=== PATIENT | female | born 1955 | race Caucasian/White ===

== ENCOUNTER → 2020-04-07 08:58 | Outpatient (CLI) | payer MEDICARE, SELFPAY ==
[2020-04-07 09:59] LABS: Alanine Aminotransferase 24 IU/L (<35); Albumin 4.4 g/dL (3.5-5.0); Albumin Globulin Ratio 1.4 (1.0-2.8); Alkaline Phosphatase 117 U/L (38-126); Aspartate Aminotransferase 33 IU/L (14-36); BUN Creatinine Ratio 24.3 (6-22); Bilirubin Total 0.4 mg/dL (0.2-1.3); Blood Urea Nitrogen 27 mg/dL (7-17); Calcium 9.9 mg/dL (8.4-10.2); Carbon Dioxide 27 mmol/L (22-32); Chloride 104 mmol/L (98-107); Cholesterol 191 mg/dL (140-199); Estimated Glomerular Filt Rate 49.6 mL/min (>60); Globulin 3.1 g/dL (1.7-4.1); Glucose 186 mg/dL (80-110); HDL Cholesterol 55 mg/dL (40-60); HEMOLYSIS < 15 (0-50); LDL Cholesterol Calculated 117 mg/dL (<100); Potassium 4.4 mmol/L (3.4-5.1); Sodium 140 mmol/L (137-145); Total Protein 7.5 g/dL (6.3-8.2); Triglycerides 97 mg/dL (35-150)
[2020-04-07 10:07] LABS: Creatinine Urine Random 269.8 mg/dL
[2020-04-07 10:26] LABS: Microalbumi Creatinin Ratio Ur 109.7 ug/mg CR (<30); Microalbumin Urine Random 29.6 mg/dL (0-1.6)
[2020-04-07 10:30] LABS: TSH w/ Reflex to FT4 2.92 uIU/mL (0.47-4.68)
== END ==
PROVIDERS: PCP Internal Medicine; Referring Provider Internal Medicine; Visit Provider Internal Medicine
DX: E10.65 Type 1 diabetes mellitus with hyperglycemia (principal)
CPT/HCPCS: 36415; 80053; 80061; 82043; 82570; 84443

== ENCOUNTER 2020-04-09 09:46 | Emergency (ER) | payer MEDICARE, SELFPAY ==
--- NOTE | 2020-04-09 | DI.CT.S_ITS ---
PROCEDURE: CT CERVICAL SPINE WO CON INDICATIONS: FALL TECHNIQUE: Noncontrast 3 mm thick sections acquired from the skull base to the T4 level. Sagittal and coronal reformats were then constructed. For radiation dose reduction, the following was used: automated exposure control, adjustment of mA and/or kV according to patient size. COMPARISON: [facility], CR, XR HAND LT MIN 3V, 04/09/2020, 10:44. [facility], CT, CT HEAD/BRAIN WO CON, 04/09/2020, 10:44. FINDINGS: Image quality: Excellent. Bones: No fractures or dislocations. Visualized superior ribs are intact. Mild, age-appropriate degenerative changes are seen. Soft tissues: Prevertebral soft tissues are normal in thickness. No paravertebral hematomas. No apical pneumothoraces. IMPRESSION: Normal study for age, without fractures. Dictated by: Bernardino Irving M.D. on 04/09/2020 at 10:02 Approved by: Bernardino Irving M.D. on 04/09/2020 at 10:03
[2020-04-09 10:20] VITALS: BP 138/65; PULSE 74; RESP 16; TEMP 36.5; O2SAT 96
[2020-04-09 10:39] VITALS: BMI 29.0
--- NOTE | 2020-04-09 10:39 | DI.RAD.S_ITS ---
PROCEDURE: XR HAND LT MIN 3V INDICATIONS: fall TECHNIQUE: 3 views of the hand(s) acquired. COMPARISON: None. FINDINGS: Bones: No fractures or dislocations. Carpal bones are normally aligned. No suspicious bony lesions. Age-appropriate bony degenerative changes are seen. Soft tissues: No suspicious soft tissue calcifications. IMPRESSION: No displaced fractures are seen on these plain films. If there is focal tenderness, or other clinical concern for a fracture not seen on these images in this patient with a given history of trauma, please consider a dedicated CT or a short-term followup plain film series (in 1-2 weeks) for further evaluation. Dictated by: Bernardino Irving M.D. on 04/09/2020 at 10:01 Approved by: Bernardino Irving M.D. on 04/09/2020 at 10:01
--- NOTE | 2020-04-09 10:43 | DI.CT.S_ITS ---
PROCEDURE: CT HEAD/BRAIN WO CON INDICATIONS: on Plavix. s/p fall with head injury TECHNIQUE: Noncontrast 4.5 mm thick angled axial sections acquired from the foramen magnum to the vertex, with coronal and sagittal reformats. For radiation dose reduction, the following was used: automated exposure control, adjustment of mA and/or kV according to patient size. COMPARISON: [facility], CR, XR HAND LT MIN 3V, 04/09/2020, 10:44. [facility], CT, CT CERVICAL SPINE WO CON, 04/09/2020, 10:44. FINDINGS: Image quality: Excellent. CSF spaces: Basal cisterns are patent. No extra-axial fluid collections. The ventricles are symmetric in size and shape. Brain: No intracranial bleeds or masses. There is cerebral volume loss for age, with resultant ventricular and sulcal prominence. There are periventricular and deep white matter chronic small vessel ischemic changes. There is intracranial internal carotid artery atherosclerosis. Skull and face: Calvarium and visualized facial bones appear intact, without suspicious lesions. Sinuses: Visualized sinuses and mastoids are clear. IMPRESSION: No acute intracranial hemorrhage is seen. No acute intracranial process is seen. Dictated by: Bernardino Irving M.D. on 04/09/2020 at 9:59 Approved by: Bernardino Irving M.D. on 04/09/2020 at 10:01
--- NOTE | 2020-04-09 11:18 | ED.UPPEXIN ---
HPI - Extremity Injury (Upper) <CHOLO Silva - Last Filed: 04/09/20 15:37> General Chief Complaint: Trauma Stated Complaint: fell, hurt left wrist Time Seen by Provider: 04/09/20 11:08 Source: patient and family Mode of arrival: Family Vehicle Limitations: no limitations History of Present Illness HPI narrative: 64yo female with a history of [place] (currently taking Plavix and aspirin), diabetes type 1, and Parkinson's, presents emergency department for left hand pain after fall. She states fall happened on Friday, she tripped while walking and fell on her left hand and hit the left side of her head on the ground. She denies any loss of consciousness, profuse bleeding, dizziness or lightheadedness before the fall. Patient states she was able to get up and walk around after the fall. She did notice some bruising to her left hand at that time. Denied any vomiting, vision changes, difficulty with speech, or difficulty with gait post fall. Patient states she has felt occasionally lightheaded when transitioning from the sitting to standing position after the fall, states these episodes last 1-2 seconds and only occur when she stands up quickly. Patient denies any other concerns such as vision changes, headache, neck pain, chest pain, shortness of breath, vomiting, diarrhea, dysuria, cough, fever, or any other concerns. Modified trauma. Related Data Allergies Allergy/AdvReac Type Severity Reaction Status Date / Time No Known Drug Allergies Allergy Verified 04/09/20 10:46 Review of Systems <CHOLO Silva - Last Filed: 04/09/20 15:37> Review of Systems Narrative: REVIEW OF SYSTEMS: GENERAL: Denies fever or chills. HENT: No head trauma. EYES: No vision changes. CARDIOVASCULAR: No chest pain or syncope. RESPIRATORY: No shortness of breath or cough. GASTROINTESTINAL: No vomiting, diarrhea, or constipation. GENITOURINARY: No flank pain or dysuria. MUSCULOSKELETAL: Complains of left hand pain, see HPI. INTEGUMENTARY: No lesions, reports bruising, see HPI. NEURO: No numbness, tingling. Patient History <CHOLO Silva - Last Filed: 04/09/20 15:37> Medical History No significant medical problems (Acute) Social History Smoking Status: Never smoker Smoking Status: Never smoker alcohol intake frequency: 0-2 drinks per day Substance Use Type: does not use Exam <CHOLO Silva - Last Filed: 04/09/20 15:37> Initial Vital Signs Initial Vital Signs: Vital Signs Temperature 97.7 F 04/09/20 10:20 Pulse Rate 74 04/09/20 10:20 Respiratory Rate 16 04/09/20 10:20 Blood Pressure 138/65 04/09/20 10:20 Pulse Oximetry 96 04/09/20 10:20 PHYSICAL EXAMINATION: GENERAL: Well groomed, alert, and cooperative. Answers questions promptly and appropriately. Vital signs noted. HENT: Normocephalic, a small 2 cm x 2 cm area of ecchymosis noted to left forehead above left eyebrow. A 1 cm x 2 cm abrasion noted to bridge of nose, no tenderness to palpation, no ecchymosis. EYES: PERRLA, EOMIs, Symmetrical, sclera white, no periorbital swelling. CARDIOVASCULAR: S1 and S2 sounds normal. Regular rate and rhythm, no murmurs, clicks, or bruits. No pedal edema. RESPIRATORY: Normal respiratory rate, trachea midline, airway patent. No stridor, nasal flaring or accessory muscle use. Lungs are clear in all paul. MUSCULOSKELETAL: Ecchymosis noted to palmar aspect of hand tenderness between 2nd and 4th metatarsals. Patient able to move wrist, no tenderness to wrist. Patient able to make a fist slowly due to pain. Small amount of swelling noted to dorsal aspect of hand. No tenderness to shoulders, elbows, hips, knees, or feet. Normal gait and coordination. Equal tone and mass bilaterally. No spinal tenderness or deformities. EXTREMITIES: CMS intact. No pedal edema. SKIN: Warm, dry, soft, appropriate color for ethnicity. Lesion on nose as described above. NEURO: Alert and Oriented X 3. No sensory deficits. PSYCH: Appropriate affect and mood. <Boni Lugo MD - Last Filed: 04/10/20 19:35> Initial Vital Signs Initial Vital Signs: Vital Signs Temperature 97.7 F 04/09/20 10:20 Pulse Rate 74 04/09/20 10:20 Respiratory Rate 16 04/09/20 10:20 Blood Pressure 138/65 04/09/20 10:20 Pulse Oximetry 96 04/09/20 10:20 Scores <CHOLO Silva - Last Filed: 04/09/20 15:37> GCS Bryon coma scale eye opening: Spontaneous Bryon coma scale verbal response: Orientated Bryon coma scale motor response: Obey commands Cuney coma scale total score: 15 Course <CHOLO Silva - Last Filed: 04/09/20 15:37> Course Course Narrative: Patient was re-evaluated before discharge. She was able to transition from sitting position to standing rapidly without dizziness. Orders Ordered: Discontinued Medications Sodium Chloride (Normal Saline 0.9%) 1,000 mls @ 1,000 mls/hr IV BOLUS ONE Stop: 04/09/20 12:19 Last Infusion: 04/09/20 13:00 Dose: 0 mls/hr Documented by: Admin: 04/09/20 11:42 Dose: 1,000 mls/hr Documented by: HERMELINDO Consultations Consultation #1: Patient staffed with Dr. Lugo discussed mechanism of injury, symptoms, tests, has resolved as well as plan of care. Vital Signs Vital signs: Vital Signs - 8 hr 04/09/20 10:20 04/09/20 11:44 Temperature 97.7 F Pulse Rate 74 68 Respiratory Rate 16 16 Blood Pressure [Left Arm] 138/65 133/63 Pulse Oximetry 96 98 <Boni Lugo MD - Last Filed: 04/10/20 19:35> Orders Ordered: Discontinued Medications Sodium Chloride (Normal Saline 0.9%) 1,000 mls @ 1,000 mls/hr IV BOLUS ONE Stop: 04/09/20 12:19 Last Infusion: 04/09/20 13:00 Dose: 0 mls/hr Documented by: Admin: 04/09/20 11:42 Dose: 1,000 mls/hr Documented by: HERMELINDO Vital Signs Vital signs: Vital Signs - 8 hr 04/09/20 10:20 04/09/20 11:44 Temperature 97.7 F Pulse Rate 74 68 Respiratory Rate 16 16 Blood Pressure [Left Arm] 138/65 133/63 Pulse Oximetry 96 98 MDM - Extremity Injury (Upper) <CHOLO Silva - Last Filed: 04/09/20 15:37> Medical Records Attestation: I reviewed the patient's medical records. Lab Data Attestation: I reviewed the patient's lab results. Result diagrams: 04/09/20 11:41 04/09/20 11:41 Labs: Lab Results 04/09/20 04/09/20 04/09/20 Range/Units 11:41 11:41 11:41 WBC 6.8 (4.5-11.0) X10^3/uL RBC 4.31 (4.0-5.2) X10^6/uL Hgb 13.9 (12.0-16.0) g/dL Hct 39.7 (36-46) % MCV 92.1 (80-100) fL MCH 32.2 (26-34) PG MCHC 35.0 (30-36) % RDW 13.2 (11.6-14.8) % Plt Count 254 (150-400) X10^3/uL Neut % (Auto) 71.7 (50-75) % Lymph % (Auto) 21.1 L (25-40) % [place] % (Auto) 5.4 (3-14) % Eos % (Auto) 1.3 L (2-4) % Baso % (Auto) 0.5 (0-2) % Neut # (Auto) 4800 (3088-2075) /uL Lymph # (Auto) 1400 (8497-1759) /uL [place]enedy # (Auto) 400 (0-900) /uL Eos # (Auto) 100 (0-450) /uL Baso # (Auto) 0 (0-100) /uL Sodium 143 (137-145) mmol/L Potassium 4.4 (3.4-5.1) mmol/L Chloride 106 (98-107) mmol/L Carbon Dioxide 31 (22-32) mmol/L BUN 27 H (7-17) mg/dL Creatinine 0.98 (0.52-1.04) mg/dL Estimated GFR 57.3 L (>60) mL/min BUN/Creatinine Ratio 27.6 H (6-22) Glucose 153 H (80-110) mg/dL Calcium 9.2 (8.4-10.2) mg/dL Total Bilirubin 0.5 (0.2-1.3) mg/dL AST 33 (14-36) IU/L ALT 21 (<35) IU/L Alkaline Phosphatase 86 (38-126) U/L Total Creatine Kinase 170 H (30-135) U/L CK-MB (CK-2) 0.80 (<2.37) ng/mL CK-MB (CK-2) Rel Index 0.5 L (1.5-5.0) % Troponin I < 0.012 (0.01-0.034) ng/mL Total Protein 7.3 (6.3-8.2) g/dL Albumin 4.0 (3.5-5.0) g/dL Globulin 3.3 (1.7-4.1) g/dL Albumin/Globulin Ratio 1.2 (1.0-2.8) Imaging Data CT scan - head: Radiologist's Impression: [address] [address] [address] Scan Report Signed Patient: Maribell Banerjee#: [id number] : 6Acct:[id number] Age/Sex: 64 / FDate of Service: 04/09/20 Loc: ED Accession Number: [id number] Procedure: CT head/brain wo con Ordering Provider: Boni Lugo MD PROCEDURE: CT HEAD/BRAIN WO CON INDICATIONS: on Plavix. s/p fall with head injury TECHNIQUE: Noncontrast 4.5 mm thick angled axial sections acquired from the foramen magnum to the vertex, with coronal and sagittal reformats. For radiation dose reduction, the following was used: automated exposure control, adjustment of mA and/or kV according to patient size. COMPARISON: [facility], CR, XR HAND LT MIN 3V, 04/09/2020, 10:44. [facility], CT, CT CERVICAL SPINE WO CON, 04/09/2020, 10:44. FINDINGS: Image quality: Excellent. CSF spaces: Basal cisterns are patent. No extra-axial fluid collections. The ventricles are symmetric in size and shape. Brain: No intracranial bleeds or masses. There is cerebral volume loss for age, with resultant ventricular and sulcal prominence. There are periventricular and deep white matter chronic small vessel ischemic changes. There is intracranial internal carotid artery atherosclerosis. Skull and face: Calvarium and visualized facial bones appear intact, without suspicious lesions. Sinuses: Visualized sinuses and mastoids are clear. IMPRESSION: No acute intracranial hemorrhage is seen. No acute intracranial process is seen. Dictated by: Bernardino Irving M.D. on 04/09/2020 at 9:59 Approved by: Bernardino Irving M.D. on 04/09/2020 at 10:01 CT - cervical spine: Radiologist's Impression: [address] [address] [address] Scan Report Signed Patient: Theresa Banerjee#: [id number] : 6Acct:[id number] Age/Sex: 64 / FDate of Service: 04/09/20 Loc: ED Accession Number: [id number] Procedure: CT cervical spine wo con Ordering Provider: EMANI Chandler PROCEDURE: CT CERVICAL SPINE WO CON INDICATIONS: FALL TECHNIQUE: Noncontrast 3 mm thick sections acquired from the skull base to the T4 level. Sagittal and coronal reformats were then constructed. For radiation dose reduction, the following was used: automated exposure control, adjustment of mA and/or kV according to patient size. COMPARISON: [facility], CR, XR HAND LT MIN 3V, 04/09/2020, 10:44. [facility], CT, CT HEAD/BRAIN WO CON, 04/09/2020, 10:44. FINDINGS: Image quality: Excellent. Bones: No fractures or dislocations. Visualized superior ribs are intact. Mild, age-appropriate degenerative changes are seen. Soft tissues: Prevertebral soft tissues are normal in thickness. No paravertebral hematomas. No apical pneumothoraces. IMPRESSION: Normal study for age, without fractures. Dictated by: Bernardino Irving M.D. on 04/09/2020 at 10:02 Approved by: Bernardino Irving M.D. on 04/09/2020 at 10:03 Extremity x-ray #1: Radiologist's Impression: [address] [address] XRay Report Signed Patient: Theresa Banerjee#: [id number] : 6Acct:[id number] Age/Sex: 64 / FDate of Service: 04/09/20 Loc: ED Accession Number: [id number] Procedure: XR hand LT min 3V Ordering Provider: Boni Lugo MD PROCEDURE: XR HAND LT MIN 3V INDICATIONS: fall TECHNIQUE: 3 views of the hand(s) acquired. COMPARISON: None. FINDINGS: Bones: No fractures or dislocations. Carpal bones are normally aligned. No suspicious bony lesions. Age-appropriate bony degenerative changes are seen. Soft tissues: No suspicious soft tissue calcifications. IMPRESSION: No displaced fractures are seen on these plain films. If there is focal tenderness, or other clinical concern for a fracture not seen on these images in this patient with a given history of trauma, please consider a dedicated CT or a short-term followup plain film series (in 1-2 weeks) for further evaluation. Dictated by: Bernardino Irving M.D. on 04/09/2020 at 10:01 Approved by: Bernardino Irving M.D. on 04/09/2020 at 10:01 ECG Data Interpretation: Normal sinus rhythm. Rate 69, WA interval 146, QTC 424. No ST elevation or ST depression. No T-wave abnormality. Artifact noted in V1 through V3. EKG also viewed by Dr. Lugo per protocol. MDM Narrative Medical decision making narrative: 64 year old female currently taking Plavix and aspirin, presents emergency department for left hand pain and head trauma after a fall while hitting her head. Mechanism of fall appears to be mechanical due to description which is confirmed by her family member in the room. Patient also has a history of Parkinson's that can affect her gait at times. Head and neck CT ordered due to obvious head trauma, patient is currently on a blood thinner. Laboratory work was ordered as patient reported some brief episodes of dizziness when transitioning from sitting to standing post fall. This appears most likely to be orthostatic hypotension which may are may not be related to past fall. However this was completely resolved after administration of fluids. Laboratory work was ordered to evaluate patient for other complications that may results and positional dizziness. Troponin negative, Laboratory work was non-remarkable, EKG within normal limits. Less concern for syncope or presyncopal episode due to laboratory findings, clear description, and lack of other concerning symptoms. I suspect patient's hand pain is most likely caused from a contusion and or hand sprain. There is significant bruising and swelling, x-ray was negative. Patient was encouraged to follow up in 1-2 weeks for further evaluation if pain continues due to significant swelling. She was encouraged to use a wrist brace but not for a prolonged duration of time due to risk for muscle atrophy. Less concern for any other injuries as major joints for palpated without pain, patient was able to walk without difficulty, fall occurred over 24 hours ago and no new symptoms developed. Less concern for intracranial bleed, head and neck CT are negative, small amount of trauma noted on forehead, no high-risk symptoms such as syncope or vomiting post fall. 24 hours have passed since the fall and patient is neurologically intact. Strict return precautions given and follow-up instructions discussed. Patient agreed to plan of care. <Boni Lugo MD - Last Filed: 04/10/20 19:35> Lab Data Labs: Lab Results 04/09/20 04/09/20 04/09/20 Range/Units 11:41 11:41 11:41 WBC 6.8 (4.5-11.0) X10^3/uL RBC 4.31 (4.0-5.2) X10^6/uL Hgb 13.9 (12.0-16.0) g/dL Hct 39.7 (36-46) % MCV 92.1 (80-100) fL MCH 32.2 (26-34) PG MCHC 35.0 (30-36) % RDW 13.2 (11.6-14.8) % Plt Count 254 (150-400) X10^3/uL Neut % (Auto) 71.7 (50-75) % Lymph % (Auto) 21.1 L (25-40) % Kenedy % (Auto) 5.4 (3-14) % Eos % (Auto) 1.3 L (2-4) % Baso % (Auto) 0.5 (0-2) % Neut # (Auto) 4800 (1654-1730) /uL Lymph # (Auto) 1400 (2576-5690) /uL Kenedy # (Auto) 400 (0-900) /uL Eos # (Auto) 100 (0-450) /uL Baso # (Auto) 0 (0-100) /uL Sodium 143 (137-145) mmol/L Potassium 4.4 (3.4-5.1) mmol/L Chloride 106 (98-107) mmol/L Carbon Dioxide 31 (22-32) mmol/L BUN 27 H (7-17) mg/dL Creatinine 0.98 (0.52-1.04) mg/dL Estimated GFR 57.3 L (>60) mL/min BUN/Creatinine Ratio 27.6 H (6-22) Glucose 153 H (80-110) mg/dL Calcium 9.2 (8.4-10.2) mg/dL Total Bilirubin 0.5 (0.2-1.3) mg/dL AST 33 (14-36) IU/L ALT 21 (<35) IU/L Alkaline Phosphatase 86 (38-126) U/L Total Creatine Kinase 170 H (30-135) U/L CK-MB (CK-2) 0.80 (<2.37) ng/mL CK-MB (CK-2) Rel Index 0.5 L (1.5-5.0) % Troponin I < 0.012 (0.01-0.034) ng/mL Total Protein 7.3 (6.3-8.2) g/dL Albumin 4.0 (3.5-5.0) g/dL Globulin 3.3 (1.7-4.1) g/dL Albumin/Globulin Ratio 1.2 (1.0-2.8) Discharge Plan Departure Patient Disposition: Home Clinical Impression: Sprain of wrist Qualifiers: Encounter type: initial encounter Laterality: left Qualified Code(s): S63.502A - Unspecified sprain of left wrist, initial encounter Contusion of hand Qualifiers: Encounter type: initial encounter Laterality: left Qualified Code(s): S60.222A - Contusion of left hand, initial encounter Fall Qualifiers: Encounter type: initial encounter Qualified Code(s): W19.XXXA - Unspecified fall, initial encounter Closed head injury Qualifiers: Encounter type: initial encounter Qualified Code(s): S09.90XA - Unspecified injury of head, initial encounter Discharge Date/Time: 04/09/20 13:01 Instructions: DI for Concussion, DI for Wrist Sprain Activity Restrictions/Additional Instructions: Thank you for entrusting me with your care today. As discussed, your x-ray is negative for any fractures in your hand or wrist. Your head CT and neck CT is negative for any fractures or bleeding. I recommend wearing a brace for 3-5 days to help with hand pain, remove the brace 10 times a day to move in stretch her hand. Try not to wear the brace longer than 7-10 days as it can cause muscle weakness. If you continued to have pain in your hand, follow-up with your primary care provider for further evaluation. Since you hit your head when he fell, you may experience increased tiredness, light sensitivity, and occasional dizziness. If these symptoms worsen or you develop severe pain, vomiting, chest pain, fevers, vision changes, or any other concerns please return emergency department immediately. Referrals: Karis Orozco MD [Primary Care Provider] -
[2020-04-09] MEDS: SODIUM CHLORIDE 0.9% 1,000 ML 1000 ML IV (11:42)
[2020-04-09 11:44] VITALS: BP 133/63; PULSE 68; RESP 16; O2SAT 98
[2020-04-09 11:49] LABS: Add Manual Diff / Slide Review NO; Basophils Absolute Auto 0 /uL (0-100); Basophils Percent Auto 0.5 % (0-2); Eosinophils Absolute Auto 100 /uL (0-450); Eosinophils Percent Auto 1.3 % (2-4); Hematocrit 39.7 % (36-46); Hemoglobin 13.9 g/dL (12.0-16.0); Lymphocytes Absolute Auto 1400 /uL (1100-4500); Lymphocytes Percent Auto 21.1 % (25-40); Mean Corpuscular Hemoglobin 32.2 PG (26-34); Mean Corpuscular Volume 92.1 fL (80-100); Monocytes Absolute Auto 400 /uL (0-900); Monocytes Percent Auto 5.4 % (3-14); Neutrophils Absolute Auto 4800 /uL (1500-7000); Neutrophils Percent Auto 71.7 % (50-75); Platelet Count 254 X10^3/uL (150-400); Red Blood Cell Count 4.31 X10^6/uL (4.0-5.2); Red Cell Distribution Width 13.2 % (11.6-14.8); White Blood Cell Count 6.8 X10^3/uL (4.5-11.0)
[2020-04-09 12:00] LABS: Creatine Kinase 170 U/L (30-135)
[2020-04-09 12:02] LABS: Alanine Aminotransferase 21 IU/L (<35); Albumin Globulin Ratio 1.2 (1.0-2.8); Alkaline Phosphatase 86 U/L (38-126); Aspartate Aminotransferase 33 IU/L (14-36); BUN Creatinine Ratio 27.6 (6-22); Bilirubin Total 0.5 mg/dL (0.2-1.3); Blood Urea Nitrogen 27 mg/dL (7-17); Calcium 9.2 mg/dL (8.4-10.2); Carbon Dioxide 31 mmol/L (22-32); Chloride 106 mmol/L (98-107); Estimated Glomerular Filt Rate 57.3 mL/min (>60); Globulin 3.3 g/dL (1.7-4.1); Glucose 153 mg/dL (80-110); HEMOLYSIS < 15 (0-50); Potassium 4.4 mmol/L (3.4-5.1); Sodium 143 mmol/L (137-145); Total Protein 7.3 g/dL (6.3-8.2)
[2020-04-09 12:13] LABS: Troponin I < 0.012 ng/mL (0.01-0.034)
[2020-04-09 12:16] LABS: CKMB % Relative Index 0.5 % (1.5-5.0)
== END 2020-04-09 13:01 | disposition home or self-care (01) ==
PROVIDERS: Emergency Provider Nurse Practitioner; PCP Internal Medicine
DX: S63.502A Unspecified sprain of left wrist, initial encounter (principal); S60.222A Contusion of left hand, initial encounter; S09.90XA Unspecified injury of head, initial encounter; W19.XXXA Unspecified fall, initial encounter; Z79.01 Long term (current) use of anticoagulants; Z79.82 Long term (current) use of aspirin; E10.9 Type 1 diabetes mellitus without complications; G20 Parkinson's disease
CPT/HCPCS: 36415; 70450; 72125; 73130; 80053; 82550; 82553; 84484; 85025; 93005; 96360; 99285

== ENCOUNTER 2020-06-29 11:31 | Emergency (ER) | payer MEDICARE, SELFPAY ==
[2020-06-29 11:38] VITALS: BP 138/71; PULSE 89; RESP 12; TEMP 36.4; O2SAT 98
--- NOTE | 2020-06-29 11:47 | ED_ITS ---
HPI - Extremity Problem <Zelda Gambino PA-C - Last Filed: 06/29/20 22:32> General Chief complaint: Extremity Problem,Nontraumatic Stated complaint: thinks she has a blood clot in her left leg Time Seen by Provider: 06/29/20 11:38 Source: patient Mode of arrival: Ambulatory History of Present Illness HPI Narrative: A 64-year-old nonsmoking woman with a history of DVT, cardiac stents and type 1 diabetes who presents to the emergency department complaining of 4/10 throbbing left leg pain that began yesterday evening when she was at rest, this morning she woke up to find that her left thigh felt like it had a tight band around it across the front, this has since resolved. She says that the calf pain feels similar to her previous DVT that she had on the right side approximately 8 years ago. She does take aspirin and clopidogrel, she denies any other symptoms and has otherwise been in her normal state of health. She says she has not done anything differently recently in terms of new exercises or activities that might have strained her leg muscles or caused this pain and also denies any recent falls, she has not had any medication changes, she does have an insulin pump. She denies any use of estrogen containing products/medications, any cancer history, recent fever, shortness of breath, chills, nausea, vomiting, chest pain, palpitations, recent travel or prolonged immobility. MD Complaint: extremity pain Onset (ago): hour(s) (16) Pain Consistency: constant Location: left and lower extremity Severity scale (1-10): 4 Quality: dull and other (thobbing in calf, also a band around her upper thigh in front) Radiation: proximal Relieving factors: nothing Associated symptoms: denies other symptoms Context: history of DVT Related Data Allergies Allergy/AdvReac Type Severity Reaction Status Date / Time No Known Drug Allergies Allergy Verified 04/09/20 10:46 Review of Systems <Zelda Gambino PA-C - Last Filed: 06/29/20 22:32> Review of Systems Narrative: GENERAL: Denies chills, fatigue, malaise, fever, sweats. HEENT: Denies sinus pain, ear pain, sore throat, difficulty swallowing, dizziness. RESPIRATORY: Denies dyspnea, cough, wheezing, hemoptysis, sputum. CARDIOVASCULAR: Denies chest pain, palpitations, orthopnea, edema, GASTROINTESTINAL: Denies nausea, vomiting, abdominal pain, diarrhea, constipation, melena. : Denies dysuria, frequency, incontinence, hematuria, urinary retention. MUSCULOSKELETAL: Positive for left calf pain and left thigh pain. denies weakness, joint pain, or bony pain SKIN: Denies rash, skin lesions, or other NEUROLOGIC: Denies weakness, headache, numbness, change in speech, confusion, seizures, incoordination. PSYCHIATRIC: No concerning psychosocial issues. 12 point review of systems is negative except for those stated above Patient History <Zelda Gambino PA-C - Last Filed: 06/29/20 22:32> Medical History No significant medical problems (Acute) Social History Smoking Status: Never smoker Smoking Status: Never smoker alcohol intake frequency: 0-2 drinks per day Substance Use Type: does not use Exam <Zelda Gambino PA-C - Last Filed: 06/29/20 22:32> Narrative Exam Narrative: GENERAL: 64 year old patient appears stated age. Well-nourished, well-developed patient, in mild distress. HEAD: Atraumatic. Normocephalic. EYES: Pupils equal round and reactive. Extraocular motions intact. No scleral icterus. No injection or drainage. ENT: Nose without bleeding, purulent drainage. Airway patent. NECK: Trachea midline. Non tender CARDIOVASCULAR: Regular rate and rhythm without murmurs, gallops, or rubs. RESPIRATORY: Clear to auscultation. Breath sounds equal bilaterally. No wheezes, rales, or rhonchi. GASTROINTESTINAL: Abdomen soft, non-tender, nondistended. EXTREMITIES: The left calf is 33.5 cm and the right calf is 33 cm in diameter measured at 10 cm below the tibial tuberosity. The left calf does not have any appreciable warmth or swelling, it is nontender to palpation, active and passive range of motion of the knee and ankle does not increase her pain, the left thigh is also nontender to palpation without appreciable swelling or erythema. Distal pulses are 2+ bilaterally dorsalis pedis. No edema or joint tenderness. BACK: Nontender without deformity or crepitance. No flank tenderness. NEURO: AOx3. SKIN: No rash or erythema of visible areas Initial Vital Signs Initial Vital Signs: Vital Signs Temperature 97.6 F 06/29/20 11:38 Pulse Rate 89 06/29/20 11:38 Respiratory Rate 12 06/29/20 11:38 Blood Pressure 138/71 06/29/20 11:38 Pulse Oximetry 98 06/29/20 11:38 <Mickie Landaverde MD - Last Filed: 06/29/20 23:52> Initial Vital Signs Initial Vital Signs: Vital Signs Temperature 97.6 F 06/29/20 11:38 Pulse Rate 89 06/29/20 11:38 Respiratory Rate 12 06/29/20 11:38 Blood Pressure 138/71 06/29/20 11:38 Pulse Oximetry 98 06/29/20 11:38 Scores <Zelda Gambino PA-C - Last Filed: 06/29/20 22:32> GCS Bryon coma scale eye opening: Spontaneous [place] coma scale verbal response: Orientated [place] coma scale motor response: Obey commands Bryon coma scale total score: 15 Wells' Criteria for DVT Active Cancer (Treatment within 6 months): No Bedridden recently >3 days or major surgery within 4 weeks: No Calf Swelling >3cm compared to other leg: No Collateral (nonvericose) superficial veins present: No Entire leg swollen: No Localized tenderness along the deep vein system: No Pitting edema, confined to symtomatic leg: No Paralysis, paresis, or recent plaster immobilization of ext: No Previously documented DVT: Yes Alternative dx to DVT as likely or more likely: No Wells' criteria for DVT: 1 Course <Zelda Gambino PA-C - Last Filed: 06/29/20 22:32> Course Course Narrative: This patient presented ambulatory, she is well-appearing she has no shortness of breath, she has normal vitals, given her history of DVT and her description of throbbing mid leg pain this is a concern for DVT, though she is anticoagulated, wells score of 1, basic labs, coags, D-dimer and lower extremity venous ultrasound ordered. 11:43 Orders Ordered: ED Orders 06/29/20 11:46 US periph venous low extrem lt Stat 06/29/20 11:57 Basic Metabolic Panel Stat Complete Blood Count AUTO DIFF Stat D Dimer Stat Magnesium Stat Partial Thromboplastin Time Stat Prothrombin Time INR Stat Vital Signs Vital signs: Vital Signs - 8 hr 06/29/20 11:38 06/29/20 11:52 06/29/20 12:00 Temperature 97.6 F Pulse Rate 89 79 78 Respiratory Rate 12 Blood Pressure 138/71 Pulse Oximetry 98 99 98 06/29/20 12:30 Temperature Pulse Rate 70 Respiratory Rate Blood Pressure Pulse Oximetry 96 <Mickie Landaverde MD - Last Filed: 06/29/20 23:52> Orders Ordered: ED Orders 06/29/20 11:46 perip venous low extrem lt Stat 06/29/20 11:57 Basic Metabolic Panel Stat Complete Blood Count AUTO DIFF Stat D Dimer Stat Magnesium Stat Partial Thromboplastin Time Stat Prothrombin Time INR Stat Vital Signs Vital signs: Vital Signs - 8 hr 06/29/20 11:38 06/29/20 11:52 06/29/20 12:00 Temperature 97.6 F Pulse Rate 89 79 78 Respiratory Rate 12 Blood Pressure 138/71 Pulse Oximetry 98 99 98 06/29/20 12:30 Temperature Pulse Rate 70 Respiratory Rate Blood Pressure Pulse Oximetry 96 MDM - Extremity (Nontraumatic) <Zelda Gambino PA-C - Last Filed: 06/29/20 22:32> Lab Data Result diagrams: 06/29/20 11:57 06/29/20 11:57 Labs: Lab Results 06/29/20 06/29/20 06/29/20 Range/Units 11:57 11:57 11:57 WBC 6.1 (4.5-11.0) X10^3/uL RBC 4.49 (4.0-5.2) X10^6/uL Hgb 14.4 (12.0-16.0) g/dL Hct 41.4 (36-46) % MCV 92.2 (80-100) fL MCH 32.2 (26-34) PG MCHC 34.9 (30-36) % RDW 12.6 (11.6-14.8) % Plt Count 301 (150-400) X10^3/uL Neut % (Auto) 60.4 (50-75) % Lymph % (Auto) 31.5 (25-40) % Loving % (Auto) 5.9 (3-14) % Eos % (Auto) 1.4 L (2-4) % Baso % (Auto) 0.8 (0-2) % Neut # (Auto) 3700 (2216-2355) /uL Lymph # (Auto) 1900 (7216-1710) /uL Loving # (Auto) 400 (0-900) /uL Eos # (Auto) 100 (0-450) /uL Baso # (Auto) 0 (0-100) /uL PT 10.8 (10.1-12.7) SECONDS INR 0.9 (0.9-1.3) APTT 30 (26.4-36.2) SECONDS D-Dimer 229 (<230) ng/mL Sodium 137 (137-145) mmol/L Potassium 4.4 (3.4-5.1) mmol/L Chloride 103 (98-107) mmol/L Carbon Dioxide 27 (22-32) mmol/L BUN 28 H (7-17) mg/dL Creatinine 0.95 (0.52-1.04) mg/dL Estimated GFR 59.4 L (>60) mL/min BUN/Creatinine Ratio 29.5 H (6-22) Glucose 248 H (80-110) mg/dL Calcium 9.2 (8.4-10.2) mg/dL Magnesium 1.9 (1.6-2.3) mg/dL Imaging Data US - DVT: Attestation: I personally reviewed and interpreted this imaging study as follows: Radiologist's Impression: [address] [address] Ultrasound Report Signed Patient: Theresa Banerjee#: [id number] : 6Acct:[id number] Age/Sex: 64 / FDate of Service: 06/29/20 Loc: ED Accession Number: [id number] Procedure: US periph venous low extrem lt Ordering Provider: Zelda Gambino P.A-C PROCEDURE: US PERIPH VENOUS LOW EXTREM LT INDICATIONS: CALF PAIN, HX DVT TECHNIQUE: Real-time imaging, as well as color and pulse Doppler interrogation, were performed of the lower extremity deep veins from the inguinal ligament to the popliteal fossa. COMPARISON: None. FINDINGS: The common femoral, femoral and popliteal veins are normally compressible, and free of intraluminal thrombus. Color and pulse Doppler demonstrate normal phasic intraluminal flow. There is normal augmentation response to distal compression maneuver. IMPRESSION: No evidence of deep vein thrombosis of the left lower extremity. Dictated by: Dima Briones M.D. on 06/29/2020 at 11:30 Approved by: Dima Briones M.D. on 06/29/2020 at 11:30 [facility] Narrative Medical decision making narrative: This well-appearing 64-year-old with a history of cardiac stents and DVT who is anticoagulated presents the emergency department complaining of left calf pain and left thigh pain that was present this morning similar to the pain she had previously with a DVT. Differential diagnoses considered include, DVT, arterial embolism, muscle sprain, strain, Garcia cyst D-dimer was within the normal range, ultrasound did not show evidence of DVT, exam is not suggestive of an arterial embolism, or sprain. The cause of her new pain is unclear however she does have diabetic neuropathy is possible that this is a new manifestation of this for her. She also did note towards the end of her visit that she was ?running around in the [place] yesterday with the grand children? so I also think it is possible that she strained a muscle. She was discharged with return precautions and advised to follow-up with her PCP. All questions were answered. <Mickie Landaverde MD - Last Filed: 06/29/20 23:52> Lab Data Labs: Lab Results 06/29/20 06/29/20 06/29/20 Range/Units 11:57 11:57 11:57 WBC 6.1 (4.5-11.0) X10^3/uL RBC 4.49 (4.0-5.2) X10^6/uL Hgb 14.4 (12.0-16.0) g/dL Hct 41.4 (36-46) % MCV 92.2 (80-100) fL MCH 32.2 (26-34) PG MCHC 34.9 (30-36) % RDW 12.6 (11.6-14.8) % Plt Count 301 (150-400) X10^3/uL Neut % (Auto) 60.4 (50-75) % Lymph % (Auto) 31.5 (25-40) % Loving % (Auto) 5.9 (3-14) % Eos % (Auto) 1.4 L (2-4) % Baso % (Auto) 0.8 (0-2) % Neut # (Auto) 3700 (6299-8733) /uL Lymph # (Auto) 1900 (2284-6963) /uL Loving # (Auto) 400 (0-900) /uL Eos # (Auto) 100 (0-450) /uL Baso # (Auto) 0 (0-100) /uL PT 10.8 (10.1-12.7) SECONDS INR 0.9 (0.9-1.3) APTT 30 (26.4-36.2) SECONDS D-Dimer 229 (<230) ng/mL Sodium 137 (137-145) mmol/L Potassium 4.4 (3.4-5.1) mmol/L Chloride 103 (98-107) mmol/L Carbon Dioxide 27 (22-32) mmol/L BUN 28 H (7-17) mg/dL Creatinine 0.95 (0.52-1.04) mg/dL Estimated GFR 59.4 L (>60) mL/min BUN/Creatinine Ratio 29.5 H (6-22) Glucose 248 H (80-110) mg/dL Calcium 9.2 (8.4-10.2) mg/dL Magnesium 1.9 (1.6-2.3) mg/dL Discharge Plan Departure Patient Disposition: Home Clinical Impression: Acute leg pain Qualifiers: Laterality: left Qualified Code(s): M79.605 - Pain in left leg Discharge Date/Time: 06/29/20 13:10 Instructions: DI for Muscle Strain Activity Restrictions/Additional Instructions: Thank you for allowing us to be part of your care in the emergency department today. Other than having a elevated blood sugar, all of your labs returned normal today (including 1 which would be abnormal if you had a venous blood clot), your ultrasound also looked good and not show any evidence DVT/clot. I'm not sure exactly why you are having this new leg pain, possibly a strained m uscle in your calf, please continue to monitor your symptoms but you can continue your normal activities as long as it is not causing you any worsening pain. Please continue to take all your medications including your anticoagulant and do not hesitate to return to the emergency department or seek medical care if he have new or worsening symptoms of concern to you. I do recommend you follow-up with your primary care provider in the next 1-3 days for an emergency department follow-up visit and a recheck. Referrals: Karis Orozco MD [Primary Care Provider] - <Mickie Landaverde MD - Last Filed: 06/29/20 23:52> Cosign ED Attending Cosignature Attestation: I was immediately available in the dep artment for consultation throughout this patient's visit. I agree with documentation as above. Mickie Landaverde MD
[2020-06-29 11:52] VITALS: PULSE 79; O2SAT 99
[2020-06-29 12:00] VITALS: PULSE 78; O2SAT 98
--- NOTE | 2020-06-29 12:02 | PC.NURSE ---
Addendum entered by Amy Khoury R.N. 06/29/20 12:19: Patient denies chest pain. Original Note: Patient states has chest pain in left leg starting one day ago. Report pain as throbbing and rates as a 3. Pain is mainly located anteriorly from the [place] up to the thigh. Patient has had a blood clot in right leg before and states feels similar.
[2020-06-29 12:05] LABS: Add Manual Diff / Slide Review NO; Basophils Absolute Auto 0 /uL (0-100); Basophils Percent Auto 0.8 % (0-2); Eosinophils Absolute Auto 100 /uL (0-450); Eosinophils Percent Auto 1.4 % (2-4); Hematocrit 41.4 % (36-46); Hemoglobin 14.4 g/dL (12.0-16.0); Lymphocytes Absolute Auto 1900 /uL (1100-4500); Lymphocytes Percent Auto 31.5 % (25-40); Mean Corpuscular HGB Conc 34.9 % (30-36); Mean Corpuscular Hemoglobin 32.2 PG (26-34); Mean Corpuscular Volume 92.2 fL (80-100); Monocytes Absolute Auto 400 /uL (0-900); Monocytes Percent Auto 5.9 % (3-14); Neutrophils Absolute Auto 3700 /uL (1500-7000); Neutrophils Percent Auto 60.4 % (50-75); Platelet Count 301 X10^3/uL (150-400); Red Blood Cell Count 4.49 X10^6/uL (4.0-5.2); Red Cell Distribution Width 12.6 % (11.6-14.8); White Blood Cell Count 6.1 X10^3/uL (4.5-11.0)
[2020-06-29 12:16] LABS: INR 0.9 (0.9-1.3); Prothrombin Time 10.8 SECONDS (10.1-12.7)
[2020-06-29 12:19] LABS: D Dimer 229 ng/mL (<230); PTT Partial Thromboplastin Tim 30 SECONDS (26.4-36.2)
[2020-06-29 12:22] LABS: BUN Creatinine Ratio 29.5 (6-22); Blood Urea Nitrogen 28 mg/dL (7-17); Calcium 9.2 mg/dL (8.4-10.2); Carbon Dioxide 27 mmol/L (22-32); Chloride 103 mmol/L (98-107); Estimated Glomerular Filt Rate 59.4 mL/min (>60); Glucose 248 mg/dL (80-110); HEMOLYSIS 27 (0-50); Magnesium 1.9 mg/dL (1.6-2.3); Potassium 4.4 mmol/L (3.4-5.1); Sodium 137 mmol/L (137-145)
[2020-06-29 12:30] VITALS: PULSE 70; O2SAT 96
[2020-06-29 13:00] VITALS: BP 127/73; PULSE 75; RESP 16; O2SAT 96
== END 2020-06-29 13:10 | disposition home or self-care (01) ==
PROVIDERS: Emergency Provider Student in an Organized Health Care Education/Training Program; PCP Internal Medicine
DX: M79.605 Pain in left leg (principal); Z86.718 Personal history of other venous thrombosis and embolism
CPT/HCPCS: 36415; 80048; 83735; 85025; 85379; 85610; 85730; 93971; 99284

== ENCOUNTER → 2020-11-03 08:59 | Outpatient (CLI) | payer MEDICARE, SELFPAY ==
[2020-11-03 10:26] LABS: Alanine Aminotransferase 44 IU/L (<35); Albumin 3.9 g/dL (3.5-5.0); Albumin Globulin Ratio 1.3 (1.0-2.8); Alkaline Phosphatase 141 U/L (38-126); Aspartate Aminotransferase 42 IU/L (14-36); BUN Creatinine Ratio 25.3 (6-22); Bilirubin Total 0.5 mg/dL (0.2-1.3); Blood Urea Nitrogen 25 mg/dL (7-17); Carbon Dioxide 33 mmol/L (22-32); Chloride 103 mmol/L (98-107); Cholesterol 105 mg/dL (140-199); Estimated Glomerular Filt Rate 56.5 mL/min (>60); Globulin 3.1 g/dL (1.7-4.1); Glucose 181 mg/dL (80-110); HDL Cholesterol 54 mg/dL (40-60); HEMOLYSIS < 15 (0-50); LDL Cholesterol Calculated 30 mg/dL (<100); Potassium 4.2 mmol/L (3.4-5.1); Sodium 139 mmol/L (137-145); Triglycerides 107 mg/dL (35-150)
== END ==
PROVIDERS: PCP Internal Medicine; Referring Provider Internal Medicine; Visit Provider Internal Medicine
DX: E10.65 Type 1 diabetes mellitus with hyperglycemia (principal)
CPT/HCPCS: 36415; 80053; 80061

== ENCOUNTER 2021-01-14 13:50 | Emergency (ER) | payer MEDICARE, SELFPAY ==
[2021-01-14] VITALS (9 sets, daily range): BP systolic 140–159; BP diastolic 65–76; PULSE 71–86; RESP 11–17; TEMP 36.7; O2SAT 96–100; BMI 30.5
[2021-01-14 14:14] LABS: Add Manual Diff / Slide Review NO; Basophils Absolute Auto 100 /uL (0-100); Basophils Percent Auto 0.6 % (0-2); Eosinophils Absolute Auto 100 /uL (0-450); Eosinophils Percent Auto 0.8 % (2-4); Hematocrit 44.2 % (36-46); Lymphocytes Absolute Auto 1700 /uL (1100-4500); Lymphocytes Percent Auto 20.4 % (25-40); Mean Corpuscular HGB Conc 33.8 % (30-36); Mean Corpuscular Hemoglobin 31.1 PG (26-34); Mean Corpuscular Volume 91.9 fL (80-100); Monocytes Absolute Auto 500 /uL (0-900); Neutrophils Absolute Auto 6100 /uL (1500-7000); Neutrophils Percent Auto 72.2 % (50-75); Platelet Count 316 X10^3/uL (150-400); Red Blood Cell Count 4.81 X10^6/uL (4.0-5.2); Red Cell Distribution Width 12.8 % (11.6-14.8); White Blood Cell Count 8.4 X10^3/uL (4.5-11.0)
[2021-01-14 14:25] LABS: Alanine Aminotransferase 47 IU/L (<35); Albumin 4.2 g/dL (3.5-5.0); Albumin Globulin Ratio 1.3 (1.0-2.8); Alkaline Phosphatase 105 U/L (38-126); Aspartate Aminotransferase 47 IU/L (14-36); BUN Creatinine Ratio 22.1 (6-22); Bilirubin Total 0.5 mg/dL (0.2-1.3); Blood Urea Nitrogen 23 mg/dL (7-17); Carbon Dioxide 32 mmol/L (22-32); Chloride 103 mmol/L (98-107); Estimated Glomerular Filt Rate 53.3 mL/min (>60); Globulin 3.3 g/dL (1.7-4.1); Glucose 209 mg/dL (80-110); HEMOLYSIS < 15 (0-50); Lipase 43 U/L (23-300); Sodium 140 mmol/L (137-145); Total Protein 7.5 g/dL (6.3-8.2)
--- NOTE | 2021-01-14 14:30 | ED.ABDPAIN ---
HPI - Abdominal Pain General Chief Complaint: Abdominal Pain Stated Complaint: pain in right lower abdomen for about a week Time Seen by Provider: 01/14/21 13:50 Source: patient Mode of arrival: Ambulatory Limitations: no limitations History of Present Illness HPI narrative: 65F nonsmoker presents with a chief complaint of right lower quadrant pain for approximately 1 week. She states that it probably started with a sudden onset but has been gradually worsening. She states is worse when she moves and improves with rest. She denies any radiation of her pain. She says at its worst it is 7/10 and currently it is 5/10 and aching crampy in nature. She denies any fever chills nor change in her appetite. She has had no nausea, vomiting or diarrhea. She denies any constipation, dysuria, frequency or urgency. She denies any injury, bending, lifting, twisting or other abnormal activities. Related Data Allergies Allergy/AdvReac Type Severity Reaction Status Date / Time No Known Drug Allergies Allergy Verified 04/09/20 10:46 Review of Systems Constitutional Constitutional: Denies chills, Denies fatigue, Denies fever(s), Denies frequent falls, Denies lethargy and Denies weakness Eyes Eyes: Denies change in vision, Denies eye discharge, Denies irritation and Denies loss of vision ENT Ears, Nose, Mouth, and Throat: Denies change in voice, Denies dizziness, Denies neck pain, Denies sore throat and Denies throat swelling Cardiovascular Cardiovascular: Denies chest pain, Denies irregular heart rhythm, Denies lightheadedness, Denies palpitations, Denies dyspnea, Denies dyspnea on exertion and Denies orthopnea Respiratory Respiratory: Denies cough, Denies dyspnea, Denies dyspnea on exertion and Denies wheezing Gastrointestinal Gastrointestinal: Reports abdominal pain, Denies change in bowel habits, Denies diarrhea, Denies nausea and Denies vomiting Musculoskeletal Musculoskeletal: Denies neck pain and Denies numbness Integumentary/Breasts Skin/Breast: Denies pruritus, Denies erythema, Denies rash and Denies wounds Neurologic Neurologic: Denies behavioral changes, Denies confusion, Denies dizziness, Denies frequent falls, Denies loss of vision, Denies numbness and Denies weakness Psychiatric Psychiatric: Denies anxiety, Denies behavioral changes, Denies confusion, Denies depression, Denies homicidal ideation and Denies suicidal ideation Endocrine Endocrine: Denies fatigue, Denies flushing and Denies palpitations Hematologic/Lymphatic Hematologic/Lymphatic: Denies easy bruising Allergic/Immunologic Allergic/Immunologic: Denies urticaria, Denies throat swelling and Denies wheezing Patient History Medical History (Updated 01/14/21 @ 15:38 by Fletcher Malik DO) No significant medical problems Social History Smoking Status: Never smoker Smoking Status: Never smoker alcohol intake frequency: 0-2 drinks per day Substance Use Type: does not use Exam Narrative Exam Narrative: GENERAL: [65] year old patient appears stated age. Well-nourished, well-developed patient, in mild distress. Flat affect HEAD: Atraumatic. Normocephalic. EYES: Pupils equal round and reactive. Extraocular motions intact. No scleral icterus. No injection or drainage. ENT: Nose without bleeding, purulent drainage. Throat without erythema, tonsillar hypertrophy or exudate. Airway patent. NECK: Trachea midline. Non tender CARDIOVASCULAR: Regular rate and rhythm without murmurs, gallops, or rubs. RESPIRATORY: Clear to auscultation. Breath sounds equal bilaterally. No wheezes, rales, or rhonchi. GASTROINTESTINAL: Abdomen soft, mild tenderness to palpation, nondistended. EXTREMITIES: No edema or joint tenderness. BACK: Nontender without deformity or crepitance. No flank tenderness. NEURO: AOx3. SKIN: No rash or erythema of visible areas Initial Vital Signs Initial Vital Signs: Vital Signs Temperature 98.0 F 01/14/21 13:58 Pulse Rate 86 01/14/21 13:58 Respiratory Rate 16 01/14/21 13:58 Blood Pressure 159/76 H 01/14/21 13:58 Pulse Oximetry 97 01/14/21 13:58 Course Orders Ordered: ED Orders 01/14/21 14:00 Complete Blood Count AUTO DIFF Stat Comprehensive Metabolic Panel Stat Lipase Stat 01/14/21 14:02 EKG-12 Lead Stat 01/14/21 14:34 CT abdomen pelvis w con Stat Discontinued Medications Sodium Chloride (Normal Saline 0.9%) 1,000 mls @ 150 mls/hr IV CONT FAVIO Vital Signs Vital signs: Vital Signs - 8 hr 01/14/21 13:58 01/14/21 13:59 01/14/21 14:00 Temperature 98.0 F Pulse Rate 86 81 80 Respiratory Rate 16 15 11 L Blood Pressure 159/76 H Pulse Oximetry 97 99 100 01/14/21 14:06 01/14/21 14:30 01/14/21 14:44 Temperature Pulse Rate 78 71 77 Respiratory Rate 15 13 17 Blood Pressure 149/72 H 140/65 155/70 H Pulse Oximetry 99 96 99 01/14/21 15:00 01/14/21 15:29 01/14/21 15:30 Temperature Pulse Rate 82 72 71 Respiratory Rate 13 15 12 Blood Pressure 145/65 H 149/67 H Pulse Oximetry 99 96 98 MDM - Abdominal Pain Lab Data Result diagrams: 01/14/21 14:00 01/14/21 14:00 Labs: Lab Results 01/14/21 01/14/21 Range/Units 14:00 14:00 WBC 8.4 (4.5-11.0) X10^3/uL RBC 4.81 (4.0-5.2) X10^6/uL Hgb 15.0 (12.0-16.0) g/dL Hct 44.2 (36-46) % MCV 91.9 (80-100) fL MCH 31.1 (26-34) PG MCHC 33.8 (30-36) % RDW 12.8 (11.6-14.8) % Plt Count 316 (150-400) X10^3/uL Neut % (Auto) 72.2 (50-75) % Lymph % (Auto) 20.4 L (25-40) % Teller % (Auto) 6.0 (3-14) % Eos % (Auto) 0.8 L (2-4) % Baso % (Auto) 0.6 (0-2) % Neut # (Auto) 6100 (7812-6643) /uL Lymph # (Auto) 1700 (2830-4290) /uL Teller # (Auto) 500 (0-900) /uL Eos # (Auto) 100 (0-450) /uL Baso # (Auto) 100 (0-100) /uL Sodium 140 (137-145) mmol/L Potassium 4.0 (3.4-5.1) mmol/L Chloride 103 (98-107) mmol/L Carbon Dioxide 32 (22-32) mmol/L BUN 23 H (7-17) mg/dL Creatinine 1.04 (0.52-1.04) mg/dL Estimated GFR 53.3 L (>60) mL/min BUN/Creatinine Ratio 22.1 H (6-22) Glucose 209 H (80-110) mg/dL Calcium 9.0 (8.4-10.2) mg/dL Total Bilirubin 0.5 (0.2-1.3) mg/dL AST 47 H (14-36) IU/L ALT 47 H (<35) IU/L Alkaline Phosphatase 105 (38-126) U/L Total Protein 7.5 (6.3-8.2) g/dL Albumin 4.2 (3.5-5.0) g/dL Globulin 3.3 (1.7-4.1) g/dL Albumin/Globulin Ratio 1.3 (1.0-2.8) Lipase 43 (23-300) U/L Point of care testing: Urine Dip Bedside Urine Glucose Negative Bedside Urine Bilirubin - Negative Bedside Urine Ketone - Negative Urine Specific Susan 1.030 Bedside Urine Occult Blood - Negative Bedside Urine Protein + 30 Bedside Urine Urobilinogen - Negative Bedside Urine Leukocytes +/- [address] scan - abdomen/pelvis: Radiologist's Impression: Chart Viewer Diagnostics DATE TYPE STATUS REF RANGE/AUTHOR Hx Today 14:34 Bernardino Ivring 06/29/20 11:46 Dima Briones 04/09/20 10:43 Bernardino Irving 04/09/20 10:39 Bernardino Irving 04/09/20 00:00 Bernardino Irving Maribell Banerjee, F0 1955 REG [facility], [facility] ED R12 162.56cm 80.739kg BMI: 30.6kg/m? Abdominal Pain Search Chart No Data to Display No Data to Display ONSET Today 15:00 Maribell Banerjee F [address] [id number] Scan ReportSigned Patient: Theresa Banerjee#: [id number]: 1955cct:[id number]/Sex: 65 / FDate of Service: 01/14/21Loc: EDAccession Number: [id number] Procedure: CT abdomen pelvis w con Ordering Provider: Fletcher Malik D.O. PROCEDURE: CT ABDOMEN PELVIS W CON INDICATIONS: severe RLQ pain, nausea TECHNIQUE: After the administration of intravenous contrast, 5 mm thick sections acquired from the diaphragm to the symphysis. 5 mm coronal and sagittal reformats were acquired. For radiation dose reduction, the following was used: automated exposure control, adjustment of mA and/or kV according to patient size. COMPARISON: None. FINDINGS: Image quality: Excellent. ABDOMEN: Lung bases: Lung bases are clear. Heart size is normal. Solid organs: Liver is normal in size and enhancement. Gallbladder wall is not thickened. Biliary system is non dilated. Pancreas enhances normally. Spleen is normal in size and enhancement. No adrenal nodules. Kidneys demonstrate normal size and enhancement, without hydronephrosis. Peritoneum and bowel: In this patient with this given history, scrutiny is given to the appendix and the right lower quadrant. The appendix is well seen and is normal, as on series 4, image 27. No focal right lower quadrant inflammatory changes can be seen. Apparent calcified lymph nodes can be seen involving the right lower quadrant. There is a moderate to prominent amount of stool seen within the colon. No dilated loops of small bowel are seen. No free air or significant free fluid can be seen. Nodes and vessels: No retroperitoneal or mesenteric adenopathy by size criteria. Aorta and inferior vena cava are normal in size. Atherosclerotic calcification is noted. Miscellaneous: No ventral hernias. PELVIS: Genitourinary: Bladder wall thickness is normal. This patient is status post hysterectomy. No adnexal masses are seen. Miscellaneous: No inguinal hernias or adenopathy. Bones: No suspicious bony lesions. No acute appearing vertebral body compression fractures. Mild central compression deformities are seen involving T11 and L5, without acute features. IMPRESSION: Normal appendix. No focal right lower quadrant inflammatory changes are seen. There is a moderate amount of stool seen within the colon. Please correlate with an underlying history of constipation. Incidental note is made of: Hysterectomy Remote appearing T11 and L5 central compression deformities Dictated by: Bernardino Irving M.D. on 01/14/2021 at 14:14 Approved by: Bernardino Irving M.D. on 01/14/2021 at 14:17 [facility] Narrative Medical decision making narrative: Multiple etiologies for patient's symptoms considered including: [Bowel obstruction versus appendicitis versus kidney stone versus other. Subtle suggestion of leukocytes initial urine, patient has no urine symptoms, will not treat for UTI at this point, will await culture] Patient's symptoms improved over duration of stay with above-stated therapies. Findings and discharge diagnosis discussed with patient/family followed by verbalization of understanding Return precautions discussed with patient/family whom verbalize understanding. Discharge Plan Departure Patient Disposition: Home Clinical Impression: Abdominal pain Qualifiers: Abdominal location: right lower quadrant Qualified Code(s): R10.31 - Right lower quadrant pain Instructions: DI for Abdominal Pain-Adult Activity Restrictions/Additional Instructions: *You have been diagnosed with [abdominal pain in the right lower quadrant, labs and CT scan are very reassuring. The CT scan states no appendicitis but does suggest that there was a large amount of stool and constipation.] *What to do: *Take over the counter medications as directed: 1. Metamucil - bulk forming laxative adds fiber 2. Colace - softens your stool 3. Dulcolax Suppository - stimulates your bowels from the bottom *Follow up with your primary care provider in 2-3 days, call for appointment *Return to ER if you should have any new, worsening or concerning symptoms *Drink plenty of water and eat foods high in fiber *Try to be as active as possible, consider walking your dog daily ] Referrals: Karis Orozco MD [Primary Care Provider] -
--- NOTE | 2021-01-14 14:34 | DI.CT.S_ITS ---
PROCEDURE: CT ABDOMEN PELVIS W CON INDICATIONS: severe RLQ pain, nausea TECHNIQUE: After the administration of intravenous contrast, 5 mm thick sections acquired from the diaphragm to the symphysis. 5 mm coronal and sagittal reformats were acquired. For radiation dose reduction, the following was used: automated exposure control, adjustment of mA and/or kV according to patient size. COMPARISON: None. FINDINGS: Image quality: Excellent. ABDOMEN: Lung bases: Lung bases are clear. Heart size is normal. Solid organs: Liver is normal in size and enhancement. Gallbladder wall is not thickened. Biliary system is non dilated. Pancreas enhances normally. Spleen is normal in size and enhancement. No adrenal nodules. Kidneys demonstrate normal size and enhancement, without hydronephrosis. Peritoneum and bowel: In this patient with this given history, scrutiny is given to the appendix and the right lower quadrant. The appendix is well seen and is normal, as on series 4, image 27. No focal right lower quadrant inflammatory changes can be seen. Apparent calcified lymph nodes can be seen involving the right lower quadrant. There is a moderate to prominent amount of stool seen within the colon. No dilated loops of small bowel are seen. No free air or significant free fluid can be seen. Nodes and vessels: No retroperitoneal or mesenteric adenopathy by size criteria. Aorta and inferior vena cava are normal in size. Atherosclerotic calcification is noted. Miscellaneous: No ventral hernias. PELVIS: Genitourinary: Bladder wall thickness is normal. This patient is status post hysterectomy. No adnexal masses are seen. Miscellaneous: No inguinal hernias or adenopathy. Bones: No suspicious bony lesions. No acute appearing vertebral body compression fractures. Mild central compression deformities are seen involving T11 and L5, without acute features. IMPRESSION: Normal appendix. No focal right lower quadrant inflammatory changes are seen. There is a moderate amount of stool seen within the colon. Please correlate with an underlying history of constipation. Incidental note is made of: Hysterectomy Remote appearing T11 and L5 central compression deformities Dictated by: Bernardino Irving M.D. on 01/14/2021 at 14:14 Approved by: Bernardino Irving M.D. on 01/14/2021 at 14:17
== END 2021-01-14 15:56 | disposition home or self-care (01) ==
PROVIDERS: Emergency Provider Emergency Medicine; PCP Internal Medicine
DX: R10.31 Right lower quadrant pain (principal); R11.0 Nausea
CPT/HCPCS: 36415; 74177; 80053; 81003; 83690; 85025; 93005; 93010; 99281; 99284; Q9967

== ENCOUNTER → 2021-02-23 14:44 | Outpatient (ROUT) | payer MEDICARE, SELFPAY ==
[2021-02-23 16:32] LABS: Creatinine Urine Random 186.7 mg/dL
[2021-02-23 16:37] LABS: Microalbumi Creatinin Ratio Ur 49.2 ug/mg CR (<30); Microalbumin Urine Random 9.2 mg/dL (0-1.6)
== END ==
PROVIDERS: PCP Internal Medicine; Visit Provider Internal Medicine
DX: E10.40 Type 1 diabetes mellitus with diabetic neuropathy, unspecified (principal)
CPT/HCPCS: 82043; 82570

== ENCOUNTER 2021-04-07 11:48 | Emergency (ER) | payer MEDICARE, SELFPAY ==
[2021-04-07 11:50] VITALS: BP 121/76; PULSE 78; RESP 17; TEMP 36.6; O2SAT 97
[2021-04-07 12:00] VITALS: BP 121/76; PULSE 78; RESP 25; TEMP 36.6; O2SAT 99
--- NOTE | 2021-04-07 12:05 | DI.CT.S_ITS ---
PROCEDURE: CT HEAD/BRAIN WO CON INDICATIONS: fall on Plavix TECHNIQUE: Noncontrast 4.5 mm thick angled axial sections acquired from the foramen magnum to the vertex, with coronal and sagittal reformats. For radiation dose reduction, the following was used: automated exposure control, adjustment of mA and/or kV according to patient size. COMPARISON: [facility], CR, XR RIBS LT MIN 3V W CXR1V, 04/07/2021, 12:15. [facility], CT, CT HEAD/BRAIN WO CON, 04/09/2020, 10:44. FINDINGS: Image quality: Excellent. CSF spaces: Basal cisterns are patent. No extra-axial fluid collections. The ventricles are symmetric in size and shape. Brain: No intracranial bleeds or masses. There is cerebral volume loss for age, with resultant ventricular and sulcal prominence. There are periventricular and deep white matter chronic small vessel ischemic changes. There is intracranial internal carotid artery atherosclerosis. Skull and face: Calvarium and visualized facial bones appear intact, without suspicious lesions. Sinuses: Visualized sinuses and mastoids are clear. IMPRESSION: No acute intracranial hemorrhage can be seen. Normal intracranial study for age. Stable from prior. Dictated by: Bernardino Irving M.D. on 04/07/2021 at 11:41 Approved by: Bernardino Irving M.D. on 04/07/2021 at 11:42
--- NOTE | 2021-04-07 12:05 | DI.RAD.S_ITS ---
PROCEDURE: XR RIBS LT MIN 3V W CXR1V INDICATIONS: rib pain TECHNIQUE: 2 views of the left ribs were acquired, along with a single view chest. COMPARISON: [facility], CT, CT ABDOMEN PELVIS W CON, 01/14/2021, 14:38. [facility], CT, CT HEAD/BRAIN WO CON, 04/07/2021, 12:09. FINDINGS: Surgical changes and devices: None. Bones and chest wall: No fractures or dislocations. No suspicious bony lesions. Overlying soft tissues appear unremarkable. Age-appropriate bony degenerative changes are seen. Lungs and pleura: No pleural effusions or pneumothorax. Lungs appear clear. Mediastinum: Mediastinal contours appear normal. Heart size is normal. IMPRESSION: No displaced rib fracture or pneumothorax can be seen. Dictated by: Bernardino Irving M.D. on 04/07/2021 at 11:39 Approved by: eBrnardino Irving M.D. on 04/07/2021 at 11:41
--- NOTE | 2021-04-07 12:26 | ED.FALL ---
HPI - Fall General Chief Complaint: Trauma Stated Complaint: Fell and hit head Time Seen by Provider: 04/07/21 11:57 Source: patient and family Mode of arrival: Wheelchair Limitations: no limitations History of Present Illness HPI Narrative: Patient is a 65-year-old female who presents after ground level fall, she states she tripped and fell over on even concrete. She actually landed on both knees 1st and then fell to left side scratching her face and hitting her head. No loss of consciousness no nausea or vomiting. She is ambulatory afterwards. She has multiple abrasions some on the left side of her face and her knees. She has no neck pain. She does take Plavix for coronary artery disease and 2 MIs. MD complaint: fall Fall from: standing Place fall occurred: street Context: tripped/slipped Related Data Allergies Allergy/AdvReac Type Severity Reaction Status Date / Time No Known Drug Allergies Allergy Verified 04/09/20 10:46 Review of Systems Review of Systems Narrative: GENERAL: Denies chills, fatigue, malaise, fever, sweats, travel HEENT: Denies sinus pain, ear pain, sore throat, difficulty swallowing, neck pain RESPIRATORY: Denies dyspnea, cough, wheezing, hemoptysis, sputum. CARDIOVASCULAR: Denies chest pain, palpitations, orthopnea, edema GASTROINTESTINAL: Denies nausea, vomiting, abdominal pain, diarrhea, constipation, melena. : Denies dysuria, frequency, incontinence, hematuria, urinary retention, flank pain. MUSCULOSKELETAL: Denies weakness, joint pain, or bony pain SKIN: Multiple abrasions see HPI NEUROLOGIC: Denies weakness, dizziness, headache, numbness, change in speech, confusion PSYCHIATRIC: No concerning psychosocial issues. 12 point review of systems is negative except for those stated above and HPI Patient History Medical History Coronary artery disease No significant medical problems Social History Smoking Status: Never smoker Smoking Status: Never smoker alcohol intake frequency: 0-2 drinks per day Substance Use Type: does not use Exam Initial Vital Signs Initial Vital Signs: Vital Signs Temperature 97.9 F 04/07/21 11:50 Pulse Rate 78 04/07/21 11:50 Respiratory Rate 17 04/07/21 11:50 Blood Pressure 121/76 04/07/21 11:50 Pulse Oximetry 97 04/07/21 11:50 GENERAL: Alert 65-year-old female who appears uncomfortable and in no acute distress. HEENT: Head atraumatic,EOMI, pupils reactive, face symmetric, superficial abrasions noted on left side of face. No zygomatic step-offs no entrapment mild swelling on she NECK: No vertebral tenderness no step-offs full flexion extension and rotation CARDIOVASCULAR: Regular rate and rhythm without murmurs, rubs or gallops. RESPIRATORY: Breath sounds equal bilaterally, no wheezes rales or rhonchi. ABDOMEN: Soft, nontender. Normoactive bowel sounds all 4 quadrants. No guarding or rebound. EXTREMITIES: Normal range of motion, no clubbing or edema. Neurovascularly intact NEUROLOGICAL: Alert and oriented x4.Normal gait and speech. Cranial nerves II through XII grossly intact. SKIN: Skin abrasions on face and bilateral knees no lacerations Scores Nexus Score for C-Spine Focal Neurologic deficit present: No Midline spinal tenderness present: No Altered level of conciousness present: No Intoxication present: No Distracting Injury Present: No Nexus Criteria for C-spine: 0 Course Orders Ordered: ED Orders 04/07/21 12:05 CT head/brain wo con Stat XR ribs LT min 3V w CXR1V Stat Discontinued Medications Bacitracin (Bacitracin Oint 0.9 Gm Pckt) 6 applic TOP NOW ONE Stop: 04/07/21 12:52 Last Admin: 04/07/21 13:16 Dose: 6 applic Documented by: CTRREECE Ketorolac Tromethamine (Ketorolac 30 Mg/Ml Vial) 60 mg IM NOW ONE Stop: 04/07/21 13:07 Last Admin: 04/07/21 13:16 Dose: 60 mg Documented by: CTR.DARIO Vital Signs Vital signs: Vital Signs - 8 hr 04/07/21 11:50 04/07/21 12:00 Temperature 97.9 F 97.9 F Pulse Rate 78 78 Respiratory Rate 17 25 H Blood Pressure 121/76 121/76 Pulse Oximetry 97 99 MDM - Fall Lab Data Labs: Point of Care Testing Glucose POC 122 Imaging Data Extremity x-ray #1: Radiologist's Impression: PROCEDURE: XR RIBS LT MIN 3V W CXR1V INDICATIONS: rib pain TECHNIQUE: 2 views of the left ribs were acquired, along with a single view chest. COMPARISON: [facility], CT, CT ABDOMEN PELVIS W CON, 01/14/2021, 14:38. [facility], CT, CT HEAD/BRAIN WO CON, 04/07/2021, 12:09. FINDINGS: Surgical changes and devices: None. Bones and chest wall: No fractures or dislocations. No suspicious bony lesions. Overlying soft tissues appear unremarkable. Age-appropriate bony degenerative changes are seen. Lungs and pleura: No pleural effusions or pneumothorax. Lungs appear clear. Mediastinum: Mediastinal contours appear normal. Heart size is normal. IMPRESSION: No displaced rib fracture or pneumothorax can be seen. Dictated by: Bernardino Irving M.D. on 04/07/2021 at 11:39 Approved by: Bernardino Ivring M.D. on 04/07/2021 at 11:41 CT scan - head: Radiologist's Impression: PROCEDURE: CT HEAD/BRAIN WO CON INDICATIONS: fall on Plavix TECHNIQUE: Noncontrast 4.5 mm thick angled axial sections acquired from the foramen magnum to the vertex, with coronal and sagittal reformats. For radiation dose reduction, the following was used: automated exposure control, adjustment of mA and/or kV according to patient size. COMPARISON: [facility], CR, XR RIBS LT MIN 3V W CXR1V, 04/07/2021, 12:15. [facility], CT, CT HEAD/BRAIN WO CON, 04/09/2020, 10:44. FINDINGS: Image quality: Excellent. CSF spaces: Basal cisterns are patent. No extra-axial fluid collections. The ventricles are symmetric in size and shape. Brain: No intracranial bleeds or masses. There is cerebral volume loss for age, with resultant ventricular and sulcal prominence. There are periventricular and deep white matter chronic small vessel ischemic changes. There is intracranial internal carotid artery atherosclerosis. Skull and face: Calvarium and visualized facial bones appear intact, without suspicious lesions. Sinuses: Visualized sinuses and mastoids are clear. IMPRESSION: No acute intracranial hemorrhage can be seen. Normal intracranial study for age. Stable from prior. Dictated by: Bernardino Irving M.D. on 04/07/2021 at 11:41 MDM Narrative Medical decision making narrative: Patient has had a mechanical fall she has some mild abrasions but no significant injury. Workup is overall reassuring Discharge Plan Departure Patient Disposition: Home Clinical Impression: Closed head injury Qualifiers: Encounter type: initial encounter Qualified Code(s): S09.90XA - Unspecified injury of head, initial encounter Contusion Qualifiers: Encounter type: initial encounter Contusion area: knee Instructions: Contusion, Closed Head Injury Activity Restrictions/Additional Instructions: *You have been diagnosed with contusions, closed head injury *What to do: At this time images are reassuring. You have multiple abrasions and contusions. Placed bacitracin ointment is over the areas 1 to 2 times a day *Continue to take medications as directed Tylenol 650 mg every 4-6 hours needed for [id number] pain *Follow up with your primary care provider in 2-3 days *Return to ER if you should have increasing pain, persistent vomiting, weakness numbness or tingling or any new, worsening or concerning symptoms Referrals: Karis Orozco MD [Primary Care Provider] -
[2021-04-07] MEDS: BACITRACIN OINT 0.9 GM PCKT 6 APPLIC TOP (13:16)
[2021-04-07] MEDS: KETOROLAC 30 MG/ML VIAL 60 MG IM (13:16)
[2021-04-07 13:42] VITALS: BP 145/66; PULSE 66; RESP 18; O2SAT 100
== END 2021-04-07 13:43 | disposition home or self-care (01) ==
PROVIDERS: Emergency Provider Emergency Medicine; PCP Internal Medicine
DX: S09.90XA Unspecified injury of head, initial encounter (principal); R07.81 Pleurodynia; S80.00XA Contusion of unspecified knee, initial encounter; S00.81XA Abrasion of other part of head, initial encounter; S80.212A Abrasion, left knee, initial encounter; S80.211A Abrasion, right knee, initial encounter; Z79.01 Long term (current) use of anticoagulants
CPT/HCPCS: 70450; 71101; 82962; 96372; 99284; J1885

== ENCOUNTER → 2021-11-05 17:54 | Outpatient (CLI) | payer MEDICARE, SELFPAY ==
--- NOTE | 2021-11-05 | DI.MG.S_ITS ---
BILATERAL DIGITAL SCREENING MAMMOGRAM 3D/2D WITH CAD: 11/05/2021 CLINICAL: Routine screening. Family history of breast cancer. Comparison is made to exams dated: 06/16/2017 mammogram, 05/04/2015 mammogram, 03/24/2015 mammogram, and 11/22/2013 mammogram - outside location. There are scattered fibroglandular elements in both breasts. Current study was also evaluated with a Computer Aided Detection (CAD) system. No significant masses, calcifications, or other findings are seen in either breast. There has been no significant interval change. IMPRESSION: NEGATIVE There is no mammographic evidence of malignancy. A 1 year screening mammogram is recommended. This exam was interpreted at Station ID: [id number]. NOTE: For mammograms, a report in lay terms will be sent to the patient. Approximately 15% of breast malignancies will not be visualized mammographically. In the management of a palpable breast mass, a negative mammogram must not discourage biopsy of a clinically suspicious lesion. Electronically Signed By: Alfonso zavala/blanca:11/06/2021 07:11:37 letter sent: Normal Exam ACR BI-RADS Category 1: Negative [id number]
== END ==
PROVIDERS: PCP Internal Medicine; Referring Provider Internal Medicine; Visit Provider Internal Medicine
DX: Z12.31 Encounter for screening mammogram for malignant neoplasm of breast (principal); Z80.3 Family history of malignant neoplasm of breast
CPT/HCPCS: 77063; 77067

== ENCOUNTER 2022-08-30 10:04 | Inpatient (IN) | payer MEDICARE, SELFPAY ==
[2022-08-30] VITALS (16 sets, daily range): BP systolic 124–171; BP diastolic 62–79; PULSE 75–88; RESP 14–19; TEMP 35.7–37.1; O2SAT 91–100; BMI 31.9
--- NOTE | 2022-08-30 10:20 | DI.RAD.S_ITS ---
PROCEDURE: XR ANKLE RT MIN 3V INDICATIONS: fall with bilateral ankle pain TECHNIQUE: 3 views of the ankle were acquired. COMPARISON: None. FINDINGS: Bones: No fractures or dislocations. Ankle mortise is normally aligned. No suspicious bony lesions. The talar dome demonstrates no holly abnormality. Soft tissues: Soft tissue swelling is seen laterally. IMPRESSION: Soft tissue swelling can be seen, without an acute bony abnormality identified by plain film. Dictated by: Bernardino Irving M.D. on 08/30/2022 at 9:51 Approved by: Bernardino Irving M.D. on 08/30/2022 at 9:51
--- NOTE | 2022-08-30 10:20 | DI.RAD.S_ITS ---
PROCEDURE: XR ANKLE LT MIN 3V INDICATIONS: fall with bilateral ankle pain TECHNIQUE: 3 views of the ankle were acquired. COMPARISON: [facility], CR, XR ANKLE RT MIN 3V, 08/30/2022, 10:32. FINDINGS: Bones: There is a comminuted, moderately displaced fracture of the distal fibula seen at the level of the syndesmosis, with mild widening of the ankle mortise. Intra-articular involvement is seen. There is a mildly displaced medial malleolar fracture seen, with intra-articular involvement. On the lateral view, there is believed to be a posterior malleolar fracture, with minimal displacement. There is minimal lucency seen involving the lateral talar dome. Soft tissues: Generalized soft tissue swelling is seen. IMPRESSION: Trimalleolar fracture a. Potential additional osteochondral injury seen involving the lateral talar dome. Dictated by: Bernardino Irving M.D. on 08/30/2022 at 9:51 Approved by: Bernardino Irving M.D. on 08/30/2022 at 9:53
--- NOTE | 2022-08-30 12:27 | DI.CT.S_ITS ---
PROCEDURE: CT CERVICAL SPINE WO CON INDICATIONS: multiple falls, anticoagulated TECHNIQUE: Noncontrast 3 mm thick sections acquired from the skull base to the T4 level. Sagittal and coronal reformats were then constructed. For radiation dose reduction, the following was used: automated exposure control, adjustment of mA and/or kV according to patient size. COMPARISON: [facility], CT, CT CERVICAL SPINE WO CON, 04/09/2020, 10:44. FINDINGS: Image quality: Excellent. Bones: No fractures or dislocations. Visualized superior ribs are intact. Disc space narrowing and hypertrophic facet joints noted in the upper cervical spine. Soft tissues: Prevertebral soft tissues are normal in thickness. No paravertebral hematomas. No apical pneumothoraces. IMPRESSION: Mild degenerative disc disease and arthropathy without fracture or traumatic malalignment Approved by: Joni Rutledge M.D. on 08/30/2022 at 12:30
--- NOTE | 2022-08-30 12:27 | DI.CT.S_ITS ---
PROCEDURE: CT HEAD/BRAIN WO CON INDICATIONS: multiple falls, anticoagulated TECHNIQUE: Noncontrast 4.5 mm thick angled axial sections acquired from the foramen magnum to the vertex, with coronal and sagittal reformats. For radiation dose reduction, the following was used: automated exposure control, adjustment of mA and/or kV according to patient size. COMPARISON: [facility], CT, CT HEAD/BRAIN WO CON, 04/09/2020, 10:44. FINDINGS: Image quality: Excellent. CSF spaces: Basal cisterns are patent. No extra-axial fluid collections. The ventricles are symmetric in size and shape. Brain: No intracranial bleeds or masses. There is cerebral volume loss for age, with resultant ventricular and sulcal prominence. There are periventricular and deep white matter chronic small vessel ischemic changes. There is intracranial internal carotid artery atherosclerosis. Skull and face: Calvarium and visualized facial bones appear intact, without suspicious lesions. Sinuses: Visualized sinuses and mastoids are clear. IMPRESSION: No acute finding. Dictated by: Guille Tyler M.D. on 08/30/2022 at 13:11 Approved by: Guille Tyler M.D. on 08/30/2022 at 13:21
--- NOTE | 2022-08-30 12:29 | DI.RAD.S_ITS ---
PROCEDURE: XR CHEST 1V INDICATIONS: chest pain TECHNIQUE: One view of the chest was acquired. COMPARISON: None. FINDINGS: Surgical changes and devices: None. Lungs and pleura: Lungs are clear. No pleural effusions or pneumothorax. Mediastinum: Mediastinal contours appear normal. Heart size is normal. Bones and chest wall: No suspicious bony lesions. Overlying soft tissues appear unremarkable. IMPRESSION: No acute cardiopulmonary abnormality. Dictated by: Jack Farrar M.D. on 08/30/2022 at 13:04 Approved by: Jack Farrar M.D. on 08/30/2022 at 13:05
[2022-08-30 12:57] LABS: Add Manual Diff / Slide Review NO; Basophils Absolute Auto 0 /uL (0-100); Basophils Percent Auto 0.5 % (0-2); Eosinophils Absolute Auto 100 /uL (0-450); Eosinophils Percent Auto 0.7 % (2-4); Hemoglobin 13.5 g/dL (12.0-16.0); Lymphocytes Absolute Auto 1100 /uL (1100-4500); Lymphocytes Percent Auto 12.5 % (25-40); Mean Corpuscular HGB Conc 33.7 % (30-36); Mean Corpuscular Hemoglobin 30.7 PG (26-34); Mean Corpuscular Volume 91.1 fL (80-100); Monocytes Absolute Auto 500 /uL (0-900); Monocytes Percent Auto 6.3 % (3-14); Neutrophils Absolute Auto 6900 /uL (1500-7000); Platelet Count 235 X10^3/uL (150-400); Red Blood Cell Count 4.39 X10^6/uL (4.0-5.2); Red Cell Distribution Width 13.2 % (11.6-14.8); White Blood Cell Count 8.6 X10^3/uL (4.5-11.0)
[2022-08-30 13:09] LABS: Alanine Aminotransferase 21 IU/L (<35); Albumin Globulin Ratio 1.1 (1.0-2.8); Alkaline Phosphatase 96 U/L (38-126); Aspartate Aminotransferase 31 IU/L (14-36); BUN Creatinine Ratio 14.6 (6-22); Bilirubin Total 0.6 mg/dL (0.2-1.3); Blood Urea Nitrogen 18 mg/dL (7-17); Calcium 8.8 mg/dL (8.4-10.2); Carbon Dioxide 31 mmol/L (22-32); Chloride 99 mmol/L (98-107); Creatine Kinase 145 U/L (30-135); Estimated Glomerular Filt Rate 48 mL/min (>60); Globulin 3.7 g/dL (1.7-4.1); Glucose 190 mg/dL (80-110); HEMOLYSIS < 15 (0-50); Lipase 16 U/L (23-300); Potassium 4.5 mmol/L (3.4-5.1); Sodium 140 mmol/L (137-145); Total Protein 7.7 g/dL (6.3-8.2)
[2022-08-30 13:20] LABS: Troponin I < 0.012 ng/mL (0.01-0.034)
[2022-08-30 13:23] LABS: CKMB % Relative Index 0.6 % (1.5-5.0); Creatine Kinase MB 0.85 ng/mL (<2.37)
--- NOTE | 2022-08-30 13:26 | ED.FALL ---
HPI - Fall <Jj Jesus PA-C - Last Filed: 08/30/22 17:04> General Chief Complaint: Fall Stated Complaint: fell yesterday injured feet and ankles ,blood thi Time Seen by Provider: 08/30/22 12:04 Source: patient Mode of arrival: Wheelchair History of Present Illness HPI Narrative: Patient is a 67-year-old female presents to the emergency room today with complaint falls. Patient states that she fell twice yesterday. Fell once when she went to the bathroom at about 7:00 a.m. and was on the toilet states that she does not remember passing out or remember waking up the side of the toilet. 2nd fall was at about 8:00 p.m. yesterday when she returned her bedroom she was standing at the bed and she fell backwards. Did not lose consciousness when she fell backwards at the tibia. But states when she fell back with a bed that she injured both her feet. States her feet were both turned out worse when she was able to take a look at them. Also states that Friday of last week failed while she was walking in the garage. States 2 weeks before that on Friday she was marked from the grocery store and just became so fatigued and stops walking inside on the grass. Denies any trauma to the head denies shortness of breath fever chills nausea or vomiting. Patient does admit that the week before she started having these balance issues that she has some episodes of dizziness that she went to see her primary care provider about. She states her primary care provider decreased her gabapentin and that helped with her dizziness. She describes the dizziness as room spinning. Has a history of type 1 diabetes is well controlled denies any history of anemia and denies any history of heart disease. Also admits to current history of parkinsonian disease and an essential tremor. No daughter is accompanying patient and is also good historian. Related Data Home Medications Medication Instructions Recorded Confirmed bupropion HCl 150 mg tablet,12 hr 150 mg PO DAILY 08/30/22 08/30/22 sustained-release clopidogrel 75 mg tablet 75 mg PO DAILY 08/30/22 08/30/22 duloxetine 60 mg capsule,delayed 60 mg PO DAILY 08/30/22 08/30/22 release gabapentin 600 mg tablet 600 mg PO DAILY 08/30/22 08/30/22 insulin lispro 100 unit/mL 55 unit SUBCUT DAILY PRN 08/30/22 08/30/22 subcutaneous solution (Humalog Hyperglycemia U-100 Insulin) lisinopril 10 mg tablet 10 mg PO DAILY 08/30/22 08/30/22 metoprolol succinate 100 mg 100 mg PO DAILY 08/30/22 08/30/22 tablet,extended release 24 hr rosuvastatin 20 mg tablet 20 mg PO DAILY 08/30/22 08/30/22 Previous Rx's Medication Instructions Recorded aspirin 81 mg tablet,delayed 81 mg PO BID 6 weeks #84 tabs 09/02/22 release oxycodone 5 mg tablet 5 mg PO Q4HR PRN Pain, Moderate 09/02/22 (4-6) #30 tabs polyethylene glycol 3350 17 gram 17 g PO DAILY PRN constipation #14 09/02/22 oral powder packet (Miralax) ea sennosides 8.6 mg capsule (senna) 8.6 mg PO DAILY #30 caps 09/02/22 Allergies Allergy/AdvReac Type Severity Reaction Status Date / Time morphine AdvReac Mild Hallucinati Verified 08/30/22 18:54 ng codeine AdvReac Verified 08/31/22 08:51 meperidine [From Demerol] AdvReac Verified 08/31/22 08:51 Review of Systems <Jj Jesus PA-C - Last Filed: 08/30/22 17:04> Review of Systems Narrative: R.O.S.: General: No fever, chills or fatigue. Cardiovascular: No chest pain or palpitations Respiratory: No S.O.B. HEENT: No congestion, ear pain, rhinorrhea, sore throat or tinnitus Gastrointestinal: No nausea or vomiting : No urinary concerns Skin: No rash or associated abnormalities Musculoskeletal: No pain in muscles or joints, no limitation of range of motion, no paresthesia or numbness. ?? Neurological: Recent history of dizziness and falls. Patient History <Jj Jesus PA-C - Last Filed: 08/30/22 17:04> Medical History Coronary artery disease No significant medical problems Type 1 diabetes Social History marital status: details: 7 years ago yesterday household members: family and children lives independently: No (Lives with her daughter) Smoking Status: Never smoker alcohol intake: current Smoking Status: Never smoker alcohol intake frequency: holidays/special occasions only Substance Use Type: does not use Exam <Jj Jesus PA-C - Last Filed: 08/30/22 17:04> Narrative Exam Narrative: Physical Exam: ? General: normal appearance, well developed, well nourished, alert, and awake. Not in acute distress. ? Head: Normocephalic, no lesions. Chest: Lungs CTAB, no rales, rhonchi or wheezes. ?? Heart: RRR, no murmurs, rubs or gallops. Eyes: PERRLA, EOM's full, conjunctivae clear. ? Neuro: Physiological, no localizing findings, CN3-12 intact. Gait not totally assessed because patient not able to stand at this time. ? Extremities: Warm, well perfused, FROM, no deformities, no edema. ?? Skin: Normal, no rashes, no lesions noted. ?? PSYCHIATRIC: The mood is good, no blunted affect. Speech is clear. Thought process is linear, thought content is appropriate. The voice is without significant inflection. Gastrointestinal: Soft; NT; ND; Pos BS with Neg. rebound tenderness. No scars or major deformities noted on Visual Inspection. Initial Vital Signs Initial Vital Signs: Vital Signs Temperature 96.2 F L 08/30/22 10:16 Pulse Rate 80 08/30/22 10:16 Respiratory Rate 15 08/30/22 10:16 Blood Pressure 124/62 08/30/22 10:16 Pulse Oximetry 99 08/30/22 10:16 Oxygen Delivery Method 08/30/22 10:16 <Morgan Benavidez MD - Last Filed: 09/02/22 11:16> Initial Vital Signs Initial Vital Signs: Vital Signs Temperature 96.2 F L 08/30/22 10:16 Pulse Rate 80 08/30/22 10:16 Respiratory Rate 15 08/30/22 10:16 Blood Pressure 124/62 08/30/22 10:16 Pulse Oximetry 99 08/30/22 10:16 Oxygen Delivery Method 08/30/22 10:16 Course <Jj Jesus PA-C - Last Filed: 08/30/22 17:04> Orders Ordered: Acetaminophen (Acetaminophen 325 Mg Tablet) 975 mg PO Q8H PRN PRN Reason: Pain, Mild (1-3) Last Admin: 09/02/22 03:11 Dose: 975 mg Documented By: Admin: 09/01/22 14:29 Dose: 975 mg Documented By: Admin: 09/01/22 04:32 Dose: 975 mg Documented By: Admin: 08/31/22 14:50 Dose: 975 mg Documented By: Admin: 08/31/22 05:05 Dose: 975 mg Documented By: Admin: 08/30/22 21:24 Dose: 975 mg Documented By: KAUR Aspirin (Aspirin Ec 81 Mg Tablet) 81 mg PO BID [facility] Last Admin: 09/02/22 08:26 Dose: 81 mg Documented By: Admin: 09/01/22 20:56 Dose: 81 mg Documented By: Admin: 09/01/22 08:25 Dose: 81 mg Documented By: Admin: 08/31/22 21:51 Dose: 81 mg Documented By: KAUR Atorvastatin Calcium (Atorvastatin 20 Mg Tablet) 40 mg PO BEDTIME [facility] Last Admin: 09/01/22 20:56 Dose: 40 mg Documented By: Admin: 08/31/22 21:44 Dose: 40 mg Documented By: Admin: 08/30/22 21:22 Dose: 40 mg Documented By: KAUR Bupropion HCl (Bupropion Sr 150 Mg Tab) 150 mg PO BEDTIME [facility] Last Admin: 09/01/22 21:02 Dose: 150 mg Documented By: Admin: 08/31/22 21:47 Dose: 150 mg Documented By: KAUR Clopidogrel Bisulfate (Clopidogrel 75 Mg Tablet) 75 mg PO BEDTIME [facility] Last Admin: 09/01/22 20:56 Dose: 75 mg Documented By: Admin: 08/31/22 21:46 Dose: 75 mg Documented By: KAUR Diphenhydramine HCl (Diphenhydramine 25 Mg Tablet) 25 mg PO Q6HR PRN PRN Reason: Itching Last Admin: 08/31/22 21:45 Dose: 25 mg Documented By: KAUR Docusate Sodium (Docusate 100 Mg Capsule) 100 mg PO BID [facility] Last Admin: 09/02/22 08:26 Dose: 100 mg Documented By: Admin: 09/01/22 20:56 Dose: 100 mg Documented By: Admin: 09/01/22 08:25 Dose: 100 mg Documented By: Admin: 08/31/22 21:43 Dose: 100 mg Documented By: KAUR Duloxetine HCl (Duloxetine 30 Mg Capsule) 60 mg PO BEDTIME [facility] Last Admin: 09/01/22 20:56 Dose: 60 mg Documented By: Admin: 08/31/22 21:45 Dose: 60 mg Documented By: KAUR Gabapentin (Gabapentin 600 Mg Tablet) 600 mg PO BEDTIME [facility] Last Admin: 09/01/22 20:56 Dose: 600 mg Documented By: Admin: 08/31/22 21:51 Dose: 600 mg Documented By: KAUR Hydromorphone HCl (Hydromorphone 1 Mg Inj) 0.5 mg IV Q1H PRN PRN Reason: Pain, Moderate (4-6) Lactated Ringer's (Lactated Ringers) 1,000 mls @ 125 mls/hr IV CONT [facility] Last Admin: 09/01/22 02:09 Dose: 125 mls/hr Documented By: Infusion: 09/01/22 00:26 Dose: 125 mls/hr Documented By: Admin: 08/31/22 16:26 Dose: 125 mls/hr Documented By: Infusion: 08/31/22 08:42 Dose: 125 mls/hr Documented By: Admin: 08/31/22 00:42 Dose: 125 mls/hr Documented By: KAUR Insulin Glargine (Insulin Glargine 100 Unit/Ml 3ml Pen) 10 unit SUBCUT BEDTIME [facility] Last Admin: 09/01/22 20:50 Dose: 10 unit Documented By: JACQUE Co-signed By: DION Admin: 08/31/22 21:35 Dose: 10 unit Documented By: KAUR Co-signed By: ENID Admin: 08/30/22 21:03 Dose: 10 unit Documented By: KAUR Co-signed By: HUSAM Insulin Human Lispro (Insulin Lispro 100 Unit/Ml 3ml Vial) 0 unit SUBCUT ACHS [facility]; Protocol Last Admin: 09/02/22 08:25 Dose: 5 unit Documented By: DALE Co-signed By: OPAL Admin: 09/01/22 20:49 Dose: 5 unit Documented By: JACQUE Co-signed By: DION Admin: 09/01/22 17:25 Dose: 5 unit Documented By: OPAL Co-signed By: Admin: 09/01/22 12:17 Dose: 3 unit Documented By: OPAL Co-signed By: Admin: 09/01/22 08:26 Dose: 5 unit Documented By: OPAL Co-signed By: Admin: 08/31/22 21:32 Dose: 2 unit Documented By: KAUR Co-signed By: ENID Admin: 08/31/22 16:42 Dose: Not Given Documented By: DONI Lisinopril (Lisinopril 10 Mg Tablet) 10 mg PO DAILY [facility] Last Admin: 09/02/22 08:26 Dose: 10 mg Documented By: Admin: 09/01/22 08:51 Dose: 10 mg Documented By: OPAL Melatonin (Melatonin 3 Mg Tablet) 9 mg PO BEDTIME [facility] Last Admin: 09/01/22 20:56 Dose: 9 mg Documented By: Admin: 08/31/22 21:47 Dose: 9 mg Documented By: Admin: 08/30/22 21:22 Dose: 9 mg Documented By: KAUR Metoprolol Succinate (Metoprolol Er 50 Mg Tablet) 100 mg PO BEDTIME [facility] Last Admin: 09/01/22 20:53 Dose: 100 mg Documented By: Admin: 08/31/22 21:48 Dose: 100 mg Documented By: Admin: 08/30/22 22:20 Dose: 100 mg Documented By: KAUR Naloxone HCl (Naloxone 0.4 Mg/Ml Vial) 0.2 mg IV Q2MIN PRN PRN Reason: Opiate Reversal Ondansetron HCl (Ondansetron 4 Mg/2 Ml Inj) 4 mg IV Q8HR PRN PRN Reason: Nausea And Vomiting Ondansetron HCl (Ondansetron 4 Mg Odt) 4 mg PO Q4HR PRN PRN Reason: Nausea And Vomiting Oxycodone HCl (Oxycodone Ir 5 Mg Tablet) 5 mg PO Q4HR PRN PRN Reason: Pain, Moderate (4-6) Last Admin: 08/31/22 15:04 Dose: 5 mg Documented By: Admin: 08/31/22 05:04 Dose: 5 mg Documented By: KAUR Oxycodone HCl (Oxycodone Ir 10 Mg Tablet) 10 mg PO Q4HR PRN PRN Reason: Pain, Severe (7-10) Last Admin: 08/30/22 21:23 Dose: 10 mg Documented By: KAUR Tramadol HCl (Tramadol 50 Mg Tablet) 50 mg PO TID PRN PRN Reason: Pain, Moderate (4-6) Last Admin: 09/01/22 20:56 Dose: 50 mg Documented By: Admin: 09/01/22 14:29 Dose: 50 mg Documented By: Admin: 09/01/22 04:31 Dose: 50 mg Documented By: KAUR Discontinued Medications Atorvastatin Calcium (Atorvastatin 20 Mg Tablet) 20 mg PO BEDTIME [facility] Bupropion HCl (Bupropion Sr 150 Mg Tab) 150 mg PO DAILY [facility] Last Admin: 08/31/22 14:53 Dose: Not Given Documented By: DONI Clopidogrel Bisulfate (Clopidogrel 75 Mg Tablet) 75 mg PO DAILY [facility] Last Admin: 08/31/22 14:54 Dose: Not Given Documented By: DONI Bupivacaine HCl 30 ml/ (Epinephrine HCl 0.15 mg) 0 ml INJ NOW ONE Stop: 08/31/22 09:52 Last Admin: 08/31/22 09:51 Dose: 30 ml Documented By: CC Dextrose (Dextrose 50 % In Water 25 Gm/50 Ml Syringe) 25 gm IV PRN PRN; Protocol PRN Reason: Hypoglycemia Duloxetine HCl (Duloxetine 30 Mg Capsule) 60 mg PO DAILY [facility] Last Admin: 08/31/22 14:54 Dose: Not Given Documented By: DONI Gabapentin (Gabapentin 600 Mg Tablet) 600 mg PO DAILY [facility] Last Admin: 08/31/22 14:54 Dose: Not Given Documented By: DONI Hydromorphone HCl (Hydromorphone 0.5 Mg Inj) 1 mg IV Q4H PRN PRN Reason: Breakthrough pain only (8-10) Hydromorphone HCl (Hydromorphone 1 Mg Inj) 1 mg IV Q4H PRN PRN Reason: Breakthrough pain only (8-10) Hydromorphone HCl (Hydromorphone 2 Mg Inj) 0 mg IV Q5MIN PRN PRN Reason: Pain, Moderate (4-6) Hydromorphone HCl (Hydromorphone 2 Mg Inj) 0 mg IV Q5M PRN PRN Reason: Pain, Severe (7-10) Hydroxyzine HCl (Hydroxyzine 50 Mg/Ml Inj) 25 mg IM NOW PRN PRN Reason: Pain, Mild (1-3) Hydroxyzine Pamoate (Hydroxyzine Pamoate 25 Mg Capsule) 25 mg PO NOW PRN PRN Reason: Pain, Mild (1-3) Lactated Ringer's (Lactated Ringers) 1,000 mls @ 42 mls/hr IV CONT [facility] Last Infusion: 08/31/22 11:06 Dose: 0 mls/hr Documented By: Admin: 08/31/22 08:53 Dose: 42 mls/hr Documented By: LEXIS Lactated Ringer's (Lactated Ringers) 1,000 mls @ 42 mls/hr IV CONT [facility] Last Admin: 08/31/22 15:41 Dose: Not Given Documented By: DONI Cefazolin Sodium/Dextrose (Ancef) 100 mls @ 200 mls/hr IV NOW ONE Stop: 08/31/22 09:17 Last Admin: 08/31/22 15:42 Dose: Not Given Documented By: DONI Cefazolin Sodium/Dextrose (Ancef) 100 mls @ 200 mls/hr IV NOW ONE Stop: 08/31/22 10:17 Last Infusion: 08/31/22 09:25 Dose: 0 mls/hr Documented By: Admin: 08/31/22 09:00 Dose: 200 mls/hr Documented By: BELEN Cefazolin Sodium/Dextrose (Ancef) 100 mls @ 200 mls/hr IV Q8H [facility] Stop: 09/01/22 01:29 Last Admin: 09/01/22 01:19 Dose: 200 mls/hr Documented By: Infusion: 08/31/22 16:55 Dose: 200 mls/hr Documented By: Admin: 08/31/22 16:25 Dose: 200 mls/hr Documented By: DONI Insulin Glargine (Insulin Glargine 100 Unit/Ml 3ml Pen) 10 unit SUBCUT BEDTIME [facility] Last Admin: 08/31/22 08:15 Dose: Not Given Documented By: DONI Insulin Glargine (Insulin Glargine 100 Unit/Ml 3ml Pen) 10 unit SUBCUT NOW ONE Stop: 09/01/22 15:49 Last Admin: 09/01/22 17:26 Dose: 10 unit Documented By: OPAL Co-signed By: MS Insulin Human Lispro (Insulin Lispro 100 Unit/Ml 3ml Vial) 0 unit SUBCUT Q6H [facility]; Protocol Last Admin: 08/31/22 10:32 Dose: 3 unit Documented By: LEXIS Co-signed By: LISBETH Admin: 08/31/22 08:26 Dose: Not Given Documented By: Admin: 08/31/22 03:25 Dose: 5 unit Documented By: KAUR Co-signed By: ENID Admin: 08/31/22 00:33 Dose: 5 unit Documented By: KAUR Co-signed By: ENID Lisinopril (Lisinopril 10 Mg Tablet) 10 mg PO DAILY [facility] Last Admin: 08/31/22 08:27 Dose: Not Given Documented By: DONI Lisinopril (Lisinopril 10 Mg Tablet) 10 mg PO BEDTIME [facility] Last Admin: 08/31/22 21:51 Dose: Not Given Documented By: KAUR Magnesium Chloride (Magnesium Chloride 64 Mg Tablet) 128 mg PO NOW ONE Stop: 09/01/22 11:50 Last Admin: 09/01/22 12:17 Dose: 128 mg Documented By: OPAL Metoprolol Succinate (Metoprolol Er 50 Mg Tablet) 100 mg PO DAILY [facility] Last Admin: 08/31/22 09:23 Dose: Not Given Documented By: DONI Non-Formulary Medication (Rosuvastatin) 20 mg PO DAILY [facility] Ondansetron HCl (Ondansetron 4 Mg/2 Ml Inj) 4 mg IV NOW PRN PRN Reason: Nausea And Vomiting Oxycodone HCl (Oxycodone Ir 5 Mg Tablet) 5 mg PO [place] PRN PRN Reason: Mild or moderate pain Vital Signs Vital signs: Vital Signs - 8 hr 08/30/22 10:16 08/30/22 12:44 08/30/22 12:45 Temperature 96.2 F L Pulse Rate 80 75 Respiratory Rate 15 Blood Pressure 124/62 163/72 H Pulse Oximetry 99 91 Oxygen Delivery Method Room Air 08/30/22 12:45 08/30/22 13:00 08/30/22 13:30 Temperature Pulse Rate 75 78 75 Respiratory Rate 19 19 16 Blood Pressure Pulse Oximetry 100 100 Oxygen Delivery Method Room Air 08/30/22 14:00 08/30/22 14:30 08/30/22 15:00 Temperature Pulse Rate 75 79 80 Respiratory Rate 17 Blood Pressure Pulse Oximetry 100 99 99 Oxygen Delivery Method 08/30/22 15:30 08/30/22 15:49 08/30/22 15:49 Temperature Pulse Rate 80 84 Respiratory Rate Blood Pressure 171/79 H Pulse Oximetry 98 100 Oxygen Delivery Method <Morgan Benavidez MD - Last Filed: 09/02/22 11:16> Orders Ordered: Acetaminophen (Acetaminophen 325 Mg Tablet) 975 mg PO Q8H PRN PRN Reason: Pain, Mild (1-3) Last Admin: 09/02/22 03:11 Dose: 975 mg Documented By: Admin: 09/01/22 14:29 Dose: 975 mg Documented By: Admin: 09/01/22 04:32 Dose: 975 mg Documented By: Admin: 08/31/22 14:50 Dose: 975 mg Documented By: Admin: 08/31/22 05:05 Dose: 975 mg Documented By: Admin: 08/30/22 21:24 Dose: 975 mg Documented By: KAUR Aspirin (Aspirin Ec 81 Mg Tablet) 81 mg PO BID [facility] Last Admin: 09/02/22 08:26 Dose: 81 mg Documented By: Admin: 09/01/22 20:56 Dose: 81 mg Documented By: Admin: 09/01/22 08:25 Dose: 81 mg Documented By: Admin: 08/31/22 21:51 Dose: 81 mg Documented By: KAUR Atorvastatin Calcium (Atorvastatin 20 Mg Tablet) 40 mg PO BEDTIME [facility] Last Admin: 09/01/22 20:56 Dose: 40 mg Documented By: Admin: 08/31/22 21:44 Dose: 40 mg Documented By: Admin: 08/30/22 21:22 Dose: 40 mg Documented By: KAUR Bupropion HCl (Bupropion Sr 150 Mg Tab) 150 mg PO BEDTIME [facility] Last Admin: 09/01/22 21:02 Dose: 150 mg Documented By: Admin: 08/31/22 21:47 Dose: 150 mg Documented By: KAUR Clopidogrel Bisulfate (Clopidogrel 75 Mg Tablet) 75 mg PO BEDTIME [facility] Last Admin: 09/01/22 20:56 Dose: 75 mg Documented By: Admin: 08/31/22 21:46 Dose: 75 mg Documented By: KAUR Diphenhydramine HCl (Diphenhydramine 25 Mg Tablet) 25 mg PO Q6HR PRN PRN Reason: Itching Last Admin: 08/31/22 21:45 Dose: 25 mg Documented By: KAUR Docusate Sodium (Docusate 100 Mg Capsule) 100 mg PO BID [facility] Last Admin: 09/02/22 08:26 Dose: 100 mg Documented By: Admin: 09/01/22 20:56 Dose: 100 mg Documented By: Admin: 09/01/22 08:25 Dose: 100 mg Documented By: Admin: 08/31/22 21:43 Dose: 100 mg Documented By: KAUR Duloxetine HCl (Duloxetine 30 Mg Capsule) 60 mg PO BEDTIME [facility] Last Admin: 09/01/22 20:56 Dose: 60 mg Documented By: Admin: 08/31/22 21:45 Dose: 60 mg Documented By: KAUR Gabapentin (Gabapentin 600 Mg Tablet) 600 mg PO BEDTIME [facility] Last Admin: 09/01/22 20:56 Dose: 600 mg Documented By: Admin: 08/31/22 21:51 Dose: 600 mg Documented By: KAUR Hydromorphone HCl (Hydromorphone 1 Mg Inj) 0.5 mg IV Q1H PRN PRN Reason: Pain, Moderate (4-6) Lactated Ringer's (Lactated Ringers) 1,000 mls @ 125 mls/hr IV CONT [facility] Last Admin: 09/01/22 02:09 Dose: 125 mls/hr Documented By: Infusion: 09/01/22 00:26 Dose: 125 mls/hr Documented By: Admin: 08/31/22 16:26 Dose: 125 mls/hr Documented By: Infusion: 08/31/22 08:42 Dose: 125 mls/hr Documented By: Admin: 08/31/22 00:42 Dose: 125 mls/hr Documented By: KAUR Insulin Glargine (Insulin Glargine 100 Unit/Ml 3ml Pen) 10 unit SUBCUT BEDTIME [facility] Last Admin: 09/01/22 20:50 Dose: 10 unit Documented By: JACQUE Co-signed By: DION Admin: 08/31/22 21:35 Dose: 10 unit Documented By: KAUR Co-signed By: ENID Admin: 08/30/22 21:03 Dose: 10 unit Documented By: KAUR Co-signed By: HUSAM Insulin Human Lispro (Insulin Lispro 100 Unit/Ml 3ml Vial) 0 unit SUBCUT ACHS [facility]; Protocol Last Admin: 09/02/22 08:25 Dose: 5 unit Documented By: DALE Co-signed By: OPAL Admin: 09/01/22 20:49 Dose: 5 unit Documented By: JACQUE Co-signed By: DION Admin: 09/01/22 17:25 Dose: 5 unit Documented By: OPAL Co-signed By: Admin: 09/01/22 12:17 Dose: 3 unit Documented By: OPAL Co-signed By: Admin: 09/01/22 08:26 Dose: 5 unit Documented By: OPAL Co-signed By: Admin: 08/31/22 21:32 Dose: 2 unit Documented By: KAUR Co-signed By: ENID Admin: 08/31/22 16:42 Dose: Not Given Documented By: DONI Lisinopril (Lisinopril 10 Mg Tablet) 10 mg PO DAILY [facility] Last Admin: 09/02/22 08:26 Dose: 10 mg Documented By: Admin: 09/01/22 08:51 Dose: 10 mg Documented By: OPAL Melatonin (Melatonin 3 Mg Tablet) 9 mg PO BEDTIME [facility] Last Admin: 09/01/22 20:56 Dose: 9 mg Documented By: Admin: 08/31/22 21:47 Dose: 9 mg Documented By: Admin: 08/30/22 21:22 Dose: 9 mg Documented By: KAUR Metoprolol Succinate (Metoprolol Er 50 Mg Tablet) 100 mg PO BEDTIME [facility] Last Admin: 09/01/22 20:53 Dose: 100 mg Documented By: Admin: 08/31/22 21:48 Dose: 100 mg Documented By: Admin: 08/30/22 22:20 Dose: 100 mg Documented By: KAUR Naloxone HCl (Naloxone 0.4 Mg/Ml Vial) 0.2 mg IV Q2MIN PRN PRN Reason: Opiate Reversal Ondansetron HCl (Ondansetron 4 Mg/2 Ml Inj) 4 mg IV Q8HR PRN PRN Reason: Nausea And Vomiting Ondansetron HCl (Ondansetron 4 Mg Odt) 4 mg PO Q4HR PRN PRN Reason: Nausea And Vomiting Oxycodone HCl (Oxycodone Ir 5 Mg Tablet) 5 mg PO Q4HR PRN PRN Reason: Pain, Moderate (4-6) Last Admin: 08/31/22 15:04 Dose: 5 mg Documented By: Admin: 08/31/22 05:04 Dose: 5 mg Documented By: KAUR Oxycodone HCl (Oxycodone Ir 10 Mg Tablet) 10 mg PO Q4HR PRN PRN Reason: Pain, Severe (7-10) Last Admin: 08/30/22 21:23 Dose: 10 mg Documented By: KAUR Tramadol HCl (Tramadol 50 Mg Tablet) 50 mg PO TID PRN PRN Reason: Pain, Moderate (4-6) Last Admin: 09/01/22 20:56 Dose: 50 mg Documented By: Admin: 09/01/22 14:29 Dose: 50 mg Documented By: Admin: 09/01/22 04:31 Dose: 50 mg Documented By: KAUR Discontinued Medications Atorvastatin Calcium (Atorvastatin 20 Mg Tablet) 20 mg PO BEDTIME [facility] Bupropion HCl (Bupropion Sr 150 Mg Tab) 150 mg PO DAILY [facility] Last Admin: 08/31/22 14:53 Dose: Not Given Documented By: DONI Clopidogrel Bisulfate (Clopidogrel 75 Mg Tablet) 75 mg PO DAILY [facility] Last Admin: 08/31/22 14:54 Dose: Not Given Documented By: DONI Bupivacaine HCl 30 ml/ (Epinephrine HCl 0.15 mg) 0 ml INJ NOW ONE Stop: 08/31/22 09:52 Last Admin: 08/31/22 09:51 Dose: 30 ml Documented By: PAOLO Dextrose (Dextrose 50 % In Water 25 Gm/50 Ml Syringe) 25 gm IV PRN PRN; Protocol PRN Reason: Hypoglycemia Duloxetine HCl (Duloxetine 30 Mg Capsule) 60 mg PO DAILY [facility] Last Admin: 08/31/22 14:54 Dose: Not Given Documented By: DONI Gabapentin (Gabapentin 600 Mg Tablet) 600 mg PO DAILY [facility] Last Admin: 08/31/22 14:54 Dose: Not Given Documented By: DONI Hydromorphone HCl (Hydromorphone 0.5 Mg Inj) 1 mg IV Q4H PRN PRN Reason: Breakthrough pain only (8-10) Hydromorphone HCl (Hydromorphone 1 Mg Inj) 1 mg IV Q4H PRN PRN Reason: Breakthrough pain only (8-10) Hydromorphone HCl (Hydromorphone 2 Mg Inj) 0 mg IV Q5MIN PRN PRN Reason: Pain, Moderate (4-6) Hydromorphone HCl (Hydromorphone 2 Mg Inj) 0 mg IV Q5M PRN PRN Reason: Pain, Severe (7-10) Hydroxyzine HCl (Hydroxyzine 50 Mg/Ml Inj) 25 mg IM NOW PRN PRN Reason: Pain, Mild (1-3) Hydroxyzine Pamoate (Hydroxyzine Pamoate 25 Mg Capsule) 25 mg PO NOW PRN PRN Reason: Pain, Mild (1-3) Lactated Ringer's (Lactated Ringers) 1,000 mls @ 42 mls/hr IV CONT [facility] Last Infusion: 08/31/22 11:06 Dose: 0 mls/hr Documented By: Admin: 08/31/22 08:53 Dose: 42 mls/hr Documented By: LEXIS Lactated Ringer's (Lactated Ringers) 1,000 mls @ 42 mls/hr IV CONT [facility] Last Admin: 08/31/22 15:41 Dose: Not Given Documented By: DONI Cefazolin Sodium/Dextrose (Ancef) 100 mls @ 200 mls/hr IV NOW ONE Stop: 08/31/22 09:17 Last Admin: 08/31/22 15:42 Dose: Not Given Documented By: DONI Cefazolin Sodium/Dextrose (Ancef) 100 mls @ 200 mls/hr IV NOW ONE Stop: 08/31/22 10:17 Last Infusion: 08/31/22 09:25 Dose: 0 mls/hr Documented By: Admin: 08/31/22 09:00 Dose: 200 mls/hr Documented By: BELEN Cefazolin Sodium/Dextrose (Ancef) 100 mls @ 200 mls/hr IV Q8H [facility] Stop: 09/01/22 01:29 Last Admin: 09/01/22 01:19 Dose: 200 mls/hr Documented By: Infusion: 08/31/22 16:55 Dose: 200 mls/hr Documented By: Admin: 08/31/22 16:25 Dose: 200 mls/hr Documented By: DONI Insulin Glargine (Insulin Glargine 100 Unit/Ml 3ml Pen) 10 unit SUBCUT BEDTIME [facility] Last Admin: 08/31/22 08:15 Dose: Not Given Documented By: DONI Insulin Glargine (Insulin Glargine 100 Unit/Ml 3ml Pen) 10 unit SUBCUT NOW ONE Stop: 09/01/22 15:49 Last Admin: 09/01/22 17:26 Dose: 10 unit Documented By: OPAL Co-signed By: Insulin Human Lispro (Insulin Lispro 100 Unit/Ml 3ml Vial) 0 unit SUBCUT Q6H [facility]; Protocol Last Admin: 08/31/22 10:32 Dose: 3 unit Documented By: LEXIS Co-signed By: LISBETH Admin: 08/31/22 08:26 Dose: Not Given Documented By: Admin: 08/31/22 03:25 Dose: 5 unit Documented By: KAUR Co-signed By: ENID Admin: 08/31/22 00:33 Dose: 5 unit Documented By: KAUR Co-signed By: ENID Lisinopril (Lisinopril 10 Mg Tablet) 10 mg PO DAILY [facility] Last Admin: 08/31/22 08:27 Dose: Not Given Documented By: DONI Lisinopril (Lisinopril 10 Mg Tablet) 10 mg PO BEDTIME [facility] Last Admin: 08/31/22 21:51 Dose: Not Given Documented By: KAUR Magnesium Chloride (Magnesium Chloride 64 Mg Tablet) 128 mg PO NOW ONE Stop: 09/01/22 11:50 Last Admin: 09/01/22 12:17 Dose: 128 mg Documented By: OPAL Metoprolol Succinate (Metoprolol Er 50 Mg Tablet) 100 mg PO DAILY [facility] Last Admin: 08/31/22 09:23 Dose: Not Given Documented By: DONI Non-Formulary Medication (Rosuvastatin) 20 mg PO DAILY [facility] Ondansetron HCl (Ondansetron 4 Mg/2 Ml Inj) 4 mg IV NOW PRN PRN Reason: Nausea And Vomiting Oxycodone HCl (Oxycodone Ir 5 Mg Tablet) 5 mg PO [place] PRN PRN Reason: Mild or moderate pain Vital Signs Vital signs: Vital Signs - 8 hr 08/30/22 10:16 08/30/22 12:44 08/30/22 12:45 Temperature 96.2 F L Pulse Rate 80 75 Respiratory Rate 15 Blood Pressure 124/62 163/72 H Pulse Oximetry 99 91 Oxygen Delivery Method Room Air 08/30/22 12:45 08/30/22 13:00 08/30/22 13:30 Temperature Pulse Rate 75 78 75 Respiratory Rate 19 19 16 Blood Pressure Pulse Oximetry 100 100 Oxygen Delivery Method Room Air 08/30/22 14:00 08/30/22 14:30 08/30/22 15:00 Temperature Pulse Rate 75 79 80 Respiratory Rate 17 Blood Pressure Pulse Oximetry 100 99 99 Oxygen Delivery Method 08/30/22 15:30 08/30/22 15:49 08/30/22 15:49 Temperature Pulse Rate 80 84 Respiratory Rate Blood Pressure 171/79 H Pulse Oximetry 98 100 Oxygen Delivery Method MDM - Fall <Jj Jesus PA-C - Last Filed: 08/30/22 17:04> Lab Data Result diagrams: 09/02/22 06:11 09/02/22 06:11 Labs: Lab Results 08/30/22 08/30/22 08/30/22 Range/Units 11:00 12:50 12:50 WBC 8.6 (4.5-11.0) X10^3/uL RBC 4.39 (4.0-5.2) X10^6/uL Hgb 13.5 (12.0-16.0) g/dL Hct 40.0 (36-46) % MCV 91.1 (80-100) fL MCH 30.7 (26-34) PG MCHC 33.7 (30-36) % RDW 13.2 (11.6-14.8) % Plt Count 235 (150-400) X10^3/uL Neut % (Auto) 80.0 H (50-75) % Lymph % (Auto) 12.5 L (25-40) % [place] % (Auto) 6.3 (3-14) % Eos % (Auto) 0.7 L (2-4) % Baso % (Auto) 0.5 (0-2) % Neut # (Auto) 6900 (1695-6222) /uL Lymph # (Auto) 1100 (6330-4081) /uL [place] # (Auto) 500 (0-900) /uL Eos # (Auto) 100 (0-450) /uL Baso # (Auto) 0 (0-100) /uL Sodium 140 (137-145) mmol/L Potassium 4.5 (3.4-5.1) mmol/L Chloride 99 (98-107) mmol/L Carbon Dioxide 31 (22-32) mmol/L BUN 18 H (7-17) mg/dL Creatinine 1.23 H (0.52-1.04) mg/dL Estimated GFR 48 L (>60) mL/min BUN/Creatinine Ratio 14.6 (6-22) Glucose 190 H (80-110) mg/dL Calcium 8.8 (8.4-10.2) mg/dL Magnesium 2.0 (1.6-2.3) mg/dL Total Bilirubin 0.6 (0.2-1.3) mg/dL AST 31 (14-36) IU/L ALT 21 (<35) IU/L Alkaline Phosphatase 96 (38-126) U/L Total Creatine Kinase 145 H (30-135) U/L CK-MB (CK-2) 0.85 (<2.37) ng/mL CK-MB (CK-2) Rel Index 0.6 L (1.5-5.0) % Troponin I < 0.012 (0.01-0.034) ng/mL Total Protein 7.7 (6.3-8.2) g/dL Albumin 4.0 (3.5-5.0) g/dL Globulin 3.7 (1.7-4.1) g/dL Albumin/Globulin Ratio 1.1 (1.0-2.8) Lipase 16 L (23-300) U/L SARS-CoV-2 (PCR) Negative (Negative) Imaging Data CT scan - head: Radiologist's Impression: PROCEDURE:? CT HEAD/BRAIN WO CON ? INDICATIONS:? multiple falls, anticoagulated ? TECHNIQUE:? Noncontrast 4.5 mm thick angled axial sections acquired from the foramen magnum to the vertex, with coronal and sagittal reformats.? For radiation dose reduction, the following was used:? automated exposure control, adjustment of mA and/or kV according to patient size.? ? COMPARISON:? [facility], CT, CT HEAD/BRAIN WO CON, 04/09/2020, 10:44. ? FINDINGS:? Image quality:? Excellent.? ? CSF spaces:? Basal cisterns are patent.? No extra-axial fluid collections.? The ventricles are symmetric in size and shape.? ? Brain:? No intracranial bleeds or masses.? There is cerebral volume loss for age, with resultant ventricular and sulcal prominence.? There are periventricular and deep white matter chronic small vessel ischemic changes.? There is intracranial internal carotid artery atherosclerosis.? ? Skull and face:? Calvarium and visualized facial bones appear intact, without suspicious lesions.? ? Sinuses:? Visualized sinuses and mastoids are clear.? ? IMPRESSION:? No acute finding. ? ? Dictated by: Guille Tyler M.D. on 08/30/2022 at 13:11 ? ? Approved by: Guille Tyler M.D. on 08/30/2022 at 13:21 ? Extremity x-ray #1: Radiologist's Impression: PROCEDURE:? XR ANKLE LT MIN 3V ? INDICATIONS:? fall with bilateral ankle pain ? TECHNIQUE:? 3 views of the ankle were acquired.? ? COMPARISON:? [facility], , XR ANKLE RT MIN 3V, 08/30/2022, 10:32. ? FINDINGS:? ? Bones:? There is a comminuted, moderately displaced fracture of the distal fibula seen at the level of the syndesmosis, with mild widening of the ankle mortise.? Intra-articular involvement is seen. ? There is a mildly displaced medial malleolar fracture seen, with intra-articular involvement. ? On the lateral view, there is believed to be a posterior malleolar fracture, with minimal displacement. ? There is minimal lucency seen involving the lateral talar dome. ? Soft tissues:? Generalized soft tissue swelling is seen. ? ? IMPRESSION:? Trimalleolar fracture a. ? Potential additional osteochondral injury seen involving the lateral talar dome. ? Dictated by: Bernardino Irving M.D. on 08/30/2022 at 9:51 ? ? Approved by: Bernardino Irving M.D. on 08/30/2022 at 9:53 ? Extremity x-ray #2: Radiologist's Impression: PROCEDURE:? XR ANKLE RT MIN 3V ? INDICATIONS:? fall with bilateral ankle pain ? TECHNIQUE:? 3 views of the ankle were acquired.? ? COMPARISON:? None. ? FINDINGS:? ? Bones:? No fractures or dislocations.? Ankle mortise is normally aligned.? No suspicious bony lesions.? The talar dome demonstrates no holly abnormality.? ? Soft tissues:? Soft tissue swelling is seen laterally. ? ? IMPRESSION:? Soft tissue swelling can be seen, without an acute bony abnormality identified by plain film. ? ? Dictated by: Bernardino Irving M.D. on 08/30/2022 at 9:51 ? ? Approved by: Bernardino Irving M.D. on 08/30/2022 at 9:51 ? Chest x-ray: Radiologist's Impression: PROCEDURE:? XR CHEST 1V ? INDICATIONS:? chest pain ? TECHNIQUE:? One view of the chest was acquired.? ? COMPARISON:? None. ? FINDINGS:? ? Surgical changes and devices:? None.? ? Lungs and pleura:? Lungs are clear.? No pleural effusions or pneumothorax.? ? Mediastinum:? Mediastinal contours appear normal.? Heart size is normal.? ? Bones and chest wall:? No suspicious bony lesions.? Overlying soft tissues appear unremarkable.? ? IMPRESSION:? No acute cardiopulmonary abnormality. ? ? Dictated by: Jack Farrar M.D. on 08/30/2022 at 13:04 ? ? Approved by: Jack Farrar M.D. on 08/30/2022 at 13:05 ? CT - cervical spine: Radiologist's Impression: PROCEDURE:? CT CERVICAL SPINE WO CON ? INDICATIONS:? multiple falls, anticoagulated ? TECHNIQUE:? Noncontrast 3 mm thick sections acquired from the skull base to the T4 level.? Sagittal and coronal reformats were then constructed.? For radiation dose reduction, the following was used:? automated exposure control, adjustment of mA and/or kV according to patient size.? ? COMPARISON:? [facility], CT, CT CERVICAL SPINE WO CON, 04/09/2020, 10:44. ? FINDINGS:? Image quality:? Excellent.? ? Bones:? No fractures or dislocations.? Visualized superior ribs are intact.? Disc space narrowing and hypertrophic facet joints noted in the upper cervical spine. ? Soft tissues:? Prevertebral soft tissues are normal in thickness.? No paravertebral hematomas.? No apical pneumothoraces.? ? ? IMPRESSION:? ? Mild degenerative disc disease and arthropathy without fracture or traumatic malalignment ? Approved by: Joni Rutledge M.D. on 08/30/2022 at 12:30? ECG Data Interpretation: Normal sinus rhythm with no gross acute signs of left bundle branch block ST segment elevation depression or T-wave morphology MDM Narrative Medical decision making narrative: Patient is a 67-year-old female who presents to the emergency room complaining history of falls syncope an injury to bilateral ankles. Also has a history of parkinsonian symptoms to include an essential tremor. Fell twice yesterday and once on Friday of last week. Also has a history of type 1 diabetes but no history of anemia or heart disease. States that a bottle of dizziness which resulted in a decrease in her gabapentin preceding day week of the start of her recurrent falls. Discussed patient malleolar fracture with Dr. Townsend and she suggests short-leg posterior splint with stirrup. Discussed patient's condition with Dr. Da Silva in regards to admission here. Dr. Torres and states he thinks the patient has orthostatic hypotension. He also thinks that the patient has progression of her parkinsonian like syndrome. He states that this is a neurological issue he does not have another neurologist who can manage. He also states he potentially needs more history that he needs to come down and take from the patient. He lastly stated that he needs to talk to Dr. Townsend because of Dr. Rodriguez is planning to do surgery that he will be okay to admit on that basis. [place] back from Dr. Da Silva and he advised me that he had talked to Dr. Townsend and she plans to do surgery. So he advised me to admit the patient to Internal Medicine under his name. <Morgan Benavidez MD - Last Filed: 09/02/22 11:16> Lab Data Labs: Lab Results 08/30/22 08/30/22 08/30/22 Range/Units 11:00 12:50 12:50 WBC 8.6 (4.5-11.0) X10^3/uL RBC 4.39 (4.0-5.2) X10^6/uL Hgb 13.5 (12.0-16.0) g/dL Hct 40.0 (36-46) % MCV 91.1 (80-100) fL MCH 30.7 (26-34) PG MCHC 33.7 (30-36) % RDW 13.2 (11.6-14.8) % Plt Count 235 (150-400) X10^3/uL Neut % (Auto) 80.0 H (50-75) % Lymph % (Auto) 12.5 L (25-40) % [place] % (Auto) 6.3 (3-14) % Eos % (Auto) 0.7 L (2-4) % Baso % (Auto) 0.5 (0-2) % Neut # (Auto) 6900 (4889-5563) /uL Lymph # (Auto) 1100 (7713-6170) /uL [place] # (Auto) 500 (0-900) /uL Eos # (Auto) 100 (0-450) /uL Baso # (Auto) 0 (0-100) /uL Sodium 140 (137-145) mmol/L Potassium 4.5 (3.4-5.1) mmol/L Chloride 99 (98-107) mmol/L Carbon Dioxide 31 (22-32) mmol/L BUN 18 H (7-17) mg/dL Creatinine 1.23 H (0.52-1.04) mg/dL Estimated GFR 48 L (>60) mL/min BUN/Creatinine Ratio 14.6 (6-22) Glucose 190 H (80-110) mg/dL Calcium 8.8 (8.4-10.2) mg/dL Magnesium 2.0 (1.6-2.3) mg/dL Total Bilirubin 0.6 (0.2-1.3) mg/dL AST 31 (14-36) IU/L ALT 21 (<35) IU/L Alkaline Phosphatase 96 (38-126) U/L Total Creatine Kinase 145 H (30-135) U/L CK-MB (CK-2) 0.85 (<2.37) ng/mL CK-MB (CK-2) Rel Index 0.6 L (1.5-5.0) % Troponin I < 0.012 (0.01-0.034) ng/mL Total Protein 7.7 (6.3-8.2) g/dL Albumin 4.0 (3.5-5.0) g/dL Globulin 3.7 (1.7-4.1) g/dL Albumin/Globulin Ratio 1.1 (1.0-2.8) Lipase 16 L (23-300) U/L SARS-CoV-2 (PCR) Negative (Negative) Discharge Plan Departure Patient Disposition: Admitted As Inpatient Clinical Impression: Fall Closed trimalleolar fracture Qualifiers: Encounter type: initial encounter Laterality: left Qualified Code(s): S82.852A - Displaced trimalleolar fracture of left lower leg, initial encounter for closed fracture Admit Date/Time: 08/30/22 17:03 Admit Provider: Angelito Da Silva <Morgan Benavidez MD - Last Filed: 09/02/22 11:16> Cosign ED Attending Cosignature Attestation: I was immediately available in the department for consultation. This documentation has been reviewed and I agree with assessment and plan. Supervised by Morgan Benavidez MD
[2022-08-30 17:38] LABS: COVID19 -Nasal RAPID Negative (Negative)
--- NOTE | 2022-08-30 20:47 | PM.HP.1 ---
History of Present Illness History of Present Illness Date Patient Seen: 08/30/22 Time Patient Seen: 20:47 Date of Onset of Symptoms: 08/29/22 Chief complaint: fell yesterday injured feet and ankles ,blood thi Narrative: This is a very pleasant 67-year-old female who is followed by Dr. Karis Orozco. Patient has a history of type 1 diabetes with insulin pump, coronary artery disease, peripheral vascular disease, hyperlipidemia, depression, anxiety. Patient presents emergency department this morning due to ankle pain. Apparently she awakened yesterday morning at 7:00 a.m. and went to the bathroom and the next thing she knew she would fallen on the bathroom floor and felt very tired and lethargic. She would difficulty getting up but she forced herself to get up and then she started getting dressed when she suddenly started falling backwards and could not stop herself and hurt both of her ankles. She was unable to get up on her own and then presented to the ER for evaluation. She was found to have a trimalleolar fracture of her left ankle. Orthopedics was consulted and they plan to do surgery on her in the morning. She is also having right ankle pain which she states she injured as well. The patient has been in her usual state of health until several weeks ago she began having increase in falls. She states that she just will feel like her legs can not hold her up and she will start falling backwards and she can not stop herself. She then has difficulty getting up. She is had approximately 3 episodes in the last 2-3 weeks where she is been walking and she just follows sudden feels very weak and she falls to the ground or she sits down. She was walking to the store recently and was unable to get up and had to call her daughter. She saw her primary care provider who decreased her gabapentin and this helped with the dizziness but not with the weakness. She states it does not feel like low blood sugar. Past medical history: 1. Type 1 diabetes since age 10, currently on an insulin pump. Previously was managed by [facility] endocrinology. Currently in between doctors there. 2. Coronary artery disease status post acute myocardial infarction x2. Her last 1 was in 2011 where she had a stent placed by her email manager in [place]. 3. Peripheral vascular disease. Patient has had a stent placed in her left groin. She is unclear of the artery was placed in but sounds like femoral artery 4. Hyperlipidemia 5. Hypertension 6. Depression 7. Anxiety 8. Peripheral neuropathy secondary to type 1 diabetes 9. Chronic kidney disease due to type 1 diabetes Allergies no known drug allergies listed Past surgical history: Unremarkable Health related behavior: No alcohol no tobacco no illicit drugs. Patient does some walking. Social history: Patient lives in [place] with her daughter and family. Her also had type 1 diabetes and he 7 years ago today. Patient had 2 daughters and 1 son. Family history: No family history of diabetes. Patient's dad a week and a half ago from dementia at age 89. Her mom is 85 and alive and reportedly healthy 12 point review of systems Negative for any fevers chills or respiratory illness Negative for any abdominal pain. No change in bowel movements. No blood in stool no bright red blood per rectum or black tarry stools No vision changes or headaches No shortness of breath or palpitations or lightheadedness No neck pain or back pain Otherwise review of systems negative Patient History Medical History Coronary artery disease No significant medical problems Family & Social History Social History: household members family,children Prior Living Arrangements House Safety & Behavioral: Feels Safe in Current Yes Environment Been Physically Hurt or No Threatened By a Person Tobacco & Substance use: Smoking Status Never smoker alcohol intake current alcohol intake frequency holiday/special occasion Substance Use Type does not use Meds Home Medications and Allergies Home Medications Medication Instructions Recorded Confirmed Type bupropion HCl 150 mg tablet,12 hr 150 mg PO DAILY 08/30/22 08/30/22 History sustained-release clopidogrel 75 mg tablet 75 mg PO DAILY 08/30/22 08/30/22 History duloxetine 60 mg capsule,delayed 60 mg PO DAILY 08/30/22 08/30/22 History release gabapentin 600 mg tablet 600 mg PO DAILY 08/30/22 08/30/22 History insulin lispro 100 unit/mL 55 unit SUBCUT DAILY PRN 08/30/22 08/30/22 History subcutaneous solution (Humalog Hyperglycemia U-100 Insulin) lisinopril 10 mg tablet 10 mg PO DAILY 08/30/22 08/30/22 History metoprolol succinate 100 mg 100 mg PO DAILY 08/30/22 08/30/22 History tablet,extended release 24 hr rosuvastatin 20 mg tablet 20 mg PO DAILY 08/30/22 08/30/22 History Allergies Allergy/AdvReac Type Severity Reaction Status Date / Time morphine AdvReac Mild Hallucinati Verified 08/30/22 18:54 ng Exam Vital Signs (past 8 hours): - 08/30/22 13:00 08/30/22 13:30 08/30/22 14:00 Temperature Pulse Rate 78 75 75 Respiratory Rate 19 16 17 Blood Pressure Pulse Oximetry 100 100 100 Oxygen Delivery Method Room Air 08/30/22 14:30 08/30/22 15:00 08/30/22 15:30 Temperature Pulse Rate 79 80 80 Respiratory Rate Blood Pressure Pulse Oximetry 99 99 98 Oxygen Delivery Method 08/30/22 15:49 08/30/22 15:49 08/30/22 16:00 Temperature Pulse Rate 84 Respiratory Rate Blood Pressure 171/79 H 168/76 H Pulse Oximetry 100 Oxygen Delivery Method 08/30/22 16:00 08/30/22 16:30 08/30/22 16:31 Temperature Pulse Rate 81 81 81 Respiratory Rate 14 Blood Pressure Pulse Oximetry 100 98 99 Oxygen Delivery Method 08/30/22 16:31 08/30/22 18:30 08/30/22 20:35 Temperature 98.7 F Pulse Rate 84 Respiratory Rate 18 Blood Pressure 171/71 H 157/71 H Pulse Oximetry 100 97 Oxygen Delivery Method Room Air Oxygen Delivery Method Room Air Narrative Exam Narrative: Afebrile, vital signs are stable. Blood pressure 150s to 170s. Patient is alert and oriented x3 HEENT: Unremarkable, neck is supple without adenopathy or bruit or jugular venous distention. No tenderness of her head or neck Chest: Clear to auscultation without wheezes rhonchi or crackles Cor: Regular rate and rhythm without a murmur, distant S1-S2 Abdomen: Positive bowel sounds, soft, nontender, nondistended Extremities: Left ankle is in a posterior splint. Digits are warm with normal capillary refill time. Right ankle is very tender to palpation but no swelling. She has some erythema and warmth laterally. Neurologic exam shows normal proprioception. Strength is intact bilateral lower extremities without focal neurologic abnormality Objective Labs Result Diagrams: 08/30/22 12:50 08/30/22 12:50 Labs: Laboratory Results - last 24 hr 08/30/22 08/30/2222 11:00 12:50 12:50 WBC 8.6 RBC 4.39 Hgb 13.5 Hct 40.0 MCV 91.1 MCH 30.7 MCHC 33.7 RDW 13.2 Plt Count 235 Neut % (Auto) 80.0 H Lymph % (Auto) 12.5 L [place] % (Auto) 6.3 Eos % (Auto) 0.7 L Baso % (Auto) 0.5 Neut # (Auto) 6900 Lymph # (Auto) 1100 [place] # (Auto) 500 Eos # (Auto) 100 Baso # (Auto) 0 Sodium 140 Potassium 4.5 Chloride 99 Carbon Dioxide 31 BUN 18 H Creatinine 1.23 H Estimated GFR 48 L BUN/Creatinine Ratio 14.6 Glucose 190 H Calcium 8.8 Magnesium 2.0 Total Bilirubin 0.6 AST 31 ALT 21 Alkaline Phosphatase 96 Total Creatine Kinase 145 H CK-MB (CK-2) 0.85 CK-MB (CK-2) Rel Index 0.6 L Troponin I < 0.012 Total Protein 7.7 Albumin 4.0 Globulin 3.7 Albumin/Globulin Ratio 1.1 Lipase 16 L SARS-CoV-2 (PCR) Negative Assessment & Plan Assessment & Plan narrative: 67-year-old female with type 1 diabetes who sustained a fall and a left ankle trimalleolar fracture Assessment 1. Trimalleolar fracture which required surgical fixation Plan: Patient will be admitted to the hospital and will be NPO after midnight with plan for surgery in a.m.. At this time there is no medical contraindication for proceeding with surgery. Assessment 2. Frequent falls with what sounds like syncopal episode but possible underlying neurologic disease and some components of vertigo. Suspect symptoms are multifactorial with no obvious etiology at this time Plan: Will admit to the hospital for further monitoring and evaluation. Patient will be placed on telemetry. We will do echo. Patient will likely need imaging of her head and neck rule out evidence of peripheral vascular disease as well as any intracranial abnormalities. Will consult PT Assessment 3. Right ankle pain possibly related to trauma though it is warm Plan: We will do uric acid in the morning. Will continue to monitor and further imaging if indicated Assessment 4. Type 1 diabetes on insulin pump Plan: Per hospital protocol this must be stopped. We will give her 10 units of Lantus and provide sliding scale insulin. She will be NPO after midnight. We will provide IV fluids at that time. We will check sugars every 6 hours. Assessment 5. Hypertension currently elevated Plan: Will start her metoprolol and lisinopril that she is on as an outpatient. Assessment 6. Peripheral neuropathy Plan: Will continue outpatient gabapentin. Assessment 7. History of coronary artery disease without any acute symptoms Plan: Will proceed with above workup. Patient will likely need to establish with Cardiology as an outpatient. She is not seen a email manager here locally. It does not sound like her falls are related to ischemic heart disease. Assessment 8. Peripheral vascular disease with stenting currently on Plavix Plan will continue Assessment 9. Depression anxiety Plan: Continue outpatient Wellbutrin and duloxetine Code status discussion was performed and patient is very clear with previous POLST form filled out but not available in our record. Patient is a do not resuscitate. Time Spent With Patient Critical Care time: I spent a total of [] minutes of critical care time on this patient's care today; this time is exclusive of procedural time. Quality VTE Deep Vein Thrombosis/Pulmonary Embolism Present on Admission: No
[2022-08-30] MEDS: INSULIN GLARGINE 100 UNIT/ML 3ML PEN 10 UNIT SUBCUT (21:03)
[2022-08-30] MEDS: ATORVASTATIN 20 MG TABLET 40 MG PO (21:22)
[2022-08-30] MEDS: MELATONIN 3 MG TABLET 9 MG PO (21:22)
[2022-08-30] MEDS: OXYCODONE IR 10 MG TABLET PO (21:23)
[2022-08-30] MEDS: ACETAMINOPHEN 325 MG TABLET 975 MG PO (21:24)
[2022-08-30] MEDS: METOPROLOL ER 50 MG TABLET 100 MG PO (22:20)
[2022-08-31] VITALS (20 sets, daily range): BP systolic 125–153; BP diastolic 49–91; PULSE 65–91; RESP 11–169; TEMP 35.7–37; O2SAT 94–100; BMI 31.9
--- NOTE | 2022-08-31 | DI.RAD.S_ITS ---
PROCEDURE: XR ANKLE LT 2V INDICATIONS: LT ANKLE SURGERY TECHNIQUE: 3 views of the ankle were acquired. COMPARISON: [facility], CR, XR ANKLE RT MIN 3V, 08/30/2022, 10:32. FINDINGS: Three low resolution intraoperative fluoroscopic spot films were obtained shows fibular intramedullary madiha, syndesmotic screw and medial malleolar screw in good position. IMPRESSION: 1. Fluoroscopic guidance Approved by: Joni Rutledge M.D. on 08/31/2022 at 12:05
[2022-08-31] MEDS: INSULIN LISPRO 100 UNIT/ML 3ML VIAL SUBCUT ×4 (00:33→21:32)
[2022-08-31] MEDS: LACTATED RINGERS 1,000 ML 125 ML IV ×2 (00:42→16:26)
[2022-08-31] MEDS: OXYCODONE IR 5 MG TABLET PO ×2 (05:04→15:04)
[2022-08-31] MEDS: ACETAMINOPHEN 325 MG TABLET 975 MG PO ×2 (05:05→14:50)
[2022-08-31 05:21] LABS: Add Manual Diff / Slide Review NO; Basophils Absolute Auto 0 /uL (0-100); Basophils Percent Auto 0.6 % (0-2); Eosinophils Absolute Auto 100 /uL (0-450); Eosinophils Percent Auto 1.3 % (2-4); Hematocrit 34.8 % (36-46); Hemoglobin 12.4 g/dL (12.0-16.0); Lymphocytes Absolute Auto 1300 /uL (1100-4500); Lymphocytes Percent Auto 20.4 % (25-40); Mean Corpuscular HGB Conc 35.6 % (30-36); Mean Corpuscular Hemoglobin 33.5 PG (26-34); Mean Corpuscular Volume 94.1 fL (80-100); Monocytes Absolute Auto 500 /uL (0-900); Monocytes Percent Auto 8.2 % (3-14); Neutrophils Absolute Auto 4300 /uL (1500-7000); Neutrophils Percent Auto 69.5 % (50-75); Platelet Count 192 X10^3/uL (150-400); White Blood Cell Count 6.2 X10^3/uL (4.5-11.0)
[2022-08-31 05:25] LABS: Alanine Aminotransferase 18 IU/L (<35); Albumin 3.4 g/dL (3.5-5.0); Albumin Globulin Ratio 1.1 (1.0-2.8); Alkaline Phosphatase 73 U/L (38-126); Aspartate Aminotransferase 23 IU/L (14-36); BUN Creatinine Ratio 14.2 (6-22); Bilirubin Total 0.6 mg/dL (0.2-1.3); Blood Urea Nitrogen 17 mg/dL (7-17); Calcium 8.4 mg/dL (8.4-10.2); Carbon Dioxide 31 mmol/L (22-32); Chloride 101 mmol/L (98-107); Estimated Glomerular Filt Rate 50 mL/min (>60); Globulin 3.1 g/dL (1.7-4.1); Glucose 210 mg/dL (80-110); HEMOLYSIS < 15 (0-50); Magnesium 1.9 mg/dL (1.6-2.3); Potassium 3.9 mmol/L (3.4-5.1); Sodium 138 mmol/L (137-145); Total Protein 6.5 g/dL (6.3-8.2)
[2022-08-31 05:31] LABS: Uric Acid 4.8 mg/dL (2.5-6.2)
--- NOTE | 2022-08-31 05:37 | P.PN_ITS ---
Subjective Subjective Date Patient Seen: 08/31/22 Interval history: 67-year-old female with type 1 diabetes with insulin pump, coronary artery disease, peripheral vascular disease, hyperlipidemia, depression, anxiety admitted last night w/a right trimalleolar fx after a fall. Patient underwent operative repair of her ankle fracture earlier today. She denies any pain. She does states she still has difficulty bearing weight on her right leg. She denies any nausea or abdominal pain. With regard to her falls over the last several weeks, she states 2 of them occurred and it seemed as though her legs gave out on her. One occurred while she was on the toilet having a bowel movement. She reports she did not have any warning about the falls. Several weeks ago she did have what sounds like vertiginous symptoms but those had resolved before she began having falls. Exam Vital Signs (past 8 hours): - 08/30/22 22:20 08/31/22 00:54 08/31/22 03:22 Temperature 96.7 F L 96.8 F L Pulse Rate 88 91 H 82 Respiratory Rate 16 18 Blood Pressure 151/63 H 125/51 L 126/61 Pulse Oximetry 94 96 Oxygen Delivery Method Oxygen Flow Rate 08/31/22 00:00 08/31/22 04:00 Temperature Pulse Rate Respiratory Rate Blood Pressure Pulse Oximetry 96 96 Oxygen Delivery Method Room Air Room Air Oxygen Flow Rate 0 Oxygen Delivery Method Room Air Oxygen Flow Rate 0 Narrative Exam Narrative: GEN: Pleasant middle-aged female, mildly diaphoretic, Alert and oriented x 3, NAD HEENT:NC, Face symmetric CHEST: Respiratory excursions symmetric, CTAB CV: RRR, no M/R/G ABD: Soft, NT/ND, BT present in all 4 quadrants, body habitus limits exam EXTR: warm, well perfused, no C/C/E, left lower extremity in postoperative cast SKIN: warm and dry, no rash NEURO: Alert and oriented x 3, nonfocal Objective Labs Result Diagrams: 08/31/22 05:00 08/31/22 05:00 Labs: Laboratory Results - last 24 hr 08/30/22 08/30/22 08/30/22 11:00 12:50 12:50 WBC 8.6 RBC 4.39 Hgb 13.5 Hct 40.0 MCV 91.1 MCH 30.7 MCHC 33.7 RDW 13.2 Plt Count 235 Neut % (Auto) 80.0 H Lymph % (Auto) 12.5 L [place] % (Auto) 6.3 Eos % (Auto) 0.7 L Baso % (Auto) 0.5 Neut # (Auto) 6900 Lymph # (Auto) 1100 [place] # (Auto) 500 Eos # (Auto) 100 Baso # (Auto) 0 Sodium 140 Potassium 4.5 Chloride 99 Carbon Dioxide 31 BUN 18 H Creatinine 1.23 H Estimated GFR 48 L BUN/Creatinine Ratio 14.6 Glucose 190 H Uric Acid Calcium 8.8 Magnesium 2.0 Total Bilirubin 0.6 AST 31 ALT 21 Alkaline Phosphatase 96 Total Creatine Kinase 145 H CK-MB (CK-2) 0.85 CK-MB (CK-2) Rel Index 0.6 L Troponin I < 0.012 Total Protein 7.7 Albumin 4.0 Globulin 3.7 Albumin/Globulin Ratio 1.1 Lipase 16 L SARS-CoV-2 (PCR) Negative 08/31/22 08/31/22 08/31/22 05:00 05:00 05:00 WBC 6.2 RBC 3.70 L Hgb 12.4 Hct 34.8 L MCV 94.1 D MCH 33.5 MCHC 35.6 RDW 13.0 Plt Count 192 Neut % (Auto) 69.5 Lymph % (Auto) 20.4 L [place] % (Auto) 8.2 Eos % (Auto) 1.3 L Baso % (Auto) 0.6 Neut # (Auto) 4300 Lymph # (Auto) 1300 [place] # (Auto) 500 Eos # (Auto) 100 Baso # (Auto) 0 Sodium 138 Potassium 3.9 Chloride 101 Carbon Dioxide 31 BUN 17 Creatinine 1.20 H Estimated GFR 50 L BUN/Creatinine Ratio 14.2 Glucose 210 H Uric Acid 4.8 Calcium 8.4 Magnesium 1.9 Total Bilirubin 0.6 AST 23 ALT 18 Alkaline Phosphatase 73 Total Creatine Kinase CK-MB (CK-2) CK-MB (CK-2) Rel Index Troponin I Total Protein 6.5 Albumin 3.4 L Globulin 3.1 Albumin/Globulin Ratio 1.1 Lipase SARS-CoV-2 (PCR) [facility] Medical History (Updated 08/31/22 @ 08:03 by Pattie Delcid MD) Coronary artery disease No significant medical problems Type 1 diabetes Social History marital status: details: 7 years ago yesterday household members: family and children lives independently: No (Lives with her daughter) Smoking Status: Never smoker alcohol intake: current Assessment & Plan Assessment & Plan narrative: 1. Right Trimalleolar fracture which required surgical fixation Patient is now postoperative day 0 from ORIF. 2.? Frequent falls with possible syncopal episodes Suspect symptoms are multifactorial with no obvious etiology at this time Head CT was negative on admission. Echocardiogram has been ordered and is pending. Await PT evaluation. Will also obtain carotid ultrasound. TSH will be done as well for completeness. One of the falls sounds as though it was vasovagal when she was on the toilet. The other 2 are more difficult to determine. She had no warning prior to those falls and describes it as feeling as though her legs became weak and gave out. 3. JEN Baseline creatinine appears to be between 0.99 and 1.04. On admission, creatinine was 1.23. Today it is 1.2. Will monitor. 4.? Type 1 diabetes on insulin pump Blood sugars have ranged from 146-292. She has continued her insulin pump at a basal rate of 1.1 unit/hour. It is unclear why her pump was not discontinued. She is on Lantus 10 units daily. If the pump is discontinued, that will likely need to be increased. 5.? Hypertension currently elevated She has been moderately hypertensive since admission, likely in part secondary to pain. Her usual metoprolol and lisinopril have been ordered, but have not yet been given. 6. 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 Peripheral vascular disease status post stenting Continue Plavix and atorvastatin 9. Depression/anxiety Continue bupropion and duloxetine Code status DNR Prophylaxis Initiated on aspirin b.i.d. per Orthopedic surgery Disposition Await evaluation of her mobility for further recommendations Time Spent With Patient Critical Care time: I spent a total of [] minutes of critical care time on this patient's care today; this time is exclusive of procedural time. Quality VTE Deep Vein Thrombosis/Pulmonary Embolism Present on Admission: No
--- NOTE | 2022-08-31 07:35 | PM.CN ---
History of Present Illness Consult details Date Patient Seen: 08/31/22 Time Patient Seen: 07:36 Chief complaint: fell yesterday injured feet and ankles ,blood thi Reason for consult: left ankle fracture Requesting provider: Jj Jesus Narrative: Patient is a 67-year-old female presents after a fall there is a August 29 where she sustained injuries to bilateral ankles. This was a possible syncopal episode. She has comorbidities of type 1 diabetes using an insulin pump, coronary artery disease, peripheral vascular disease, hyperlipidemia, neuropathy on gabapentin, depression and anxiety. She was found to have a trimalleolar ankle fracture on x-rays in the emergency room. Due to her multiple comorbidities and fracture requiring surgical stabilization she was admitted to the hospital to the Internal Medicine service for optimization. With orthopedic surgery was consulted regarding her operative left ankle fracture. It is anticipated she may need [facility] due to this injury difficulty with mobilization and comorbidities. Yesterday was the 7th anniversary of her 's . He also had type 1 diabetes. She lives in [place] with daughter. States after she fell she was able to get up and get dressed and they were going to her father's but she was barely able to get out to the car. She endorses some neuropathy up to the ankle level but states it is not too bad and she is still able to feel any rock she steps on Meds Home Medications and Allergies Home Medications Medication Instructions Recorded Confirmed Type bupropion HCl 150 mg tablet,12 hr 150 mg PO DAILY 08/30/22 08/30/22 History sustained-release clopidogrel 75 mg tablet 75 mg PO DAILY 08/30/22 08/30/22 History duloxetine 60 mg capsule,delayed 60 mg PO DAILY 08/30/22 08/30/22 History release gabapentin 600 mg tablet 600 mg PO DAILY 08/30/22 08/30/22 History insulin lispro 100 unit/mL 55 unit SUBCUT DAILY PRN 08/30/22 08/30/22 History subcutaneous solution (Humalog Hyperglycemia U-100 Insulin) lisinopril 10 mg tablet 10 mg PO DAILY 08/30/22 08/30/22 History metoprolol succinate 100 mg 100 mg PO DAILY 08/30/22 08/30/22 History tablet,extended release 24 hr rosuvastatin 20 mg tablet 20 mg PO DAILY 08/30/22 08/30/22 History Allergies Allergy/AdvReac Type Severity Reaction Status Date / Time morphine AdvReac Mild Hallucinati Verified 08/30/22 18:54 ng Review of Systems Review of Systems Narrative: Remarkable for type 1 diabetes, neuropathy, weakness, dizziness instability and recent falls. Also positive for joint pain left ankle. Joint pain yesterday in the right ankle. Otherwise denies fevers chills nausea or vomiting. Denies chest pain or shortness of breath Exam Vital Signs (past 8 hours): - 08/31/22 00:54 08/31/22 03:22 08/31/22 00:00 Temperature 96.7 F L 96.8 F L Pulse Rate 91 H 82 Respiratory Rate 16 18 Blood Pressure 125/51 L 126/61 Pulse Oximetry 94 96 96 Oxygen Delivery Method Room Air Oxygen Flow Rate 08/31/22 04:00 Temperature Pulse Rate Respiratory Rate Blood Pressure Pulse Oximetry 96 Oxygen Delivery Method Room Air Oxygen Flow Rate 0 Oxygen Delivery Method Room Air Oxygen Flow Rate 0 Narrative Exam Narrative: General exam is alert oriented no acute distress HEENT exam normocephalic atraumatic Respiratory exam unlabored on room air. Lungs clear to auscultation bilaterally CV exam regular rate and rhythm Abdomen is soft Musculoskeletal exam. Moves both upper extremities full range of motion without pain Left lower extremity is in a splint. Toes have brisk capillary refill. Sensation grossly intact to light touch. Knee nonswollen and nontender. Thigh soft. Calf is soft. Remainder of motor sensory exam the ankle deferred due to known closed trimalleolar ankle fracture and splint Right lower extremity evaluation. No swelling or ecchymosis. No tenderness to palpation medial or lateral malleoli. No pain the metatarsal base. Negative midfoot squeeze. Demonstrates dorsiflexion plantar flexion of the ankle. Calf is soft thigh soft. Knee is nontender. Demonstrates toe flexion and extension. Palpable dorsalis pedis pulse. Brisk capillary refill. Sensation grossly intact. Objective Imaging xr l ankle: My impression: Ankle trimalleolar fracture. Mild displacement. Medial malleolar fracture. Small posterior malleolar fracture. Mildly displaced lateral malleolus fracture at the level of the syndesmosis Radiologist's impression: IMPRESSION: Trimalleolar fracture a. Potential additional osteochondral injury seen involving the lateral talar dome. Dictated by: Bernardino Irving M.D. on 08/30/2022 at 9:51 X-ray right ankle: My impression: Right ankle AP mortise and lateral demonstrates no bony malalignment. Mortise is symmetric. Mild lateral soft tissue swelling Radiologist's impression: IMPRESSION: Soft tissue swelling can be seen, without an acute bony abnormality identified by plain film. Dictated by: Bernardino Irving M.D. on 08/30/2022 at 9:51 Labs Result Diagrams: 08/31/22 05:00 08/31/22 05:00 Labs: Laboratory Results - last 24 hr 08/30/22 08/30/22 08/30/22 11:00 12:50 12:50 WBC 8.6 RBC 4.39 Hgb 13.5 Hct 40.0 MCV 91.1 MCH 30.7 MCHC 33.7 RDW 13.2 Plt Count 235 Neut % (Auto) 80.0 H Lymph % (Auto) 12.5 L [place] % (Auto) 6.3 Eos % (Auto) 0.7 L Baso % (Auto) 0.5 Neut # (Auto) 6900 Lymph # (Auto) 1100 [place] # (Auto) 500 Eos # (Auto) 100 Baso # (Auto) 0 Sodium 140 Potassium 4.5 Chloride 99 Carbon Dioxide 31 BUN 18 H Creatinine 1.23 H Estimated GFR 48 L BUN/Creatinine Ratio 14.6 Glucose 190 H Uric Acid Calcium 8.8 Magnesium 2.0 Total Bilirubin 0.6 AST 31 ALT 21 Alkaline Phosphatase 96 Total Creatine Kinase 145 H CK-MB (CK-2) 0.85 CK-MB (CK-2) Rel Index 0.6 L Troponin I < 0.012 Total Protein 7.7 Albumin 4.0 Globulin 3.7 Albumin/Globulin Ratio 1.1 Lipase 16 L SARS-CoV-2 (PCR) Negative 08/31/22 08/31/22 08/31/22 05:00 05:00 05:00 WBC 6.2 RBC 3.70 L Hgb 12.4 Hct 34.8 L MCV 94.1 D MCH 33.5 MCHC 35.6 RDW 13.0 Plt Count 192 Neut % (Auto) 69.5 Lymph % (Auto) 20.4 L [place] % (Auto) 8.2 Eos % (Auto) 1.3 L Baso % (Auto) 0.6 Neut # (Auto) 4300 Lymph # (Auto) 1300 [place] # (Auto) 500 Eos # (Auto) 100 Baso # (Auto) 0 Sodium 138 Potassium 3.9 Chloride 101 Carbon Dioxide 31 BUN 17 Creatinine 1.20 H Estimated GFR 50 L BUN/Creatinine Ratio 14.2 Glucose 210 H Uric Acid 4.8 Calcium 8.4 Magnesium 1.9 Total Bilirubin 0.6 AST 23 ALT 18 Alkaline Phosphatase 73 Total Creatine Kinase CK-MB (CK-2) CK-MB (CK-2) Rel Index Troponin I Total Protein 6.5 Albumin 3.4 L Globulin 3.1 Albumin/Globulin Ratio 1.1 Lipase SARS-CoV-2 (PCR) [facility] Medical History (Updated 08/31/22 @ 08:03 by Pattie Delcid MD) Coronary artery disease No significant medical problems Type 1 diabetes Comment: Notes nausea after anesthesia Social History marital status: details: 7 years ago yesterday household members: family and children lives independently: No (Lives with her daughter) Tobacco & Substance Use Smoking Status: Never smoker alcohol intake: current Assessment & Plan Assessment and plan (1) Closed trimalleolar fracture: Qualifiers: Encounter type: initial encounter Laterality: left Qualified Code(s): S82.852A - Displaced trimalleolar fracture of left lower leg, initial encounter for closed fracture Status: Acute Plan Patient is a mildly displaced trimalleolar left ankle fracture. Trimalleolar ankle fractures are unstable ankle fracture. This is indicated for operative fixation to restore anatomic alignment reduce the risk of posttraumatic arthritis. And allow early mobilization. Patient has been admitted to the medicine team for optimization due to her multiple medical comorbidities. She has been NPO at midnight. There are no current medical contraindications to operative fixation. The risks and benefits of the procedure have been discussed with the patient and given the opportunity to ask questions. The risks of surgery include but are not limited to infection, malunion, nonunion, persistence of pain, damage to nerves and blood vessels, posttraumatic arthritis, DVT, PE, coardiopulmonary complications and . The patient expressed a thorough understanding of the risks and benefits of surgery and has elected to proceed. Consent was signed. She may restart her Plavix after surgery. And will take baby aspirin b.i.d. for DVT prophylaxis. She has no personal history blood clots. Goal is early mobilization. With diabetes bone healing is slower weight-bearing advancement will depend on bone quality stability of fixation and severity of neuropathy and wound healing. Will allow touchdown flatfoot for balance with a walker postoperatively in the splint. And we will consider progression well protected in a boot or a cast after her incisions are healed and she has evaluated at her 2 week postop. COVID-19 COVID-19 status: Negative Time Spent With Patient Time with patient: less than 30 minutes Critical Care time: I spent a total of [] minutes of critical care time on this patient's care today; this time is exclusive of procedural time.
[2022-08-31] MEDS: LACTATED RINGERS 1,000 ML 42 ML IV (08:53)
[2022-08-31] MEDS: CEFAZOLIN 2 GM/100 ML PREMIX 100 ML IV ×2 (09:00→16:25)
--- NOTE | 2022-08-31 09:32 | PT-IP ANOTE ---
PT eval received. EMR reviewed and pt has L ankle fracture and planned surgery today. will d/c PT eval order and await for new orders from ortho MD after surgery if pt will be appropriate for PT and also for precautions/weight bearing orders.
--- NOTE | 2022-08-31 09:44 | SUR.OPER ---
Supine on padded OR bed, head on pillow, arms secured on padded arm boards at <90 degrees abduction, legs uncrossed, safety belt at waist , tape over blanket over lower right leg, left leg draped free with gel bump under left gluteus and blankets under lower left leg.
[2022-08-31] MEDS: BUPIVACAINE 0.25% (PF) 30 ML, EPINEPHrine 0.15 MG INJ (09:51)
--- NOTE | 2022-08-31 11:04 | SUR.PHASEI ---
Patient recovering in stable condition; drowsy but arousable; denies pain; following all commands; NSR noted on monitor;
--- NOTE | 2022-08-31 11:18 | PM.OP.1 ---
Operative Date/Time/Diagnoses Date of procedure: 08/31/22 Time of procedure: 09:20 Pre-op diagnosis: Left ankle trimalleolar fracture. S82.853 Left ankle syndesmosis disruption S93.432 Post-op diagnosis: same Procedure & Clinicians Procedure: Open reduction internal fixation left trimalleolar ankle fracture without posterior malleolus fixation. CPT code 48148 Open reduction internal fixation left syndesmosis disruption CPT code 33806 Same procedure as scheduled: Yes Indications: Operative indications: The patient has an unstable and displaced left trimalleolar ankle fracture and was indicated for surgical reduction and stabilization. The patient was counseled regarding the rationale for this and the risks of surgery. The risks include infection, bleeding, damage to nerves and blood vessels, or tendons, wound dehiscence, malunion, nonunion, persistence of pain, DVT, PE, inability to return to her desired level of function, hardware breakage or prominence, generalized dissatisfaction with the procedure, need for additional procedures, cardiopulmonary complications and . The patient expressed understanding of all the risks and elected to proceed. Consent was signed. Patient understands that recovery is variable and may require up to a 1 year. The patient also understands that it is critical to strictly elevate the operative leg for the 1st 2 weeks after surgery to control swelling and pain. The patient was counseled that flatfoot or touchdown weight-bearing for balance until instructed it is safe to put additional weight on the ankle. The patient expressed full understanding of all these issues would like to proceed with surgery. DVT prophylaxis was discussed and will be completed with aspirin 81 mg b.i.d. starting postoperative day 1 patient is already on daily Plavix and 1 baby aspirin from underlying cardiac issues. (she will be able to take her her daily Plavix and will take aspirin 81 mg b.i.d. for 6 weeks postop) Surgeon: Pattie Delcid Click Yes if Unassisted: Yes Anesthesia Type: General and Local Operative Notes Findings: Trimalleolar ankle fracture, left with syndesmosis instability Closure Type: primary Specimen(s): none sent Applied: implant(s) (Arthrex fibulock nail 3mm x 130, 2.7 screws x3. 3.5x50mm screw, 4.0 x 36mmcannulated screw) Estimated Blood Loss (mL): 5 Blood products transfused: none Tourniquet time (min): 44 Procedure in detail: In the preoperative holding area, the appropriate limb and sites were marked, consent was again reviewed with the patient and all questions answered. The patient was brought to the operating room, placed on the operating table and given anesthetic. Following successful levels of anesthesia, the patient was appropriately padded, position secured to the table. An SCD was placed on the contralateral leg. All bony prominences were well padded. A well-padded thigh tourniquet was placed. The surgical leg was then prepped and draped in the usual sterile fashion. A formal time-out procedure was completed confirming the patient, site and side of surgery and administration of appropriate preoperative antibiotics. This was 2 g of Ancef. All were in agreement. An Esmarch bandage was utilized to exsanguinate the limb and the tourniquet was raised on the thigh to 250 mmHg. C-arm was brought in bony prominences were marked out. The level of fracture was marked out and the access of the fibula was marked out on the skin. A small Lateral incision was made over the fibula fracture site. Dissection was carried through the skin and subcutaneous tissue to the level of the fibula. The fracture was exposed and cleaned of debris. Fracture was reduced, restoring length rotation and anatomic alignment. This was clamped with the clamp directed proximally. Next a small incision was made 1 cm distal to the fibular tip and the guidewire for the fibula lock fibular nail was directed under fluoroscopic guidance into the fibula canal and advanced oscillating. Once adequate placement was obtained the opening drill was used and then the smaller drill. Good chatter was obtained a 3.2 drill so a 3.0 x 130 mm nail was selected. This was then advanced in the standard fashion. Appropriate implant positioning was confirmed on intraoperative fluoro. The talons were deployed. Next in the static position the 22.7 distal screws were placed and the single 2.7 AP screw was placed. Attention was then turned medially. The medial malleolus fracture had reduced in was essentially nondisplaced at this point therefore it was fixed percutaneously. A small incision was made distal to the medial malleolus and the guidewire for the 4.0 cannulated screw was advanced to the bone across the fracture. This was checked in AP and lateral planes to have appropriate alignment was measured and drilled and a 36 mm long thread 4.0 screw was advanced across the fracture site. This was a small medial malleolus fracture and was not felt that more than 1 screw would adequately fit but there was a good bite and fixation with the single screw. Next attention was turned back to the syndesmosis. There was a posterior malleolus fracture indicating syndesmotic instability. Since the posterior malleolus fracture was very small a decision was made for transsyndesmotic fixation. And this was completed with a tricortical screw through the selected distal slot and the fibular nail. This was drilled through all 4 cortices and then a 50 mm 3.5 screw was placed tricortical. Final x-rays in AP mortise and lateral planes were obtained. Mortise, syndesmosis was stable after fixation. Stability was confirmed under fluoro. The wounds were irrigated. We were quite satisfied with result clinically and radiographically. The tourniquet was released, and hemostasis achieved. The deep tissue was closed with 3 O Vicryl. Subcutaneous tissue was closed with 4 0 Monocryl in the skin with 3 O nylon. Local anesthetic was administered. A bulky [place] splint was applied. All counts were correct. The patient was then awoken and transported to recovery room in good condition. There no known immediate complications from this procedure. Complications: none Post-operative Condition: stable Disposition: PACU Plan for aftercare: Patient will be flatfoot touchdown for balance on the surgical leg. They will start taking aspirin 81 mg b.i.d. for DVT prophylaxis on postop day 1, for 6 weeks. She may restart her Plavix. The patient will follow up in 3 weeks for wound check, x-rays, suture removal and change to a cast or boot. They will follow up 4 weeks later for xr. and to advance weight-bearing.
--- NOTE | 2022-08-31 14:55 | PT.IIE ---
Current Diagnoses Displaced trimalleolar fracture of left lower leg, initial encounter for closed fracture (08/30/22) Surgery Performed Operation Date: 08/31/22 09:30 Actual Procedures p ORIF trimaleolar Ankle Fracture(Left) - Pattie Delcid MD Medical History (Last Updated 08/31/22 @ 08:03 by Pattie Delcid MD) Coronary artery disease No significant medical problems Type 1 diabetes Physical Therapy Inpatient Evaluation/Re-Eval M1 PT/OT-IP Prior Functional Status Start: 08/31/22 16:28 Freq: NEEDED Status: Active Protocol: Document 08/31/22 14:55 AB (Rec: 08/31/22 16:47 AB [id number]) Medical Review Prior Functional Status Medical History Reviewed Yes Communication able to make needs known Mobility and Gait pt stated that she is modified independent with all mobilities and ambulation without AD but has been using a SPC for the last 2 weeks due to falls; pt had 3 falls for the last week Social History Household Members family,children Living Arrangements House Number of Floors (Floors) Two Floors Number of Stairs To Enter/Railing? pt stays on first level of the house has 2 steps to enter without rails but pt stated that her son-in-law is putting in a ramp right now Home Environment Standard Height Toilet Home Equipment Front Wheel Walker,Straight Cane Additional Social History Comment pt's daughter and family lives on 2nd level of the house pt stated that the bathroom is upstairs and plans to sponge bathe for now M2 PT-IP Current Condition Start: 08/31/22 16:28 Freq: NEEDED Status: Active Protocol: Document 08/31/22 14:55 AB (Rec: 08/31/22 16:47 AB [id number]) Physical Therapy Current Condition Current Condition Evaluation Date 08/31/22 Treatment Diagnosis GLF; L ankle fx s/p ORIF; difficulty in walking Onset Date 08/30/22 M3 PT-IP Subjective Start: 08/31/22 16:28 Freq: NEEDED Status: Active Protocol: Document 08/31/22 14:55 AB (Rec: 08/31/22 16:47 AB [id number]) Subjective Physical Therapy Visit Type Type Initial Evaluation Visit Start Time 14:55 Visit Stop Time 15:58 Total Visit Minutes 63 Number of POLEYARD SUPERVISOR Visits 0 Physical Therapy Visit Comments Patient Comments agreeable to do PT Therapy Pain Assessment Pain When Pain Assessed At Rest Pain Present Pain Present Pain Reported Location Right Ankle Intensity 6 Scale Used Numeric (0 - 10) Pain Management Techniques Apply Cold,Elevation, Modification of Treatment,Re- positioning,Timing of Activity with Medications Left Ankle Intensity 5 Scale Used Numeric (0 - 10) Pain Management Techniques Distraction,Elevation, Modification of Treatment,Re- positioning,Timing of Activity with Medications M4 PT-IP Mobility and Gait Start: 08/31/22 16:28 Freq: NEEDED Status: Active Protocol: Document 08/31/22 14:55 AB (Rec: 08/31/22 16:47 AB [email or web address]) PT-Bed Mobility Assessment Supine to Sit Supine to Sit Moderate Assistance,1 Person Assistance,Head of Bed Elevated,Bedrails Sit to Supine Sit to Supine Moderate Assistance,1 Person Assistance,Bedrails PT-Transfer Assessment Sit to and From Stand Sit to and from Stand Maximum Assistance,1 Person Assistance,Use of Upper Extremities Equipment Transfer Assistive Device Gait Belt,Front Wheeled Walker Orthotic/Prosthetic Devices or Brace: Yes Comments Mobility Comments BP in supine: 136/63. pt educated on weight bearing restriction on LLE and pt understood. pt completed supine to sit mod A and cues with HOB elevated. pt used bed rail to assist. needs assist with LE mobility. able to sit on EOB CGA. c/o slight dizziness. BP in sittin/60. completed sit to stand max A and max cues. required max A for standing balance. pt only tolerated ~ 10 sec of standing and requested to sit back down. max A for descent. c/o increase R ankle pain. instructed pt to lateral scoot towards HOB and completed. pt completed sit to supine mod A and cues. positioned pt in bed. BP in supine: 176/65. call light and table placed within reach. Gait Assessment Comments Gait Comments unable at this time PT-Balance Assessment Sitting Balance and Reactions Static Sitting Balance Ability Good Dynamic Sitting Balance Ability Good Standing Balance and Reactions Static Standing Balance Ability Poor Dynamic Standing Balance Ability Poor Device Used FWW M5 PT-IP Objective Assessments Start: 08/31/22 16:28 Freq: NEEDED Status: Active Protocol: Document 08/31/22 14:55 AB (Rec: 08/31/22 16:47 AB [id number]) Orientation Orientation/Cognition Level of Alertness Alert Orientation Name,Place,Situation Language Function Ability No Deficits Noted Safety Awareness Decreased Safety Awareness Memory Description No Deficits Noted Gross Range of Motion Lower Extremity ROM Impairments L ankle on soft splint/cast Strength Lower Extremity Strength Hip 4-/5 Knee 4-/5 Ankle RLE: unable to test due to pain LLE: on soft cast Comments Strength Comments pt with c/o R ankle pain affecting ROM and strength Sensation Assessment Sensation Gross Sensation Right LE Impaired,Left LE Impaired Sensation Description Numbness Comments Sensation Comments has BLE neuropathy Muscle Tone Muscle Tone WNL Yes M6 PT-IP Treatment Start: 08/31/22 16:28 Freq: NEEDED Status: Active Protocol: Document 08/31/22 14:55 AB (Rec: 08/31/22 16:47 AB [email or web address]) Physical Therapy Treatment Education Education Provided Weight Bearing Status,Safety M7 PT-IP Assessment and Plan Start: 08/31/22 16:28 Freq: NEEDED Status: Active Protocol: Document 08/31/22 14:55 AB (Rec: 08/31/22 16:47 AB [id number]) PT Summary Assessment and Plan Potential Rehabilitation Potential Fair Status of Condition at Evaluation Evolving Summary Impairments Pain,ROM,Strength,Balance, Coordination,Sensation,Tone, Cognition,Bed Mobility, Transfers,Gait,Activity Tolerance Assessment Summary pt requiring max A for sit to stand using FWW for support for standing but unable to tolerate much standing to transfer. Pt with L ankle fx s/p ORIF but also c/o R ankle pain. Imaging showed soft tissue swelling and no fx. d/ c plan depending on progress but at this time will require SNF rehab. will continue to assess progress. pt is aware of equipment needs at home and stated that they are going to get a w/c for her . Goals Bed Mobility Goal Standby Assistance Transfer Goal Standby Assistance,Front Wheeled Walker,Slide Board Gait Goal Standby Assistance,Front Wheel Walker Gait Distance 50 Days to Meet Goals 10 Frequency of Treatment Frequency Of Treatment Twice a Day Treatment Plan Physical Therapy Treatment Plan Bed Mobility Training,Transfer Training,Gait Training, Therapeutic Exercise,Balance Retraining,Post Op Education, Discharge Planning,Hot or Cold Pack,Neuromuscular Re-ed, Coordination Retraining,Manual Therapy Weight Bearing Status Weight Bearing Status Touch Down Weight Bearing Allowed Weight Bearing Amount (enter % LLE: touch down weight Bearing or #) (%) /flat foot Recommendations To Nursing Amount of Assist Needed Mechanical Lift Discharge Recommendations PT Discharge Recommendations SNF Rehab Transportation Needs at Discharge Wheelchair/Cabulance
--- NOTE | 2022-08-31 15:05 | CM.DANOTE ---
Initial DCP Assessment Note Pt is a 67 yo female, resident of [place], presents after a fall at home w/ subsequent mildly displaced trimalleolar left ankle fracture- per Dr Delcid. Patient underwent operative fixation of this injury today by Dr Delcid; PT eval pending PCP: Unknown Payer: [facility] Reviewed chart, met w/patient and her dtr Helen at bedside, introduced self and role. Patient sleepy and groggy this visit, recently came back from the OR Patient lives w/her dtr Helen and her TEENA and tells this ELECTRICAL MAINTENANCE MAN she hopes to DC home w/their assist for recovery. Dtr is agreeable to this and both state understanding that therapy evals are pending and if recommendation is for SNF, CM team can discuss dispo options again w/patient and family Plan: Patient hopeful to return home w/family, agreeable to HH if recommended, therapy evals pending RAFAL Crawford Discharge Planning/Care Management CM Discharge Assessment Start: 08/31/22 15:03 Freq: Status: Active Protocol: Document 08/31/22 15:03 WES (Rec: 08/31/22 15:05 WES [id number]) Discharge Planning Assessment Assigned Dietician RAFAL Ramos DPOA/Assigned Designee Name Helen West dtr Contact Information [phone] Advance Directives? Yes Advance Directives on File No History Provided By Patient,Medical Record Prior Living Arrangements House Household Members family,children Type of transporation used prior to Drives own vehicle admit Independent with ADL's Yes Is patient alert and oriented? Yes Patient/Family Preference Home with Home Health Comment Pending therapy evals. Patient wants to return home w/dtr and Teena to assist. May benefit from HH upon DC Discharge Plan Home with Home Health Transportation Arrangement Family Additional Comment Pending PT/OT
[2022-08-31 20:45] LABS: TSH w/ Reflex to FT4 1.18 uIU/mL (0.47-4.68)
[2022-08-31] MEDS: INSULIN GLARGINE 100 UNIT/ML 3ML PEN 10 UNIT SUBCUT (21:35)
[2022-08-31] MEDS: DOCUSATE 100 MG CAPSULE PO (21:43)
[2022-08-31] MEDS: ATORVASTATIN 20 MG TABLET 40 MG PO (21:44)
[2022-08-31] MEDS: DULOXETINE 30 MG CAPSULE 60 MG PO (21:45)
[2022-08-31] MEDS: diphenhydrAMINE 25 MG TABLET PO (21:45)
[2022-08-31] MEDS: CLOPIDOGREL 75 MG TABLET PO (21:46)
[2022-08-31] MEDS: MELATONIN 3 MG TABLET 9 MG PO (21:47)
[2022-08-31] MEDS: buPROPion SR 150 MG TAB PO (21:47)
[2022-08-31] MEDS: METOPROLOL ER 50 MG TABLET 100 MG PO (21:48)
[2022-08-31] MEDS: GABAPENTIN 600 MG TABLET PO (21:51)
[2022-08-31] MEDS: ASPIRIN EC 81 MG TABLET PO (21:51)
[2022-09-01] VITALS (11 sets, daily range): BP systolic 140–159; BP diastolic 48–68; PULSE 69–93; RESP 16–18; TEMP 36.1–37.1; O2SAT 94–99
[2022-09-01] MEDS: CEFAZOLIN 2 GM/100 ML PREMIX 100 ML IV (01:19)
[2022-09-01] MEDS: LACTATED RINGERS 1,000 ML 125 ML IV (02:09)
[2022-09-01] MEDS: TRAMADOL 50 MG TABLET PO ×3 (04:31→20:56)
[2022-09-01] MEDS: ACETAMINOPHEN 325 MG TABLET 975 MG PO ×2 (04:32→14:29)
--- NOTE | 2022-09-01 05:51 | P.PN_ITS ---
Subjective Subjective Date Patient Seen: 09/01/22 Interval history: 67-year-old female? with type 1 diabetes with insulin pump, coronary artery disease, peripheral vascular disease, hyperlipidemia, depression, anxiety presently hospital day #2 and POD #1 admitted w/a right trimalleolar fx after a fall. Patient underwent operative repair of her ankle fracture yesterday. She is in p.m. this afternoon but recently had a pain pill. Last bowel movement was 3 days ago but she does not feel constipated. She does have some nausea currently. With regard to her falls over the last several weeks, she states 2 of them occurred and it seemed as though her legs gave out on her.? One occurred while she was on the toilet having a bowel movement.? She reports she did not have any warning about the falls.? Several weeks ago she did have what sounds like vertiginous symptoms but those had resolved before she began having falls. Echocardiogram was performed this morning but results are pending. Carotid ultrasound has not yet been performed. Exam Vital Signs (past 8 hours): - 09/01/22 00:00 09/01/22 01:22 09/01/22 01:00 Temperature 98.8 F Pulse Rate 80 93 H Respiratory Rate 18 Blood Pressure 140/48 L 159/61 H Pulse Oximetry 98 95 Oxygen Delivery Method Room Air Oxygen Flow Rate 0 0 09/01/22 01:00 09/01/22 04:35 09/01/22 04:35 Temperature 97.4 F L 97.8 F Pulse Rate 93 H 91 H Respiratory Rate 18 16 Blood Pressure 159/61 H 147/57 H Pulse Oximetry 95 94 94 Oxygen Delivery Method Room Air Oxygen Flow Rate 0 0 Oxygen Delivery Method Room Air Oxygen Flow Rate 0 Narrative Exam Narrative: GEN:? Pleasant middle-aged female, Alert and oriented x 3, flushed, uncomfortable appearing HEENT:NC, Face symmetric CHEST: Respiratory excursions symmetric, CTAB CV: RRR, no M/R/G ABD: Soft, NT/ND, BT present in all 4 quadrants, body habitus limits exam EXTR: warm, well perfused, no C/C/E, left lower extremity in postoperative cast SKIN: warm and dry, no rash NEURO: Alert and oriented x 3, nonfocal Objective Labs Result Diagrams: 09/01/22 10:15 09/01/22 10:15 Labs: Laboratory Results - last 24 hr 08/31/22 05:00 TSH 1.18 [facility] Medical History Coronary artery disease No significant medical problems Type 1 diabetes Social History marital status: details: 7 years ago yesterday household members: family and children lives independently: No (Lives with her daughter) Smoking Status: Never smoker alcohol intake: current Assessment & Plan Assessment & Plan narrative: 1. Right Trimalleolar fracture which required surgical fixation Patient is now postoperative day 1? from ORIF.? Currently having pain this afternoon. She was able to get up with therapy. Therapies have recommended rehab/snuff, but she has requested discharge home with home health. She lives with her daughter. She feels she will have adequate help. 2.? Frequent falls with possible syncopal episodes Suspect symptoms are multifactorial with no obvious etiology at this time Head CT was negative on admission.? Echocardiogram completed this morning with results pending. Await carotid ultrasound.? TSH was normal at 1.18. One of the falls sounds as though it was vasovagal when she was on the toilet.? The other 2 are more difficult to determine.? She had no warning prior to those falls and describes it as feeling as though her legs became weak and gave out. No symptoms when working with therapies. 3. JEN Baseline creatinine appears to be between 0.99 and 1.04.? On admission, creatinine was 1.23.? Today it is 1.05.? Will monitor. 4.? Type 1 diabetes on insulin pump Blood sugars have been in the mid-200s since her pump was d/c'd yesterday. Will give Lantus 10 units now and 10 units tonight. She typically uses prandial bolus as well. Basal rate on pump is 1.1 u/hr. Unfortunately, she was still on her pump yesterday when I saw her so I didn't adjust the Lantus. retail shift manager was notified and pump was subsequently d/c'd. ? 5.? Hypertension currently elevated BPs improved on her usual dose of metoprolol and lisinopril. 6. Peripheral neuropathy Continue usual outpatient dose of gabapentin 7.?Coronary artery disease Patient does not have a local loan documents closer but will establish with 1 after discharge 8.? Peripheral vascular disease status post stenting Continue Plavix and atorvastatin 9. Depression/anxiety Continue bupropion and duloxetine Code status DNR Prophylaxis Initiated on aspirin b.i.d. per Orthopedic surgery Disposition PT recommending SNF/Rehab. Pt requesting home w/HH. Will d/c [facility] and plan d/c home w/HH tomorrow. Time Spent With Patient Critical Care time: I spent a total of [] minutes of critical care time on this patient's care today; this time is exclusive of procedural time. Quality VTE Deep Vein Thrombosis/Pulmonary Embolism Present on Admission: No
[2022-09-01] MEDS: ASPIRIN EC 81 MG TABLET PO ×2 (08:25→20:56)
[2022-09-01] MEDS: DOCUSATE 100 MG CAPSULE PO ×2 (08:25→20:56)
[2022-09-01] MEDS: INSULIN LISPRO 100 UNIT/ML 3ML VIAL SUBCUT ×4 (08:26→20:49)
[2022-09-01] MEDS: lisinopriL 10 MG TABLET PO (08:51)
--- NOTE | 2022-09-01 08:53 | PM.PNPO.1 ---
Subjective Subjective Date Patient Seen: 09/01/22 Time Patient Seen: 08:53 Interval history: Postop day 1 left trimalleolar ankle ORIF, ORIF syndesmosis. Right ankle sprain Doing pretty well. Endorses some pain in the left ankle. States had pain in the right ankle when she tried to stand up with physical therapy. Not really much pain at rest on right side. Exam Vital Signs (past 8 hours): - 09/01/22 01:22 09/01/22 01:00 09/01/22 01:00 Temperature 97.4 F L Pulse Rate 93 H 93 H Respiratory Rate 18 Blood Pressure 159/61 H 159/61 H Pulse Oximetry 95 95 Oxygen Delivery Method Room Air Oxygen Flow Rate 0 0 09/01/22 04:35 09/01/22 04:35 09/01/22 08:51 Temperature 97.8 F Pulse Rate 91 H Respiratory Rate 16 Blood Pressure 147/57 H 147/57 H Pulse Oximetry 94 94 Oxygen Delivery Method Room Air Oxygen Flow Rate 0 Oxygen Delivery Method Room Air Oxygen Flow Rate 0 Narrative Exam Narrative: General exam alert oriented sitting up in bed eating breakfast. HEENT exam normocephalic atraumatic Regular rate and rhythm Left lower extremity in splint. Wiggles toes endorses sensation intact. Brisk capillary refill. Right lower extremity ankle minimal swelling. Some mild tenderness palpation medially. No lateral tenderness. Negative proximal syndesmotic squeeze. Calf is soft. Demonstrates flexion and extension of the ankle and toes. Brisk capillary refill. Tight Achilles tendons. Only gets to about 90 dorsiflexion. (states always been tight) Objective Labs Result Diagrams: 08/31/22 05:00 08/31/22 05:00 Labs: Laboratory Results - last 24 hr 08/31/22 05:00 TSH 1.18 PFSH Medical History Coronary artery disease No significant medical problems Type 1 diabetes Social History marital status: details: 7 years ago yesterday household members: family and children lives independently: No (Lives with her daughter) Smoking Status: Never smoker alcohol intake: current Assessment & Plan Post-op Postoperative Procedures: Procedures Operation Date: 08/31/22 09:30 Actual Procedure Side Surgeon p ORIF trimaleolar Ankle Fracture Left Pattie Delcid MD Postoperative day: 1 Postoperative status: doing well Postoperative status narrative: Doing well postop day 1 left trimalleolar ankle ORIF, syndesmotic ORIF. Flat foot for balance on the left side only Weightbear as tolerated in the right ankle. Will order stirrup brace that she can use weight-bearing on the right side. Does not need to wear it in bed. Discussed the importance of working on Achilles stretching for her right side Restarted on her aspirin and Plavix. Will do aspirin 81 b.i.d. for 6 weeks then can go back down to her baseline 81 daily Follow-up orthopedic clinic in 3 weeks for suture removal. Time Spent With Patient Time with patient: less than 15 minutes Quality VTE Deep Vein Thrombosis/Pulmonary Embolism Present on Admission: No
--- NOTE | 2022-09-01 09:16 | DI.ECHO.S_ITS ---
[facility] +---------+ : : [address] [place] : : : : [id number] : : : : Phone: [phone] Echocardiogram Report + + :Name: JADE GUY Study Date: 09/01/2022 Height: 64 in : :[facility] ReadingLocation: Weight: 186 lb : : Gender: Female BSA: 1.9 m2 : :: 1955 Age: 67 yrs BP: 125/51 mmHg: :Reason For Study: SYNCOPE : :Ordering Physician: INGRIS, : :ELIOT Performed By: Agustina Genao : :Referring: ELIOT AMADO : + + Interpretation Summary The left ventricular cavity is small. Proximal septal thickening is noted. There is no echo evidence for significant left ventricular outflow tract obstruction. The ejection fraction is estimated to be 65-70%. Left ventricular systolic function is normal. The right ventricle is normal in size and function. No significant valvular pathology seen. The IVC is of normal diameter and collapses greater than 50% with a sniff. This suggests a low right atrial pressure of 3 mm Hg. Procedure: A two-dimensional transthoracic echocardiogram with color flow and Doppler was performed. The study quality was technically adequate. A contrast injection of Definity was performed to improve assessment of LV function. There is no prior echocardiogram noted for this patient. The patient was in sinus rhythm with heart rates between 76-82 bpm during the exam. Left Ventricle: The left ventricular cavity is small. Proximal septal thickening is noted. There is no echo evidence for significant left ventricular outflow tract obstruction. There is no thrombus. The ejection fraction is estimated to be 65-70%. Left ventricular systolic function is normal. There are no focal wall motion abnormalities. Diastolic parameters suggest a relaxation abnormality of the left ventricle, consistent with probable normal filling pressures. Right Ventricle: The right ventricle is normal in size and function. Atria: The left atrial size is normal. Right atrial size is normal. There is no Doppler evidence for an interatrial shunt. Mitral Valve: The mitral valve leaflets are slightly calcified. There is trace mitral regurgitation. Aortic Valve: The aortic valve is trileaflet. The aortic valve opens well. There is no aortic valve stenosis. No aortic regurgitation is present. Tricuspid Valve: The tricuspid valve is normal in structure and function. There is trace tricuspid regurgitation. Pulmonary artery pressures cannot be estimated because of the lack of a measurable TR jet velocity. Pulmonic Valve: The pulmonic valve is not well seen, but is grossly normal. There is mild pulmonic regurgitation. Great Vessels: The aortic root is normal size. The dimensions of the ascending aorta are normal. The IVC is of normal diameter and collapses greater than 50% with a sniff. This suggests a low right atrial pressure of 3 mm Hg. Pericardium/ Pleura There is no pericardial effusion. There is no pleural effusion. MMode/2D Measurements & Calculations LVIDd: 3.5 cm LVOT diam: 1.9 cm LVIDs: 2.3 cm Ao root diam: 2.8 cm FS: 33.2 % asc Aorta Diam: 3.0 cm IVSd: 0.93 cm Ao Arch Diam (Prox Trans): 2.8 cm LVPWd: 0.77 cm LV morales. diameter/BSA (cm/m^2): 1.8 LV sys. diameter/BSA (cm/m^2): 1.2 LA A2 area: 16.7 cm2 RA long axis: 4.6 cm LA A4 area: 15.6 cm2 RA area: 10.1 cm2 LA length (vol): 4.7 cm RA vol: 19.2 ml LA vol: 46.7 ml RA : 10.1 ml/m2 LA vol index: 24.6 ml/m2 IVC diam: 1.5 cm RVD1 (basal): 3.2 cm RVD2 (mid): 2.9 cm TAPSE: 2.4 cm Doppler Measurements & Calculations Ao V2 max: 154.7 cm/sec LVOT Max Greg: 102.7 cm/sec Ao V2 mean: 106.3 cm/sec LV V1 max P.2 mmHg Ao max P.6 mmHg LV V1 VTI: 25.2 cm Ao mean P.1 mmHg JU(I,D): 2.1 cm2 Ao V2 VTI: 35.2 cm JU(V,D): 1.9 cm2 sev ratio: 0.72 JU indexed to BSA (cm^2/m^2): 1.1 MV E max greg: 90.8 cm/sec PA V2 max: 80.3 cm/sec MV A max greg: 102.7 cm/sec PA V2 mean: 54.0 cm/sec MV E/A: 0.88 PA mean P.3 mmHg Med Peak E' Greg: 9.1 cm/sec PA pr(Accel): 29.3 mmHg E/E' med: 9.9 Lat Peak E' Greg: 10.4 cm/sec E/E' lat: 8.8 E/e' average: 9.4 MV dec time: 0.19 sec SV([facility]): 72.1 ml Reading Physician:12:30 PM
[2022-09-01 10:31] LABS: Add Manual Diff / Slide Review NO; Basophils Absolute Auto 0 /uL (0-100); Basophils Percent Auto 0.5 % (0-2); Eosinophils Absolute Auto 100 /uL (0-450); Eosinophils Percent Auto 1.5 % (2-4); Hematocrit 34.1 % (36-46); Hemoglobin 11.8 g/dL (12.0-16.0); Lymphocytes Absolute Auto 1200 /uL (1100-4500); Lymphocytes Percent Auto 16.6 % (25-40); Mean Corpuscular HGB Conc 34.6 % (30-36); Mean Corpuscular Hemoglobin 31.2 PG (26-34); Mean Corpuscular Volume 90.2 fL (80-100); Monocytes Absolute Auto 600 /uL (0-900); Monocytes Percent Auto 7.6 % (3-14); Neutrophils Absolute Auto 5400 /uL (1500-7000); Neutrophils Percent Auto 73.8 % (50-75); Platelet Count 206 X10^3/uL (150-400); Red Blood Cell Count 3.78 X10^6/uL (4.0-5.2); Red Cell Distribution Width 12.9 % (11.6-14.8); White Blood Cell Count 7.3 X10^3/uL (4.5-11.0)
--- NOTE | 2022-09-01 10:45 | PT.IPTN ---
Current Diagnoses Displaced trimalleolar fracture of left lower leg, initial encounter for closed fracture (08/30/22) Surgery Performed Operation Date: 08/31/22 09:30 Actual Procedures p ORIF trimaleolar Ankle Fracture(Left) - Pattie Delcid MD Physical Therapy Treatment Note M2 PT-IP Current Condition Start: 08/31/22 16:28 Freq: NEEDED Status: Active Protocol: Document 08/31/22 14:55 AB (Rec: 08/31/22 16:47 AB [id number]) Physical Therapy Current Condition Current Condition Evaluation Date 08/31/22 Treatment Diagnosis GLF; L ankle fx s/p ORIF; difficulty in walking Onset Date 08/30/22 M3 PT-IP Subjective Start: 08/31/22 16:28 Freq: NEEDED Status: Active Protocol: Document 09/01/22 10:30 RBD (Rec: 09/01/22 12:15 RBD [id number]) Subjective Physical Therapy Visit Type Type Treatment Note Visit Start Time 10:30 Visit Stop Time 10:45 Total Visit Minutes 15 Number of MEDICAL ASSISTANT DERMATOLOGY Visits 1 Physical Therapy Visit Comments Patient Comments agreeable to do PT Therapy Pain Assessment Pain When Pain Assessed At Rest Pain Present Pain Present Pain Reported Location Right Ankle Intensity 7 Scale Used Numeric (0 - 10) Pain Management Techniques Distraction,Elevation, Modification of Treatment,Re- positioning,Timing of Activity with Medications Left Ankle Intensity 7 Scale Used Numeric (0 - 10) Description Throbbing Pain Management Techniques Distraction,Elevation, Modification of Treatment,Re- positioning,Timing of Activity with Medications M4 PT-IP Mobility and Gait Start: 08/31/22 16:28 Freq: NEEDED Status: Active Protocol: Document 09/01/22 10:30 RBD (Rec: 09/01/22 12:15 RBD [id number]) PT-Bed Mobility Assessment Supine to Sit Supine to Sit Moderate Assistance,1 Person Assistance,Head of Bed Elevated,Bedrails Sit to Supine Sit to Supine Moderate Assistance,1 Person Assistance,Bedrails Scooting Scooting to Edge of Bed Minimal Assistance PT-Transfer Assessment Sit to and From Stand Sit to and from Stand Minimal Assistance,1 Person Assistance,Use of Upper Extremities Equipment Transfer Assistive Device Gait Belt,Front Wheeled Walker Orthotic/Prosthetic Devices or Brace: Yes Comments Mobility Comments Pt in bed upon arrival and agreeable to PT. Revewed WB restrictions. MOD A for supine to sit EOB. CGA for sitting EOB. Min A for sit<> stand x 4 . Seated EOB exrcises, R ankle pumps and B knee extentions, CGA. Pt verbilized some dizzyness sitting EOB. BP: 140/63 P: 79. Dizzyness supsided with seated rest break. Nurse informed of dizzyness. MOD A for return to supine. Pt left in bed with all needs in reach. PT-Balance Assessment Sitting Balance and Reactions Static Sitting Balance Ability Good Dynamic Sitting Balance Ability Good Standing Balance and Reactions Static Standing Balance Ability Fair Dynamic Standing Balance Ability Poor Device Used FWW M5 PT-IP Objective Assessments Start: 08/31/22 16:28 Freq: NEEDED Status: Active Protocol: Document 08/31/22 14:55 AB (Rec: 08/31/22 16:47 AB [id number]) Orientation Orientation/Cognition Level of Alertness Alert Orientation Name,Place,Situation Language Function Ability No Deficits Noted Safety Awareness Decreased Safety Awareness Memory Description No Deficits Noted Gross Range of Motion Lower Extremity ROM Impairments L ankle on soft splint/cast Strength Lower Extremity Strength Hip 4-/5 Knee 4-/5 Ankle RLE: unable to test due to pain LLE: on soft cast Comments Strength Comments pt with c/o R ankle pain affecting ROM and strength Sensation Assessment Sensation Gross Sensation Right LE Impaired,Left LE Impaired Sensation Description Numbness Comments Sensation Comments has BLE neuropathy Muscle Tone Muscle Tone WNL Yes M6 PT-IP Treatment Start: 08/31/22 16:28 Freq: NEEDED Status: Active Protocol: Document 09/01/22 10:30 RBD (Rec: 09/01/22 12:15 RBD [id number]) Physical Therapy Treatment Exercises Exercises Ankle Pumps,Seated Knee Flexion/Extension Education Education Provided Weight Bearing Status,Safety M7 PT-IP Assessment and Plan Start: 08/31/22 16:28 Freq: NEEDED Status: Active Protocol: Document 09/01/22 10:30 RBD (Rec: 09/01/22 12:15 RBD [id number]) PT Summary Assessment and Plan Potential Rehabilitation Potential Fair Status of Condition at Evaluation Evolving Summary Impairments Pain,ROM,Strength,Balance, Coordination,Sensation,Tone, Cognition,Bed Mobility, Transfers,Gait,Activity Tolerance Assessment Summary Pt requires Min A for EOB scooting and Sit<>stand. Remians limited by low activity tolerance and increased pain in B ankles. Unable to transfera at this time secondary to pain and limited funtional moblity. Pt would benifit from SNF to increase endruance for clayton transfers. Will conttinue to assess. Goals Bed Mobility Goal Standby Assistance Transfer Goal Standby Assistance,Front Wheeled Walker,Slide Board Gait Goal Standby Assistance,Front Wheel Walker Gait Distance 50 Days to Meet Goals 10 Frequency of Treatment Frequency Of Treatment Twice a Day Treatment Plan Physical Therapy Treatment Plan Bed Mobility Training,Transfer Training,Gait Training, Therapeutic Exercise,Balance Retraining,Post Op Education, Discharge Planning,Hot or Cold Pack,Neuromuscular Re-ed, Coordination Retraining,Manual Therapy Weight Bearing Status Weight Bearing Status Touch Down Weight Bearing Allowed Weight Bearing Amount (enter % LLE: touch down weight Bearing or #) (%) /flat foot Recommendations To Nursing Amount of Assist Needed Mechanical Lift Discharge Recommendations PT Discharge Recommendations SNF Rehab Transportation Needs at Discharge Wheelchair/Cabulance
[2022-09-01 10:46] LABS: Alanine Aminotransferase 12 IU/L (<35); Albumin 3.1 g/dL (3.5-5.0); Alkaline Phosphatase 75 U/L (38-126); Aspartate Aminotransferase 22 IU/L (14-36); BUN Creatinine Ratio 12.4 (6-22); Bilirubin Total 0.6 mg/dL (0.2-1.3); Blood Urea Nitrogen 13 mg/dL (7-17); Calcium 8.3 mg/dL (8.4-10.2); Carbon Dioxide 28 mmol/L (22-32); Chloride 96 mmol/L (98-107); Estimated Glomerular Filt Rate 59 mL/min (>60); Globulin 3.1 g/dL (1.7-4.1); Glucose 259 mg/dL (80-110); HEMOLYSIS < 15 (0-50); Magnesium 1.5 mg/dL (1.6-2.3); Sodium 133 mmol/L (137-145); Total Protein 6.2 g/dL (6.3-8.2)
[2022-09-01] MEDS: MAGNESIUM CHLORIDE 64 MG TABLET 128 MG PO (12:17)
[2022-09-01] MEDS: INSULIN GLARGINE 100 UNIT/ML 3ML PEN 10 UNIT SUBCUT ×2 (17:26→20:50)
[2022-09-01] MEDS: METOPROLOL ER 50 MG TABLET 100 MG PO (20:53)
[2022-09-01] MEDS: ATORVASTATIN 20 MG TABLET 40 MG PO (20:56)
[2022-09-01] MEDS: MELATONIN 3 MG TABLET 9 MG PO (20:56)
[2022-09-01] MEDS: GABAPENTIN 600 MG TABLET PO (20:56)
[2022-09-01] MEDS: CLOPIDOGREL 75 MG TABLET PO (20:56)
[2022-09-01] MEDS: DULOXETINE 30 MG CAPSULE 60 MG PO (20:56)
[2022-09-01] MEDS: buPROPion SR 150 MG TAB PO (21:02)
[2022-09-02] VITALS (14 sets, daily range): BP systolic 144–183; BP diastolic 66–82; PULSE 71–82; RESP 16–20; TEMP 35.6–36.7; O2SAT 95–99
[2022-09-02] MEDS: ACETAMINOPHEN 325 MG TABLET 975 MG PO ×2 (03:11→15:56)
[2022-09-02 06:28] LABS: Add Manual Diff / Slide Review NO; Basophils Absolute Auto 100 /uL (0-100); Basophils Percent Auto 1.1 % (0-2); Eosinophils Absolute Auto 100 /uL (0-450); Eosinophils Percent Auto 2.2 % (2-4); Hematocrit 33.8 % (36-46); Hemoglobin 11.7 g/dL (12.0-16.0); Lymphocytes Absolute Auto 1300 /uL (1100-4500); Lymphocytes Percent Auto 20.5 % (25-40); Mean Corpuscular HGB Conc 34.6 % (30-36); Mean Corpuscular Hemoglobin 31.2 PG (26-34); Mean Corpuscular Volume 90.1 fL (80-100); Monocytes Absolute Auto 500 /uL (0-900); Monocytes Percent Auto 7.9 % (3-14); Neutrophils Absolute Auto 4200 /uL (1500-7000); Neutrophils Percent Auto 68.3 % (50-75); Platelet Count 229 X10^3/uL (150-400); Red Blood Cell Count 3.74 X10^6/uL (4.0-5.2); White Blood Cell Count 6.2 X10^3/uL (4.5-11.0)
[2022-09-02 06:41] LABS: Alanine Aminotransferase 9 IU/L (<35); Alkaline Phosphatase 86 U/L (38-126); Aspartate Aminotransferase 23 IU/L (14-36); BUN Creatinine Ratio 14.5 (6-22); Bilirubin Total 0.5 mg/dL (0.2-1.3); Blood Urea Nitrogen 16 mg/dL (7-17); Calcium 8.3 mg/dL (8.4-10.2); Carbon Dioxide 31 mmol/L (22-32); Chloride 99 mmol/L (98-107); Estimated Glomerular Filt Rate 55 mL/min (>60); Globulin 3.1 g/dL (1.7-4.1); Glucose 275 mg/dL (80-110); HEMOLYSIS < 15 (0-50); Magnesium 1.7 mg/dL (1.6-2.3); Potassium 3.9 mmol/L (3.4-5.1); Sodium 135 mmol/L (137-145); Total Protein 6.1 g/dL (6.3-8.2)
--- NOTE | 2022-09-02 07:49 | PM.PNPO.1 ---
Subjective Subjective Date Patient Seen: 09/02/22 Time Patient Seen: 07:49 Interval history: Current pain patient states is tolerable. She denies any fever or chills. No nausea/ vomiting. Exam Vital Signs (past 8 hours): - 09/02/22 01:00 09/02/22 01:00 09/02/22 05:00 Temperature Pulse Rate Respiratory Rate Blood Pressure Pulse Oximetry 97 95 95 Oxygen Delivery Method Room Air Room Air Room Air 09/02/22 03:36 Temperature 97 F L Pulse Rate 82 Respiratory Rate 19 Blood Pressure 183/82 H Pulse Oximetry 99 Oxygen Delivery Method Oxygen Delivery Method Room Air Oxygen Flow Rate 0 Narrative Exam Narrative: Pleasant 67-year-old female resting comfortably in bed in no apparent distress. Left ankle splint is in good repair. Able to wiggle all toes. Sensation grossly intact to light touch. Toes are warm. Calf is soft. Const General: cooperative and comfortable Nutritional Appearance: average body habitus Orientation: alert Resp Effort & Inspection: normal respiratory effort and able to speak in complete sentences Objective Labs Result Diagrams: 09/02/22 06:11 09/02/22 06:11 Labs: Laboratory Results - last 24 hr 09/01/22 09/01/22 09/02/22 10:15 10:15 06:11 WBC 7.3 6.2 RBC 3.78 L 3.74 L Hgb 11.8 L 11.7 L Hct 34.1 L 33.8 L MCV 90.2 D 90.1 MCH 31.2 31.2 MCHC 34.6 34.6 RDW 12.9 13.0 Plt Count 206 229 Neut % (Auto) 73.8 68.3 Lymph % (Auto) 16.6 L 20.5 L Gar[place] % (Auto) 7.6 7.9 Eos % (Auto) 1.5 L 2.2 Baso % (Auto) 0.5 1.1 Neut # (Auto) 5400 4200 Lymph # (Auto) 1200 1300 [place] # (Auto) 600 500 Eos # (Auto) 100 100 Baso # (Auto) 0 100 Sodium 133 L Potassium 4.0 Chloride 96 L Carbon Dioxide 28 BUN 13 Creatinine 1.05 H Estimated GFR 59 L BUN/Creatinine Ratio 12.4 Glucose 259 H Calcium 8.3 L Magnesium 1.5 L Total Bilirubin 0.6 AST 22 ALT 12 Alkaline Phosphatase 75 Total Protein 6.2 L Albumin 3.1 L Globulin 3.1 Albumin/Globulin Ratio 1.0 09/02/22 06:11 WBC RBC Hgb Hct MCV MCH MCHC RDW Plt Count Neut % (Auto) Lymph % (Auto) Gar[place] % (Auto) Eos % (Auto) Baso % (Auto) Neut # (Auto) Lymph # (Auto) [place] # (Auto) Eos # (Auto) Baso # (Auto) Sodium 135 L Potassium 3.9 Chloride 99 Carbon Dioxide 31 BUN 16 Creatinine 1.10 H Estimated GFR 55 L BUN/Creatinine Ratio 14.5 Glucose 275 H Calcium 8.3 L Magnesium 1.7 Total Bilirubin 0.5 AST 23 ALT 9 Alkaline Phosphatase 86 Total Protein 6.1 L Albumin 3.0 L Globulin 3.1 Albumin/Globulin Ratio 1.0 PFSH Medical History Coronary artery disease No significant medical problems Type 1 diabetes Social History marital status: details: 7 years ago yesterday household members: family and children lives independently: No (Lives with her daughter) Smoking Status: Never smoker alcohol intake: current Assessment & Plan Post-op Postoperative Procedures: Procedures Operation Date: 08/31/22 09:30 Actual Procedure Side Surgeon p ORIF trimaleolar Ankle Fracture Left Pattie Delcid MD Postoperative day: 2 Postoperative status narrative: Doing well postop day 2 left trimalleolar ankle ORIF, syndesmotic ORIF. Postoperative plan narrative: Flat foot for balance on the left side only Weightbear as tolerated in the right ankle. stirrup brace brace ordered, she can use weight-bearing on the right side. Does not need to wear it in bed. Discussed the importance of working on Achilles stretching for her right side Restarted on her aspirin and Plavix. Will do aspirin 81 b.i.d. for 6 weeks then can go back down to her baseline 81 daily Follow-up orthopedic clinic in 3 weeks for suture removal. Hospitalist following for history of frequent falls with possible syncopal episodes, echocardiogram ordered for this morning., JEN, type 1 diabetes on insulin pump, hypertension, peripheral neuropathy, coronary artery disease, peripheral vascular disease status post stenting, depression anxiety, Physical therapy currently recommending half-way facility, patient requesting home with home health services. Discharge per hospitalist when medically stable. Quality VTE Deep Vein Thrombosis/Pulmonary Embolism Present on Admission: No
[2022-09-02] MEDS: INSULIN LISPRO 100 UNIT/ML 3ML VIAL SUBCUT ×4 (08:25→20:22)
[2022-09-02] MEDS: lisinopriL 10 MG TABLET PO (08:26)
[2022-09-02] MEDS: ASPIRIN EC 81 MG TABLET PO ×2 (08:26→20:17)
[2022-09-02] MEDS: DOCUSATE 100 MG CAPSULE PO ×2 (08:26→20:18)
--- NOTE | 2022-09-02 09:00 | DI.US.S_ITS ---
PROCEDURE: US CAROTID DOPPLER BI INDICATIONS: SYNCOPE TECHNIQUE: Color and pulse Doppler interrogation was performed of both carotid systems, with image documentation and velocity measurements. COMPARISON: None. FINDINGS: Stenosis calculations are based on SRU (Society of Radiologists in Ultrasound) criteria. The flow velocities and the arterial waveforms are normal within both carotid arterial systems. Mild atherosclerotic change can be seen on the left. The estimated degree of internal carotid artery stenosis is less than 50%. Antegrade flow is confirmed within both vertebral arteries. IMPRESSION: No hemodynamically significant stenosis is seen. Dictated by: Bernardino Irving M.D. on 09/02/2022 at 8:35 Approved by: Bernardino Irving M.D. on 09/02/2022 at 8:36
--- NOTE | 2022-09-02 10:57 | PT.IPTN ---
Current Diagnoses Displaced trimalleolar fracture of left lower leg, initial encounter for closed fracture (08/30/22) Surgery Performed Operation Date: 08/31/22 09:30 Actual Procedures p ORIF trimaleolar Ankle Fracture(Left) - Pattie Delcid MD Physical Therapy Treatment Note M2 PT-IP Current Condition Start: 08/31/22 16:28 Freq: NEEDED Status: Active Protocol: Document 09/02/22 10:48 SAK (Rec: 09/02/22 10:[address] [facility] [id number]) Physical Therapy Current Condition Current Condition Evaluation Date 08/31/22 Treatment Diagnosis GLF; L ankle fx s/p ORIF; difficulty in walking Onset Date 08/30/22 M3 PT-IP Subjective Start: 08/31/22 16:28 Freq: NEEDED Status: Active Protocol: Document 09/02/22 10:48 SAK (Rec: 09/02/22 10:[address] [facility] [id number]) Subjective Physical Therapy Visit Type Type Treatment Note Visit Start Time 10:10 Visit Stop Time 10:45 Total Visit Minutes 35 Physical Therapy Visit Comments Patient Comments c/o fatigue, left ankle pain 4 /10, right ankle sore but they took x-rays and didn't see anything. Therapy Pain Assessment Pain When Pain Assessed At Rest Pain Present Pain Present Denied Pain Location Right Ankle Intensity 3 Scale Used Numeric (0 - 10) Description Aching,With Movement Pain Management Techniques Distraction,Elevation, Modification of Treatment,Re- positioning,Timing of Activity with Medications Left Ankle Intensity 4 Scale Used Numeric Description With Movement Pain Management Techniques Distraction,Elevation, Modification of Treatment,Re- positioning,Timing of Activity with Medications M4 PT-IP Mobility and Gait Start: 08/31/22 16:28 Freq: NEEDED Status: Active Protocol: Document 09/02/22 10:48 SAK (Rec: 09/02/22 10:[address] [facility] [id number]) PT-Bed Mobility Assessment Supine to Sit Supine to Sit Minimal Assistance,1 Person Assistance,Head of Bed Elevated,Bedrails PT-Transfer Assessment Sit to and From Stand Sit to and from Stand Minimal Assistance,1 Person Assistance,Use of Upper Extremities Equipment Transfer Assistive Device Gait Belt,Front Wheeled Walker Orthotic/Prosthetic Devices or Brace: Yes Comments Mobility Comments Pt in bed upon arrival and agreeable to PT. Revewed WB restrictions. MIN A for supine to sit EOB. SBA for sitting EOB. PT donned Croc slip on right foot. Min to mod assist and verbal cues for sit<> stand x 4. Not yet able to take step and maintain TTWB precaution for left LE. Seated EOB exrcises, R ankle pumps and B knee extentions, SBA. Denied dizziness. MIN A for return sit to supine. Pt left in bed with tray table and call light in reach. Gait Assessment Comments Gait Comments unable at this time M5 PT-IP Objective Assessments Start: 08/31/22 16:28 Freq: NEEDED Status: Active Protocol: Document 08/31/22 14:55 AB (Rec: 08/31/22 16:47 AB [id number]) Orientation Orientation/Cognition Level of Alertness Alert Orientation Name,Place,Situation Language Function Ability No Deficits Noted Safety Awareness Decreased Safety Awareness Memory Description No Deficits Noted Gross Range of Motion Lower Extremity ROM Impairments L ankle on soft splint/cast Strength Lower Extremity Strength Hip 4-/5 Knee 4-/5 Ankle RLE: unable to test due to pain LLE: on soft cast Comments Strength Comments pt with c/o R ankle pain affecting ROM and strength Sensation Assessment Sensation Gross Sensation Right LE Impaired,Left LE Impaired Sensation Description Numbness Comments Sensation Comments has BLE neuropathy Muscle Tone Muscle Tone WNL Yes M6 PT-IP Treatment Start: 08/31/22 16:28 Freq: NEEDED Status: Active Protocol: Document 09/02/22 10:[address] [facility] (Rec: 09/02/22 10:[address] [facility] [id number]) Physical Therapy Treatment Exercises Exercises Ankle Pumps,Seated Knee Flexion/Extension Education Education Provided Weight Bearing Status,Safety M7 PT-IP Assessment and Plan Start: 08/31/22 16:28 Freq: NEEDED Status: Active Protocol: Document 09/02/22 10:48 SAK (Rec: 09/02/22 10:[address] [facility] [id number]) PT Summary Assessment and Plan Potential Rehabilitation Potential Fair Status of Condition at Evaluation Evolving Summary Impairments Pain,ROM,Strength,Balance, Coordination,Sensation,Tone, Cognition,Bed Mobility, Transfers,Gait,Activity Tolerance Assessment Summary Patient initially verbalized that she was planning to be discharged home with daughter. After bed mobility and transfers with need for assist and LOB backward toward bed x 1 while standing requiring mod assist patient verbalizing she is maybe not ready to go home. Patient continues to c/ o right ankle pain as well. Goals Bed Mobility Goal Standby Assistance Transfer Goal Standby Assistance,Front Wheeled Walker,Slide Board Gait Goal Standby Assistance,Front Wheel Walker Gait Distance 50 Days to Meet Goals 10 Frequency of Treatment Frequency Of Treatment Twice a Day Treatment Plan Physical Therapy Treatment Plan Bed Mobility Training,Transfer Training,Gait Training, Therapeutic Exercise,Balance Retraining,Post Op Education, Discharge Planning,Hot or Cold Pack,Neuromuscular Re-ed, Coordination Retraining,Manual Therapy Weight Bearing Status Weight Bearing Status Touch Down Weight Bearing Allowed Weight Bearing Amount (enter % LLE: touch down weight Bearing or #) (%) /flat foot Recommendations To Nursing Amount of Assist Needed 1 Person Assist Discharge Recommendations PT Discharge Recommendations SNF Rehab Transportation Needs at Discharge Wheelchair/Cabulance
--- NOTE | 2022-09-02 12:14 | PM.PN.1 ---
Subjective Subjective Date Patient Seen: 09/02/22 Time Patient Seen: 12:49 Interval history: Patient notes ongoing left ankle pain, but controlled well with tramadol. She has no other complaints. Exam Vital Signs (past 8 hours): - 09/02/22 05:00 09/02/22 07:50 09/02/22 08:26 Temperature 97.2 F L Pulse Rate 71 71 Respiratory Rate 16 Blood Pressure 164/71 H 164/71 H Pulse Oximetry 95 96 Oxygen Delivery Method Room Air Oxygen Flow Rate 0 09/02/22 11:00 Temperature 96.8 F L Pulse Rate 74 Respiratory Rate 18 Blood Pressure 145/66 H Pulse Oximetry 96 Oxygen Delivery Method Oxygen Flow Rate 0 Oxygen Delivery Method Room Air Oxygen Flow Rate 0 Narrative Exam Narrative: GEN:? Pleasant middle-aged female, Alert and oriented x 3 HEENT:NC, Face symmetric CHEST: Respiratory excursions symmetric, CTAB CV: RRR, no M/R/G ABD: Soft, NT/ND, BT present in all 4 quadrants, body habitus limits exam EXTR: warm, well perfused, no C/C/E, left lower extremity in postoperative cast SKIN: warm and dry, no rash NEURO: Alert and oriented x 3, nonfocal Objective Labs Result Diagrams: 09/02/22 06:11 09/02/22 06:11 Labs: Laboratory Results - last 24 hr 09/02/22 09/02/22 06:11 06:11 WBC 6.2 RBC 3.74 L Hgb 11.7 L Hct 33.8 L MCV 90.1 MCH 31.2 MCHC 34.6 RDW 13.0 Plt Count 229 Neut % (Auto) 68.3 Lymph % (Auto) 20.5 L [place] % (Auto) 7.9 Eos % (Auto) 2.2 Baso % (Auto) 1.1 Neut # (Auto) 4200 Lymph # (Auto) 1300 [place] # (Auto) 500 Eos # (Auto) 100 Baso # (Auto) 100 Sodium 135 L Potassium 3.9 Chloride 99 Carbon Dioxide 31 BUN 16 Creatinine 1.10 H Estimated GFR 55 L BUN/Creatinine Ratio 14.5 Glucose 275 H Calcium 8.3 L Magnesium 1.7 Total Bilirubin 0.5 AST 23 ALT 9 Alkaline Phosphatase 86 Total Protein 6.1 L Albumin 3.0 L Globulin 3.1 Albumin/Globulin Ratio 1.0 [facility] Medical History Coronary artery disease No significant medical problems Type 1 diabetes Social History marital status: details: 7 years ago yesterday household members: family and children lives independently: No (Lives with her daughter) Smoking Status: Never smoker alcohol intake: current Assessment & Plan Assessment & Plan narrative: 1. Right Trimalleolar fracture which required surgical fixation Patient is now postoperative day 1? from ORIF.? Currently having pain this afternoon. She was able to get up with therapy. Therapies have recommended SNF. She lives with her daughter. She feels she will have adequate help. 2.? Frequent falls with possible syncopal episodes Suspect symptoms are multifactorial with no obvious etiology at this time Head CT was negative on admission.? Echocardiogram completed this morning with results pending. Await carotid ultrasound.? TSH was normal at 1.18. One of the falls sounds as though it was vasovagal when she was on the toilet.? The other 2 are more difficult to determine.? She had no warning prior to those falls and describes it as feeling as though her legs became weak and gave out. No symptoms when working with therapies. 3. JNE Baseline creatinine appears to be between 0.99 and 1.04.? On admission, creatinine was 1.23.? Today it is 1.05.? Will monitor. 4.? Type 1 diabetes on insulin pump Blood sugars have been in the mid-200s since her pump was d/c'd yesterday. Will give Lantus 10 units now and 10 units tonight. She typically uses prandial bolus as well. Basal rate on pump is 1.1 u/hr. Unfortunately, she was still on her pump yesterday when I saw her so I didn't adjust the Lantus. estate manager was notified and pump was subsequently d/c'd. ? 5.? Hypertension currently elevated BPs improved on her usual dose of metoprolol and lisinopril. 6. Peripheral neuropathy Continue usual outpatient dose of gabapentin 7.?Coronary artery disease Patient does not have a local forest logistics manager but will establish with 1 after discharge 8.? Peripheral vascular disease status post stenting Continue Plavix and atorvastatin 9. Depression/anxiety Continue bupropion and duloxetine Code status DNR Prophylaxis Initiated on aspirin b.i.d. per Orthopedic surgery Disposition PT recommending SNF/Rehab. Pending auth. Time Spent With Patient Critical Care time: I spent a total of [] minutes of critical care time on this patient's care today; this time is exclusive of procedural time. Quality VTE Deep Vein Thrombosis/Pulmonary Embolism Present on Admission: No
--- NOTE | 2022-09-02 14:27 | CM.DPC ---
Addendum entered by RAFAL Navarrete 09/02/22 15:16: ADD: SW had made [facility] referral initially this morning when anticipated d/c home with Dtr and HH and SW called [facility] and updated that pt may d/c to SNF if accepting SNF can be set up. They will continue to follow in case pt discharges home. BF Original Note: DCP HH vs SNF Per MD, attempted to discharge pt home with Dtr and HH today but after further PT pt cannot safely d/c home and needs SNF. SW met bedside with pt and explained role and pt confirms that she cannot ambulate without 2PA due to both ankles and feels she needs SNF at d/c. SW provided SNF Choice List and discussed the need for [employer] to auth SNF and for pt to go to [facility] contracted SNF and discussed [facility] currently is full and pt was agreeable with referrals to be sent to [facility], [facility], and [facility] as they are contracted. Pt confirms that Dtr is home as they only have one vehicle and pt's Son ham needs the vehicle for work but Dtr has been kept updated by phone by pt and pt confirms Dtr is her DPOA. SW called the 3 SNF's and faxed clinicals to review. PASRR completed and COVID vax status printed off [facility]. Plan: SW to follow for review from [facility], [facility], [facility], [facility] to determine if they can accept and to initiate [employer] SNF auth for hopeful discharge to SNF tomorrow 09/03/22. RAFAL Navarrete
--- NOTE | 2022-09-02 14:36 | PT.IPTN ---
Current Diagnoses Displaced trimalleolar fracture of left lower leg, initial encounter for closed fracture (08/30/22) Surgery Performed Operation Date: 08/31/22 09:30 Actual Procedures p ORIF trimaleolar Ankle Fracture(Left) - Pattie Delcid MD Physical Therapy Treatment Note M2 PT-IP Current Condition Start: 08/31/22 16:28 Freq: NEEDED Status: Active Protocol: Document 09/02/22 14:05 SP (Rec: 09/02/22 18:50 SP [id number]) Physical Therapy Current Condition Current Condition Evaluation Date 08/31/22 Treatment Diagnosis GLF; L ankle fx s/p ORIF; difficulty in walking Onset Date 08/30/22 M3 PT-IP Subjective Start: 08/31/22 16:28 Freq: NEEDED Status: Active Protocol: Document 09/02/22 14:05 SP (Rec: 09/02/22 18:50 SP [id number]) Subjective Physical Therapy Visit Type Type Treatment Note Visit Start Time 14:05 Visit Stop Time 14:36 Total Visit Minutes 31 Number of JET MAN Visits 1 Physical Therapy Visit Comments Patient Comments Pt agreeable to working with therapy. Patient Goals going to rehab for strengthening Therapy Pain Assessment Pain When Pain Assessed During Mobility Pain Present Pain Present Pain Reported Location Right Ankle Scale Used not quantified, requested brace mentioned Description With Movement Pain Behaviors Facial Grimacing Pain Management Techniques Distraction,Elevation, Modification of Treatment,Re- positioning Left Ankle Scale Used not quantified Description With Movement Pain Management Techniques Distraction,Elevation, Modification of Treatment,Re- positioning M4 PT-IP Mobility and Gait Start: 08/31/22 16:28 Freq: NEEDED Status: Active Protocol: Document 09/02/22 14:05 SP (Rec: 09/02/22 18:50 SP [id number]) PT-Bed Mobility Assessment Supine to Sit Supine to Sit Minimal Assistance,1 Person Assistance,Head of Bed Elevated,Bedrails Scooting Scooting to Edge of Bed Minimal Assistance PT-Transfer Assessment Sit to and From Stand Sit to and from Stand Maximum Assistance,1 Person Assistance,Use of Upper Extremities Equipment Transfer Assistive Device Gait Belt,Front Wheeled Walker Orthotic/Prosthetic Devices or Brace: Yes Transfers Transfer Destination Chair,Bedside Commode Transfer Technique Stand Pivot Transfer Ability Level of Assist Contact Guard Assistance, Minimal Assistance,Maximum Assistance,2 Person Assistance ,Use of Upper Extremities Comments Mobility Comments Pt noted no R ankle brace in room that was documented in physican note, notified nursing to follow up and acquire which requesting use. She completed bed mob min A x1 for trunk support. Sit>stand Max A x1 and RLE scoot on floor Heavy BUE WB on FWW and backing up fully, challenged with maintiaining TTWB LLE w/ Max cues throughout tx. Pt able to void and self pericare sitting and asked assist from JET MAN to be sure completed. Sit >stand Max A x1 SPT w/FWW BSC> chair continue > TTWB demontrated, max cues to maintain. Assist don brief BLEs, Sit>stand FWW UI PROGRAMMER assist brief mgt while provide Max A x1. Pt was reclined in chair with all needs in reach and chair alarm donned. Gait Assessment Comments Gait Comments Transfer only w/ FWW, Max cues for maintain TTWB on LLE, unable to maintain throughout pivot. Stair Climbing Assessment Comments Stair Climbing Comments Will need to assess 2 stairs 0 HR unless TEENA installed a ramp. PT-Balance Assessment Sitting Balance and Reactions Static Sitting Balance Ability Normal Dynamic Sitting Balance Ability Good Standing Balance and Reactions Static Standing Balance Ability Poor Dynamic Standing Balance Ability Poor Device Used FWW M5 PT-IP Objective Assessments Start: 08/31/22 16:28 Freq: NEEDED Status: Active Protocol: Document 08/31/22 14:55 AB (Rec: 08/31/22 16:47 AB [id number]) Orientation Orientation/Cognition Level of Alertness Alert Orientation Name,Place,Situation Language Function Ability No Deficits Noted Safety Awareness Decreased Safety Awareness Memory Description No Deficits Noted Gross Range of Motion Lower Extremity ROM Impairments L ankle on soft splint/cast Strength Lower Extremity Strength Hip 4-/5 Knee 4-/5 Ankle RLE: unable to test due to pain LLE: on soft cast Comments Strength Comments pt with c/o R ankle pain affecting ROM and strength Sensation Assessment Sensation Gross Sensation Right LE Impaired,Left LE Impaired Sensation Description Numbness Comments Sensation Comments has BLE neuropathy Muscle Tone Muscle Tone WNL Yes M6 PT-IP Treatment Start: 08/31/22 16:28 Freq: NEEDED Status: Active Protocol: Document 09/02/22 14:05 SP (Rec: 09/02/22 18:50 SP [id number]) Physical Therapy Treatment Education Education Provided Weight Bearing Status,Safety M7 PT-IP Assessment and Plan Start: 08/31/22 16:28 Freq: NEEDED Status: Active Protocol: Document 09/02/22 14:05 SP (Rec: 09/02/22 18:50 SP [id number]) PT Summary Assessment and Plan Potential Rehabilitation Potential Fair Status of Condition at Evaluation Evolving Summary Impairments Pain,ROM,Strength,Balance, Coordination,Sensation,Tone, Cognition,Bed Mobility, Transfers,Gait,Activity Tolerance Progress Towards Goals Slow Progress due to Pain,Slow Progress due to Activity Tolerance,Slow Progress - Other Assessment Summary Pt requires Min bed mob, Max A x1 trasfer w/ FWW, recommending nursing Max x2 persons due to assist maintaining TTTWB LLE, don RLE ankle air cast pre mobility transfers only. Pt would benefit and agreeableto SNF to progress strength and mobility independence. Goals Bed Mobility Goal Standby Assistance Transfer Goal Standby Assistance,Front Wheeled Walker,Slide Board Gait Goal Standby Assistance,Front Wheel Walker Gait Distance 50 Days to Meet Goals 10 Frequency of Treatment Frequency Of Treatment Twice a Day Treatment Plan Physical Therapy Treatment Plan Bed Mobility Training,Transfer Training,Gait Training, Therapeutic Exercise,Balance Retraining,Post Op Education, Discharge Planning,Hot or Cold Pack,Neuromuscular Re-ed, Coordination Retraining,Manual Therapy Other Recommendations and Next Treatment LE ex, bed mob, transfers, Focus trial squat pivot allowance maintain TTWB LLE. Weight Bearing Status Weight Bearing Status Touch Down Weight Bearing Allowed Weight Bearing Amount (enter % LLE: touch down weight Bearing or #) (%) /flat foot Recommendations To Nursing Amount of Assist Needed 2 Person Assist Discharge Recommendations PT Discharge Recommendations SNF Rehab Transportation Needs at Discharge Wheelchair/Cabulance
[2022-09-02] MEDS: HYDROMORPHONE 1 MG INJ 0.5 MG IV (18:03)
[2022-09-02] MEDS: ATORVASTATIN 20 MG TABLET 40 MG PO (20:17)
[2022-09-02] MEDS: METOPROLOL ER 50 MG TABLET 100 MG PO (20:17)
[2022-09-02] MEDS: GABAPENTIN 600 MG TABLET PO (20:18)
[2022-09-02] MEDS: buPROPion SR 150 MG TAB PO (20:18)
[2022-09-02] MEDS: CLOPIDOGREL 75 MG TABLET PO (20:18)
[2022-09-02] MEDS: MELATONIN 3 MG TABLET 9 MG PO (20:18)
[2022-09-02] MEDS: DULOXETINE 30 MG CAPSULE 60 MG PO (20:18)
[2022-09-02] MEDS: diphenhydrAMINE 25 MG TABLET PO (20:21)
[2022-09-02] MEDS: INSULIN GLARGINE 100 UNIT/ML 3ML PEN 10 UNIT SUBCUT (20:22)
[2022-09-03] VITALS (10 sets, daily range): BP systolic 144–166; BP diastolic 66–69; PULSE 74–86; RESP 16–18; TEMP 36.2–36.6; O2SAT 97–98
[2022-09-03] MEDS: INSULIN LISPRO 100 UNIT/ML 3ML VIAL SUBCUT ×2 (08:36→12:10)
[2022-09-03] MEDS: ASPIRIN EC 81 MG TABLET PO (09:00)
[2022-09-03] MEDS: INSULIN LISPRO 100 UNIT/ML 3ML VIAL 10 UNIT SUBCUT (09:00)
[2022-09-03] MEDS: ACETAMINOPHEN 325 MG TABLET 975 MG PO (09:01)
[2022-09-03] MEDS: lisinopriL 10 MG TABLET PO (09:01)
--- NOTE | 2022-09-03 10:55 | OT.IP.TRT ---
Current Diagnoses Displaced trimalleolar fracture of left lower leg, initial encounter for closed fracture (08/30/22) Surgery Performed Operation Date: 08/31/22 09:30 Actual Procedures p ORIF trimaleolar Ankle Fracture(Left) - Pattie Delcid MD Occupational Therapy Treatment Note M2 OT-IP Current Condition Start: 09/02/22 18:06 Freq: Status: Active Protocol: Document 09/02/22 18:06 CGR (Rec: 09/02/22 18:41 CGR [id number]) Occupational Therapy Current Condition Current Condition Evaluation Date 09/02/22 Treatment Diagnosis R trimalleolar fx s/p ORIF Diagnosis Onset Date 08/30/22 Weight Bearing Status Weight Bearing Status Touch Down Weight Bearing M3 OT- IP Subjective and Pain Start: 09/02/22 18:06 Freq: Status: Active Protocol: Document 09/03/22 10:30 CCC (Rec: 09/03/22 13:10 CCC [id number]) OT- Subjective Occupational Therapy Visit Type Type Treatment Note Visit Start Time 10:30 Visit Stop Time 10:55 Total Visit Minutes 25 Occupational Therapy Visit Comments Patient Comments Pt wanting to use the bathroom . Patient/Caregiver Goals To get better. OT Pain Assessment Pain When Pain Assessed At Rest Pain Present Pain Present Pain Reported Location Left Ankle Intensity 5 Scale Used Numeric (0 - 10) M4 OT- IP ADL's Start: 09/02/22 18:06 Freq: Status: Active Protocol: Document 09/03/22 10:30 CCC (Rec: 09/03/22 13:10 CCC [id number]) OT ADL-Grooming General Evaluation Grooming Ability Standby Assistance Areas Needing Assistance Face Washing Comments OT Grooming Comments seated in chair OT ADL-Oral Care General Eval Oral Care Ability Standby Assistance Areas of Assistance Retrieving/Set-Up of Items Comments Oral Care Comments seated in chair OT ADL-Toileting General Evaluation Toileting Ability Moderate Assistance Areas Needing Assistance Manage Clothing Comments OT Toileting Comments Pt able to wipe appropriately while seated on the BSC and needing assist to help pull up the brief while standing with two person assist with FWW. M5 OT- IP IADL's Start: 09/02/22 18:06 Freq: Status: Active Protocol: Document 09/02/22 18:06 CGR (Rec: 09/02/22 18:41 CGR [id number]) OT-Instrumental Activities of Daily Living Deficits IADL Deficits Identified No Deficits Home Safety Awareness Awareness of Need for Assistance at Home Good Awareness Ability to Problem Solve Emergency Able to Problem Solve Situations Medication Management Medication Management No Deficits Identified Money Management Money Management No Deficits Identified Meal Preparation Meal Preparation Caregiver Provides Assist Leader Assembler Leader Assembler Caregiver Provides Assist Driving Driving Comments Pt's daughter drives M6 OT- IP Functional Cognition Start: 09/02/22 18:06 Freq: Status: Active Protocol: Document 09/03/22 10:30 [facility] (Rec: 09/03/22 13:10 [facility] [id number]) Cognitive Factors Limiting Selfcare Function Cognitive Ability Level of Alertness Alert Patient Orientation Name,Age,Birthday,Month,Date, Year,Day of Week,Place, Situation Attention Span Ability Capable of Focused Attention, Capable of Sustained Attention Cognitive Comments Cognitive Assessment Comments NO cognitive issues noted. M7 OT- IP Mobility and Balance Start: 09/02/22 18:06 Freq: Status: Active Protocol: Document 09/03/22 10:30 [facility] (Rec: 09/03/22 13:10 [facility] [id number]) OT- Bed Mobility Assessment Supine to Sit Supine to Sit Assist Contact Guard Assistance Sit to Supine Sit to Supine Assist Minimal Assistance OT-Transfer Assessment Sit to and From Stand Sit to and from Stand Moderate Assistance,2 Person Assistance Comments Mobility Comments Pt not able to transfer or move her feet when up on the feet with MODA X 2 and therefore had pt stand with FWW MODA X 2 while nursing aid able to switch out bed <>bsc. OT- Gait Assessment Comments Gait Ability Comments Pt only standing at this time OT- Balance Assessment Sitting Balance and Reactions Static Sitting Balance Ability Normal Dynamic Sitting Balance Ability Good Standing Balance and Reactions Static Standing Balance Ability Poor M8 OT- IP Objective Assessments Start: 09/02/22 18:06 Freq: Status: Active Protocol: Document 09/02/22 18:06 CGR (Rec: 09/02/22 18:41 CGR [id number]) OT Gross Range of Motion Upper Extremity Range of Motion Assessment Within Functional Limits OT Strength Upper Extremity Strength Assessment Within Functional Limits Comments Strength Comments 4+/5 OT- Coordination Assessment Upper Extremity Finger to Nose Test Within Functional Limits Finger Tapping Test Within Functional Limits OT-Muscle Tone Assessment Muscle Tone WNL Yes OT Sensation Assessment Edema Edema Absent M9 OT- IP Assessment and Plan Start: 09/02/22 18:06 Freq: Status: Active Protocol: Document 09/03/22 10:30 [facility] (Rec: 09/03/22 13:10 [facility] [id number]) OT Summary Assessment and Plan Potential Rehabilitation Potential Good Analytic Complexity at Evaluation Moderate Summary OT Impairments Pain,Balance,Functional Mobility,Grooming,Dressing, Toileting,Bathing,Toilet Transfers,Shower Transfers, Activity Tolerance Progress Towards Goals Progressing Toward Goals Assessment Summary Pt able to stand today with MODA AX 2 and having bed switched out for BSC. Pt able to wipe on her own while seated and needing assist for brief management needs. Pt looking to go to skilled rehab when medically stable. Goals Grooming Goal Independent Dressing Goal Independent Toileting Goal Independent Bathing Goal Independent Toilet Transfer Goal Independent Shower Transfer Goal Independent Days to Meet Goals 29 Frequency of Treatment Frequency Of Treatment Once a Day Treatment Plan OT Treatment Plan ADL Training,Functional Mobility,Patient/Family Education,Discharge Planning Discharge Recommendations OT Discharge Recommendations SNF Rehab Transportation Needs at Discharge Wheelchair/Cabulance
--- NOTE | 2022-09-03 10:56 | PT.IPTN ---
Current Diagnoses Displaced trimalleolar fracture of left lower leg, initial encounter for closed fracture (08/30/22) Surgery Performed Operation Date: 08/31/22 09:30 Actual Procedures p ORIF trimaleolar Ankle Fracture(Left) - Pattie Delcid MD Physical Therapy Treatment Note M2 PT-IP Current Condition Start: 08/31/22 16:28 Freq: NEEDED Status: Active Protocol: Document 09/02/22 14:05 SP (Rec: 09/02/22 18:50 SP [id number]) Physical Therapy Current Condition Current Condition Evaluation Date 08/31/22 Treatment Diagnosis GLF; L ankle fx s/p ORIF; difficulty in walking Onset Date 08/30/22 M3 PT-IP Subjective Start: 08/31/22 16:28 Freq: NEEDED Status: Active Protocol: Document 09/03/22 10:30 KS (Rec: 09/03/22 12:41 KS [id number]) Subjective Physical Therapy Visit Type Type Treatment Note Visit Start Time 10:30 Visit Stop Time 10:56 Total Visit Minutes 20 Notes Split treatment 10:30-10:44, 10:50-10:56 Partial co-treat w/ OT Number of LAUNDRY BAG PUNCH OPERATOR Visits 2 Physical Therapy Visit Comments Patient Comments Pt agreeable to working with therapy. Patient Goals going to rehab for strengthening Therapy Pain Assessment Pain When Pain Assessed During Mobility Pain Present Pain Present Pain Reported Location Right Ankle Intensity 5 Scale Used Numeric (0 - 10) Description With Movement Pain Management Techniques Distraction,Elevation, Modification of Treatment,Re- positioning Left Ankle Intensity 3 Scale Used Numeric (0 - 10) Description With Movement Pain Management Techniques Distraction,Elevation, Modification of Treatment,Re- positioning M4 PT-IP Mobility and Gait Start: 08/31/22 16:28 Freq: NEEDED Status: Active Protocol: Document 09/03/22 10:30 KS (Rec: 09/03/22 12:41 KS [id number]) PT-Bed Mobility Assessment Supine to Sit Supine to Sit Contact Guard Assistance,1 Person Assistance,Head of Bed Elevated,Bedrails Sit to Supine Sit to Supine Minimal Assistance,1 Person Assistance,Head of Bed Elevated,Bedrails PT-Transfer Assessment Sit to and From Stand Sit to and from Stand Moderate Assistance,Maximum Assistance,2 Person Assistance ,Use of Upper Extremities Equipment Transfer Assistive Device Gait Belt,Front Wheeled Walker Orthotic/Prosthetic Devices or Brace: Yes Transfers Transfer Destination Bed,Bedside Commode Transfer Technique Stand Pivot Transfer Ability Level of Assist Moderate Assistance,Maximum Assistance,2 Person Assistance ,Use of Upper Extremities Comments Mobility Comments Pt in bed upon arrival and agreeable to transfer to [facility] [place] [place]. Pt able to sit up EOB CGA w/ HOB raised. Required Mod/Max A x2 for sit<>stand w/ FWW - pt w/ posterior lean against bed frame for support needing max A to maintain standing balance. Pt took seated rest break and then performed additional sit<>Stand Mod/MAx Ax2 and DEHYDRATOR TENDER moved bed and placed BSC behind pt as pt not able to pivot R foot for transfer. After voiding, used same technique to place pt back in bed, DEHYDRATOR TENDER moved bed and BSC and pt maintained standing balance ~1min w/ FWW and Mod A x2. Pt required Min A for sit<>sup for LE elevation into bed. Gait Assessment Comments Gait Comments Unable to ambulate or pivot, sit<>stand only. PT-Balance Assessment Sitting Balance and Reactions Static Sitting Balance Ability Normal Dynamic Sitting Balance Ability Good Standing Balance and Reactions Static Standing Balance Ability Poor Dynamic Standing Balance Ability Poor Device Used FWW M5 PT-IP Objective Assessments Start: 08/31/22 16:28 Freq: NEEDED Status: Active Protocol: Document 08/31/22 14:55 AB (Rec: 08/31/22 16:47 AB [id number]) Orientation Orientation/Cognition Level of Alertness Alert Orientation Name,Place,Situation Language Function Ability No Deficits Noted Safety Awareness Decreased Safety Awareness Memory Description No Deficits Noted Gross Range of Motion Lower Extremity ROM Impairments L ankle on soft splint/cast Strength Lower Extremity Strength Hip 4-/5 Knee 4-/5 Ankle RLE: unable to test due to pain LLE: on soft cast Comments Strength Comments pt with c/o R ankle pain affecting ROM and strength Sensation Assessment Sensation Gross Sensation Right LE Impaired,Left LE Impaired Sensation Description Numbness Comments Sensation Comments has BLE neuropathy Muscle Tone Muscle Tone WNL Yes M6 PT-IP Treatment Start: 08/31/22 16:28 Freq: NEEDED Status: Active Protocol: Document 09/03/22 10:30 KS (Rec: 09/03/22 12:41 KS [id number]) Physical Therapy Treatment Exercises Exercises Ankle Pumps,Gluteal Sets, Straight Leg Raises Education Education Provided Weight Bearing Status,Safety M7 PT-IP Assessment and Plan Start: 08/31/22 16:28 Freq: NEEDED Status: Active Protocol: Document 09/03/22 10:30 KS (Rec: 09/03/22 12:41 KS [id number]) PT Summary Assessment and Plan Potential Rehabilitation Potential Fair Summary Impairments Pain,ROM,Strength,Balance, Coordination,Sensation,Tone, Cognition,Bed Mobility, Transfers,Gait,Activity Tolerance Progress Towards Goals Slow Progress due to Pain,Slow Progress due to Activity Tolerance,Slow Progress - Other Assessment Summary Pt w/ some improvement, requiring Min A for bed mobility and Mod/Max A x2 for sit<>Stand. She is still unable to pivot for transfers and lacks UE strength to advance LE forward. She required Mod A to maintain standing balance due to posterior lean. She is limited by TTWB, pain, weakness, poor balance, and low tolerance for actviity. She will require SNF to improve functional mobility independence and strength. Goals Bed Mobility Goal Standby Assistance Transfer Goal Standby Assistance,Front Wheeled Walker,Slide Board Gait Goal Standby Assistance,Front Wheel Walker Gait Distance 50 Days to Meet Goals 10 Frequency of Treatment Frequency Of Treatment Twice a Day Treatment Plan Physical Therapy Treatment Plan Bed Mobility Training,Transfer Training,Gait Training, Therapeutic Exercise,Balance Retraining,Post Op Education, Discharge Planning,Hot or Cold Pack,Neuromuscular Re-ed, Coordination Retraining,Manual Therapy Other Recommendations and Next Treatment LE ex, bed mob, transfers, Focus trial squat pivot allowance maintain TTWB LLE. Weight Bearing Status Weight Bearing Status Touch Down Weight Bearing Allowed Weight Bearing Amount (enter % LLE: touch down weight Bearing or #) (%) /flat foot Recommendations To Nursing Amount of Assist Needed 2 Person Assist Discharge Recommendations PT Discharge Recommendations SNF Rehab Transportation Needs at Discharge Wheelchair/Cabulance
--- NOTE | 2022-09-03 11:02 | PM.DS.1 ---
History of Present Illness History of Present Illness Date Patient Seen: 09/03/22 Time Patient Seen: 10:55 Chief complaint: fell yesterday injured feet and ankles ,blood thi Narrative: This is a very pleasant 67-year-old female who is followed by Dr. Karis Orozco.? Patient has a history of type 1 diabetes with insulin pump, coronary artery disease, peripheral vascular disease, hyperlipidemia, depression, anxiety.? Patient presents emergency department this morning due to ankle pain.? Apparently she awakened yesterday morning at 7:00 a.m. and went to the bathroom and the next thing she knew she would fallen on the bathroom floor and felt very tired and lethargic.? She would difficulty getting up but she forced herself to get up and then she started getting dressed when she suddenly started falling backwards and could not stop herself and hurt both of her ankles.? She was unable to get up on her own and then presented to the ER for evaluation.? She was found to have a trimalleolar fracture of her left ankle.? Orthopedics was consulted and they plan to do surgery on her in the morning.? She is also having right ankle pain which she states she injured as well.? The patient has been in her usual state of health until several weeks ago she began having increase in falls.? She states that she just will feel like her legs can not hold her up and she will start falling backwards and she can not stop herself.? She then has difficulty getting up.? She is had approximately 3 episodes in the last 2-3 weeks where she is been walking and she just follows sudden feels very weak and she falls to the ground or she sits down.? She was walking to the store recently and was unable to get up and had to call her daughter.? She saw her primary care provider who decreased her gabapentin and this helped with the dizziness but not with the weakness.? She states it does not feel like low blood sugar. Discharge Providers Provider Date of admission: 08/30/22 17:03 Discharge Date: 09/02/22 Consults: 08/30/22 20:44 Consult to Physical Therapy Evaluate & Treat Comment: vertigo; left ankle fracture Physician Instructions: Evaluate and Treat 08/31/22 11:12 Consult to Discharge Planning Routine Comment: home vs snf Consult to Physical Therapy Evaluate & Treat Comment: flat foot or TT WB LLE in splint Physician Instructions: Evaluate and Treat Consult to Respiratory Therapy Evaluate & Treat Comment: Physician Instructions: Evaluate and treat Discharge provider: Eduardo Evans, Summary Hospital Course Discharge Diagnosis: 1. Right Trimalleolar fracture which required surgical fixation s/p ORIF.? Pain improving.? She was able to get up with therapy.? Therapies have recommended SNF. 2.? Frequent falls with possible syncopal episodes Suspect symptoms are multifactorial with no obvious etiology at this time Head CT was negative on admission.? Echocardiogram completed this morning with results pending.? Await carotid ultrasound.? TSH was normal at 1.18.? One of the falls sounds as though it was vasovagal when she was on the toilet.? The other 2 are more difficult to determine.? She had no warning prior to those falls and describes it as feeling as though her legs became weak and gave out.? No symptoms when working with therapies. 3. EJN Baseline creatinine appears to be between 0.99 and 1.04.? On admission, creatinine was 1.23.? Today it is 1.05.? Will monitor. 4.? Type 1 diabetes on insulin pump Blood sugars have been in the mid-200s since her pump was d/c'd yesterday.? Will give Lantus 10 units now and 10 units tonight.? She typically uses prandial bolus as well.? Basal rate on pump is 1.1 u/hr.? Unfortunately, she was still on her pump yesterday when I saw her so I didn't adjust the Lantus.? weapons officer was notified and pump was subsequently d/c'd.? ?? 5.? Hypertension currently elevated BPs improved on her usual dose of metoprolol and lisinopril.? ? 6. Peripheral neuropathy Continue usual outpatient dose of gabapentin 7.?Coronary artery disease Patient does not have a local speaker mounter but will establish with 1 after discharge 8.? Peripheral vascular disease status post stenting Continue Plavix and atorvastatin 9. Depression/anxiety Continue bupropion and duloxetine Hospital Course: 67-year-old female? with type 1 diabetes with insulin pump, coronary artery disease, peripheral vascular disease, hyperlipidemia, depression, anxiety presently hospital day #2 and POD #1 admitted? w/a right trimalleolar fx after a fall. Patient underwent operative repair of her ankle fracture on 08/31.?Required monitoring of her DM1 due to elevated BG post op. Normally she uses an insulin pump at home. Had JEN which resolved. PT eval recommending SNF. Ortho put on ASA BID for 6 weeks for DVT prophylaxis. Patient improved medically and able to dc to SNF on 09/03. Time Spent with Patient Time spent: Greater than 30 minutes Exam Vital Signs (past 8 hours): - 09/02/22 01:00 09/02/22 01:00 09/02/22 05:00 Temperature Pulse Rate Respiratory Rate Blood Pressure Pulse Oximetry 97 95 95 Oxygen Delivery Method Room Air Room Air Room Air Oxygen Flow Rate 09/02/22 03:36 09/02/22 07:50 09/02/22 08:26 Temperature 97 F L 97.2 F L Pulse Rate 82 71 71 Respiratory Rate 19 16 Blood Pressure 183/82 H 164/71 H 164/71 H Pulse Oximetry 99 96 Oxygen Delivery Method Oxygen Flow Rate 0 Oxygen Delivery Method Room Air Oxygen Flow Rate 0 Narrative Exam Narrative: GEN:? Pleasant middle-aged female, Alert and oriented x 3, comfortable appearing HEENT:NC, Face symmetric CHEST: Respiratory excursions symmetric, CTAB CV: RRR, no M/R/G ABD: Soft, NT/ND, BT present in all 4 quadrants, body habitus limits exam EXTR: warm, well perfused, no C/C/E, left lower extremity in postoperative cast SKIN: warm and dry, no rash NEURO: Alert and oriented x 3, nonfocal Objective Labs Result Diagrams: 09/02/22 06:11 09/02/22 06:11 Labs: Laboratory Results - last 24 hr 09/01/22 09/01/22 09/02/22 10:15 10:15 06:11 WBC 7.3 6.2 RBC 3.78 L 3.74 L Hgb 11.8 L 11.7 L Hct 34.1 L 33.8 L MCV 90.2 D 90.1 MCH 31.2 31.2 MCHC 34.6 34.6 RDW 12.9 13.0 Plt Count 206 229 Neut % (Auto) 73.8 68.3 Lymph % (Auto) 16.6 L 20.5 L Mccreary % (Auto) 7.6 7.9 Eos % (Auto) 1.5 L 2.2 Baso % (Auto) 0.5 1.1 Neut # (Auto) 5400 4200 Lymph # (Auto) 1200 1300 Mccreary # (Auto) 600 500 Eos # (Auto) 100 100 Baso # (Auto) 0 100 Sodium 133 L Potassium 4.0 Chloride 96 L Carbon Dioxide 28 BUN 13 Creatinine 1.05 H Estimated GFR 59 L BUN/Creatinine Ratio 12.4 Glucose 259 H Calcium 8.3 L Magnesium 1.5 L Total Bilirubin 0.6 AST 22 ALT 12 Alkaline Phosphatase 75 Total Protein 6.2 L Albumin 3.1 L Globulin 3.1 Albumin/Globulin Ratio 1.0 09/02/22 06:11 WBC RBC Hgb Hct MCV MCH MCHC RDW Plt Count Neut % (Auto) Lymph % (Auto) Mccreary % (Auto) Eos % (Auto) Baso % (Auto) Neut # (Auto) Lymph # (Auto) Mccreary # (Auto) Eos # (Auto) Baso # (Auto) Sodium 135 L Potassium 3.9 Chloride 99 Carbon Dioxide 31 BUN 16 Creatinine 1.10 H Estimated GFR 55 L BUN/Creatinine Ratio 14.5 Glucose 275 H Calcium 8.3 L Magnesium 1.7 Total Bilirubin 0.5 AST 23 ALT 9 Alkaline Phosphatase 86 Total Protein 6.1 L Albumin 3.0 L Globulin 3.1 Albumin/Globulin Ratio 1.0 [facility] Medical History Coronary artery disease No significant medical problems Type 1 diabetes Social History marital status: details: 7 years ago yesterday household members: family and children lives independently: No (Lives with her daughter) Smoking Status: Never smoker alcohol intake: current Discharge Plan Discharge Plan Patient Disposition: SNF Transfer to: [facility] Provider Discharge Comment: You were admitted for a fall which caused right ankle fracture. This was repaired by ortho and you will now need to be on aspirin twice daily for 6 weeks to prevent a clot in your leg, then after may continue aspirin 1 pill daily. Please follow-up with ortho in clinic in 3 weeks. I certify the postop [facility] care is medically necessary on a continuing basis for any conditions for which he/ she received care during this hospitalization.: Yes The receiving facility has agreed to accept transfer and provide medical treatment.: Yes Discharge orders & Medications Prescriptions: New acetaminophen 325 mg Tablet 975 mg PO Q8H PRN (Reason: Pain, Mild (1-3)) Qty: 30 0RF polyethylene glycol 3350 [Miralax] 17 gram powder in packet 17 g PO DAILY PRN (Reason: constipation) Qty: 14 0RF senna 8.6 mg capsule 8.6 mg PO DAILY PRN (Reason: constipation) Qty: 30 0RF aspirin 81 mg tablet,chewable 81 mg PO BID 42 Days Qty: 84 0RF Continued bupropion HCl 150 mg tablet sustained-release 12 hr 150 mg PO DAILY gabapentin 600 mg tablet 600 mg PO DAILY metoprolol succinate 100 mg tablet extended release 24 hr 100 mg PO DAILY clopidogrel 75 mg tablet 75 mg PO DAILY lisinopril 10 mg tablet 10 mg PO DAILY insulin lispro [Humalog U-100 Insulin] 100 unit/mL solution 55 unit SUBCUT DAILY MDD 55 PRN (Reason: Hyperglycemia) Label Comments: INJECT UP TO 55 UNITS PER DAY VIA INSULIN PUMP rosuvastatin 20 mg tablet 20 mg PO DAILY duloxetine 60 mg capsule,delayed release(DR/EC) 60 mg PO DAILY Diet/Activity/Treatments Activity: Weightbear as tolerated in the right ankle. Will order stirrup brace that she can use weight-bearing on the right side. Does not need to wear it in bed. Discussed the importance of working on Achilles stretching for her right side Restarted on her aspirin and Plavix. Will do aspirin 81 b.i.d. for 6 weeks then can go back down to her baseline 81 daily Follow-up orthopedic clinic in 3 weeks for suture removal. Discharge Data Attending Provider: Eduardo Evans VTE Deep Vein Thrombosis/Pulmonary Embolism Present on Admission: No
--- NOTE | 2022-09-03 11:25 | CM.DPNOTE ---
Emailed last of referral information to [facility] per Marbella Clements. Patient to be picked up between 13 & 1330. I also called [facility] and left a vm with Av requesting to cancel home health request. Kat Rendon CM Assist.
[2022-09-03 12:40] LABS: COVID19 -Nasal RAPID Negative (Negative)
--- NOTE | 2022-09-03 15:12 | PC.NURSE ---
Pt is A&OX3. VSS, afebrile on RA. Cast to L LE intact +CMS to toes. Ankle stirup brace to R ankle. She reports pain is minimal 2/10 when lying in bed but it escalates to 10/10 with getting up to standing. She is toe touch weight bearing to LLE, but she reports pain with standing on RLE. She is encourage to press weight through upper arms while standing and working with PT/OT. She is medically cleared for discharge to SNF, and is accepted to [facility]. CM arranged transport for fiber picker at 1500 today. COVID negative. Report called to [facility] receiving nurse.
== END 2022-09-03 15:30 | DRG 494 ==
LOC: ED 12:04 → AC 17:04
PROVIDERS: Emergency Medicine; Family Medicine; Orthopaedic Surgery Foot and Ankle Surgery; Admitting Provider Internal Medicine; Emergency Provider Physician Assistant; Referring Provider Physician Assistant; Visit Provider Student in an Organized Health Care Education/Training Program
PROC: 0QSK04Z Reposition Left Fibula with Internal Fixation Device, Open Approach (ICD-10-PCS; principal; 2022-08-31 09:30)
DX: S82.852A Displaced trimalleolar fracture of left lower leg, initial encounter for closed fracture (principal); I10 Essential (primary) hypertension; E10.42 Type 1 diabetes mellitus with diabetic polyneuropathy; I25.10 Atherosclerotic heart disease of native coronary artery without angina pectoris; I73.9 Peripheral vascular disease, unspecified; F32.A Depression, unspecified; F41.9 Anxiety disorder, unspecified; M25.571 Pain in right ankle and joints of right foot; R29.6 Repeated falls; R55 Syncope and collapse; E78.5 Hyperlipidemia, unspecified; W18.30XA Fall on same level, unspecified, initial encounter; Z95.5 Presence of coronary angioplasty implant and graft; Z79.01 Long term (current) use of anticoagulants; Z20.822 Contact with and (suspected) exposure to COVID-19; Z66 Do not resuscitate; Z96.41 Presence of insulin pump (external) (internal)
CPT/HCPCS: 36415; 70450; 71045; 72125; 73600; 73610; 76000; 80053; 82550; 82553; 82962; 83690; 83735; 84443; 84484; 84550; 85025; 87635; 93005; 93880; 97162; 97166; 97530; 97535; 99283; 99284; C9803; C1713; C8929; J0171; J0690; J1170; J1815; J2405; J2704; J3010; Q9957

== ENCOUNTER 2022-12-27 11:04 | Emergency (ER) | payer MEDICARE, SELFPAY ==
[2022-08-30 18:32] VITALS: BMI 31.9
[2022-12-27] VITALS (17 sets, daily range): BP systolic 130–179; BP diastolic 61–79; PULSE 63–74; RESP 0–28; TEMP 36.2; O2SAT 88–100; BMI 27.8
--- NOTE | 2022-12-27 11:24 | DI.RAD.S_ITS ---
PROCEDURE: XR CHEST 1V INDICATIONS: chest pain TECHNIQUE: One view of the chest was acquired. COMPARISON: [facility], CR, XR CHEST 1V, 08/30/2022, 12:32. FINDINGS: Surgical changes and devices: None. Lungs and pleura: Lungs are clear. No pleural effusions or pneumothorax. Mediastinum: Mediastinal contours appear normal. Heart size is normal. Bones and chest wall: No suspicious bony lesions. Overlying soft tissues appear unremarkable. IMPRESSION: No acute cardiopulmonary findings. Dictated by: Maria E Al M.D. on 12/27/2022 at 11:58 Approved by: Maria E Al M.D. on 12/27/2022 at 11:58
--- NOTE | 2022-12-27 11:27 | DI.CT.S_ITS ---
PROCEDURE: CT HEAD/BRAIN WO CON INDICATIONS: syncope, vision loss. TECHNIQUE: Noncontrast 4.5 mm thick angled axial sections acquired from the foramen magnum to the vertex, with coronal and sagittal reformats. For radiation dose reduction, the following was used: automated exposure control, adjustment of mA and/or kV according to patient size. COMPARISON: [facility], CT, CT HEAD/BRAIN WO CON, 08/30/2022, 12:56. FINDINGS: Image quality: Excellent. CSF spaces: Basal cisterns are patent. No extra-axial fluid collections. The ventricles are symmetric in size and shape. Brain: No intracranial bleeds or masses. There is mild cerebral volume loss for age, with resultant ventricular and sulcal prominence. There are moderate periventricular and deep white matter chronic small vessel ischemic changes. There is intracranial internal carotid artery atherosclerosis. Skull and face: Calvarium and visualized facial bones appear intact, without suspicious lesions. Sinuses: Visualized sinuses and mastoids are clear. IMPRESSION: No acute intracranial finding. Dictated by: Guille Tyler M.D. on 12/27/2022 at 12:34 Approved by: Guille Tyler M.D. on 12/27/2022 at 12:34
--- NOTE | 2022-12-27 11:27 | DI.CT.S_ITS ---
PROCEDURE: CT ANGIO HEAD AND NECK INDICATIONS: vision loss eye, intermittent syncope TECHNIQUE: Pre-contrast 4.5 mm thick sections acquired from the foramen magnum to the vertex. After the administration of intravenous contrast, 1 mm thick sections acquired from the aortic arch through the [place] of [place]. Post-contrast 4.5 mm thick sections then re-acquired from the foramen magnum to the vertex. 3-dimensional jazmlvi-qycojrbpw-ggrsyduozr (MIP) and/or volume rendering reformats were acquired of the central intracranial vasculature and neck separately. For radiation dose reduction, the following was used: automated exposure control, adjustment of mA and/or kV according to patient size. COMPARISON: None. FINDINGS: Image quality: Excellent. BRAIN: CSF spaces: Ventricles are normal in size and shape. Basal cisterns are patent. No extra-axial fluid collections. Brain: No midline shift. No intracranial bleeds or masses. Garces-white matter interface appears intact. Skull and face: Calvarium and facial bones appear intact, without suspicious lesions. Orbits appear normal. Sinuses: Mild diffuse paranasal sinus mucosal thickening. HEAD CT ANGIOGRAPHY: Anterior circulation: Intracranial internal carotid arteries are normal in size and flow. The flow within the paired anterior cerebral arteries is normal and symmetric. The flow within the middle cerebral arteries is normal and symmetric. The anterior communicating artery is seen. No aneurysms are seen. Atherosclerotic calcifications noted at the carotid siphons. Posterior circulation: Visualized portions of the vertebral arteries demonstrate normal caliber, and join to form a normal appearing basilar artery. Flow within the posterior cerebral arteries is normal and symmetric. No aneurysms are seen. NECK CT ANGIOGRAPHY: Carotid system: The aortic arch and bilateral common carotid arteries are widely patent. Both carotid bifurcations are widely patent with only minimal atherosclerotic plaque present. Extracranial internal carotid arteries appear widely patent. Posterior circulation: The origins of the vertebral arteries both appear widely patent. The more superior extracranial portions of both vertebral arteries also demonstrate normal courses and calibers. They join to form a normal appearing basilar artery. Soft tissues: Visualized neck soft tissues demonstrate no suspicious abnormalities. Bones: No suspicious bony lesions. Visualized cervical spine appears normally aligned. IMPRESSION: No hemodynamically significant stenosis or occlusion of the major intracranial or cervical arterial vasculature. Bilateral of the [place] neck arteries and carotid termini are widely patent. Any quantitative measurements of stenosis were performed using NASCET criteria. Dictated by: Guille Tyler M.D. on 12/27/2022 at 12:35 Approved by: Guille Tyler M.D. on 12/27/2022 at 12:39
[2022-12-27 11:30] LABS: Add Manual Diff / Slide Review NO; Basophils Absolute Auto 100 /uL (0-100); Basophils Percent Auto 0.8 % (0-2); Eosinophils Absolute Auto 200 /uL (0-450); Eosinophils Percent Auto 3.4 % (2-4); Hematocrit 44.4 % (36-46); Lymphocytes Absolute Auto 1500 /uL (1100-4500); Lymphocytes Percent Auto 20.9 % (25-40); Mean Corpuscular HGB Conc 33.8 % (30-36); Mean Corpuscular Hemoglobin 30.6 PG (26-34); Mean Corpuscular Volume 90.6 fL (80-100); Monocytes Absolute Auto 500 /uL (0-900); Monocytes Percent Auto 6.4 % (3-14); Neutrophils Absolute Auto 5000 /uL (1500-7000); Neutrophils Percent Auto 68.5 % (50-75); Platelet Count 317 X10^3/uL (150-400); Red Cell Distribution Width 13.1 % (11.6-14.8); White Blood Cell Count 7.3 X10^3/uL (4.5-11.0)
[2022-12-27 11:39] LABS: PTT Partial Thromboplastin Tim 31 SECONDS (26-36)
[2022-12-27 11:45] LABS: Alanine Aminotransferase 28 IU/L (<35); Albumin 4.1 g/dL (3.5-5.0); Albumin Globulin Ratio 1.1 (1.0-2.8); Alkaline Phosphatase 101 U/L (38-126); Aspartate Aminotransferase 44 IU/L (14-36); BUN Creatinine Ratio 9.4 (6-22); Bilirubin Total 0.5 mg/dL (0.2-1.3); Blood Urea Nitrogen 12 mg/dL (7-17); Calcium 8.8 mg/dL (8.4-10.2); Carbon Dioxide 31 mmol/L (22-32); Chloride 99 mmol/L (98-107); Creatine Kinase 81 U/L (30-135); Estimated Glomerular Filt Rate 47 mL/min (>60); Globulin 3.9 g/dL (1.7-4.1); Glucose 110 mg/dL (80-110); HEMOLYSIS < 15 (0-50); Lipase 22 U/L (23-300); Potassium 3.8 mmol/L (3.4-5.1); Sodium 140 mmol/L (137-145)
[2022-12-27 12:13] LABS: Troponin I < 0.012 ng/mL (0.01-0.034)
--- NOTE | 2022-12-27 12:18 | ED_ITS ---
HPI - Syncope General Chief Complaint: Syncope Stated Complaint: Sent by DR hopson passing out losing vision T-5 Time Seen by Provider: 12/27/22 11:27 Source: patient Mode of arrival: Family Vehicle Limitations: no limitations History of Present Illness HPI narrative: This is a 67-year-old with complaint of intermittent episodes of syncope as well as vision change. Patient states typically episodes will happen she will wake up in the middle the night be sitting on the edge of her bed getting ready to get up and wakes up on the floor. She states it has been happening with increasing frequency in his happen 10 times in the last week. She states it is happened a few times during the daytime but is more consistent at night. 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 It is not clearly associated with her loss of consciousness episodes. She denies headaches. She denies chest pain, no shortness of breath, no nausea or vomiting no numbness, tingling or weakness. She does have some occasional neck pain on the left states her both her arms fe els sort of hard to lift. She states that has been going on for 2 or 3 months. She states no issues with bowel movements or urination. She did have loss of bowel and bladder control the 1st time this happened which was August 29 or 2021. She states she has not had any other incontinence issues since then. Patient takes medication for anxiety, depression, Plavix she is now off aspirin, she takes lisinopril and metoprolol, rosuvastatin. Patient states she is had 2 heart attacks, she is had cardiac stents and has a stent in her right groin. Patient states prior hysterectomy and had an ankle fracture with repair several months ago when she had episode where she passed out broke her ankle. No tobacco, no alcohol, no illicit. Her primary is in [place]. Related Data Home Medications Medication Instructions Recorded Confirmed bupropion HCl 150 mg tablet,12 hr 150 mg PO DAILY 08/30/22 08/30/22 sustained-release clopidogrel 75 mg tablet 75 mg PO DAILY 08/30/22 08/30/22 duloxetine 60 mg capsule,delayed 60 mg PO DAILY 08/30/22 08/30/22 release gabapentin 600 mg tablet 600 mg PO DAILY 08/30/22 08/30/22 insulin lispro 100 unit/mL 55 unit SUBCUT DAILY PRN 08/30/22 08/30/22 subcutaneous solution (Humalog Hyperglycemia U-100 Insulin) lisinopril 10 mg tablet 10 mg PO DAILY 08/30/22 08/30/22 metoprolol succinate 100 mg 100 mg PO DAILY 08/30/22 08/30/22 tablet,extended release 24 hr rosuvastatin 20 mg tablet 20 mg PO DAILY 08/30/22 08/30/22 Previous Rx's Medication Instructions Recorded acetaminophen 325 mg tablet 975 mg PO Q8H PRN Pain, Mild (1-3) 09/03/22 #30 tabs polyethylene glycol 3350 17 gram 17 g PO DAILY PRN constipation #14 09/03/22 oral powder packet (Miralax) ea sennosides 8.6 mg capsule (senna) 8.6 mg PO DAILY PRN constipation 09/03/22 #30 caps Allergies Allergy/AdvReac Type Severity Reaction Status Date / Time hydrocodone Allergy Intermediate Verified 09/02/22 12:12 morphine AdvReac Mild Hallucinati Verified 08/30/22 18:54 ng codeine AdvReac Verified 08/31/22 08:51 meperidine [From Demerol] AdvReac Verified 08/31/22 08:51 oxycodone Allergy Intermediate Uncoded 09/02/22 12:12 Review of Systems Review of Systems ROS Unobtainable: All systems reviewed & are unremarkable except as noted in HPI and below Patient History Medical History Coronary artery disease No significant medical problems Type 1 diabetes Social History marital status: details: 7 years ago yesterday household members: family and children lives independently: No (Lives with her daughter) Smoking Status: Never smoker alcohol intake: current Smoking Status: Never smoker alcohol intake frequency: holidays/special occasions only Substance Use Type: does not use Exam Narrative Exam Narrative: GEN: well nourished, well appearing female, alert and oriented x 3, patient appears to be in mild distress. HEENT: Atraumatic, pupils are equal round reactive to light, extraocular movements are intact, nares are clear, TMs are clear with no fluid, there is no conjunctival pallor. Throat is clear without any exudates, erythema, tonsillar enlargement or uvular deviation, mild facial droop on the right HEART: Regular rate and rhythm without murmur, clicks, rubs. No carotid bruits, pulses are equal in upper and lower extremities LUNGS:Lungs clear to auscultation, no wheezes, rales, crackles, chest moves symmetrically ABD:bowel sounds normal, soft, non-tender, no guarding, rebound, rigidity, no masses noted, no hepatosplenomegaly :No CVA tenderness MSCL: Non-tender, no muscle atrophy, muscles strength 5/5 upper and lower extremities, full range of motion, normal gait NEURO:CN 2-12 intact, sensation normal, finger nose finger test normal, heel mcclain test normal, romberg normal, patient has mild intention tremor particularly left upper extremity Initial Vital Signs Initial Vital Signs: Vital Signs Temperature 97.2 F L 12/27/22 11:25 Pulse Rate 71 12/27/22 11:25 Respiratory Rate 19 12/27/22 11:25 Blood Pressure 148/68 H 12/27/22 11:25 Pulse Oximetry 99 12/27/22 11:25 Oxygen Delivery Method 12/27/22 11:25 Scores NIH Stroke Scale Level of Conciousness: Alert, keenly responsive Ask month/age: Answers both questions correctly. Open/close eyes, close hand: Performs both tasks correctly Best gaze horizontal: Normal Visual paul: No visual loss Facial palsy: Normal symetrical movement Left arm drift: No drift for full 10 sec Right arm drift: No drift for full 10 sec Left leg drift: No drift for full 5 sec Right leg drift: No drift for full 5 sec Limb ataxia: Absent Sensory on face/arms/legs: Normal, no sensory loss Best language: No aphasia, normal Dysarthria: Normal Extinction or inattention: No abnormality Total NIH Stroke scale score: 0 Course Orders Ordered: ED Orders 12/27/22 11:23 BNP [NT-proBNP (BNP-Adult 18+)] Stat Complete Blood Count AUTO DIFF Stat Comprehensive Metabolic Panel Stat Lipase Stat Magnesium Stat Partial Thromboplastin Time Stat Prothrombin Time INR Stat Troponin & CK Cardiac Panel Stat 12/27/22 11:24 XR chest 1V Stat 12/27/22 11:27 CT angio head and neck Stat CT head/brain wo con Stat 12/27/22 11:31 EKG-12 Lead Stat 12/27/22 13:28 Trop I [Troponin I] Stat 12/27/22 13:47 COVID19 -Nasal RAPID/Pre-Proc Stat Vital Signs Vital signs: Vital Signs - 8 hr 12/27/22 11:25 12/27/22 14:51 12/27/22 11:26 Temperature 97.2 F L Pulse Rate 71 66 Pulse Rate [Orthostatic Lying] 70 Pulse Rate [Orthostatic Sitting] 70 Pulse Rate [Orthostatic Standing] 73 Respiratory Rate 19 9 L Blood Pressure 148/68 H Blood Pressure [Orthostatic Lying] 158/69 H Blood Pressure [Orthostatic Sitting] 136/63 Blood Pressure [Orthostatic Standing] 130/61 Pulse Oximetry 99 99 Oxygen Delivery Method Room Air 12/27/22 11:30 12/27/22 11:30 12/27/22 12:07 Temperature Pulse Rate 66 69 Pulse Rate [Orthostatic Lying] Pulse Rate [Orthostatic Sitting] Pulse Rate [Orthostatic Standing] Respiratory Rate 28 H Blood Pressure 135/73 Blood Pressure [Orthostatic Lying] Blood Pressure [Orthostatic Sitting] Blood Pressure [Orthostatic Standing] Pulse Oximetry 99 98 Oxygen Delivery Method 12/27/22 12:08 12/27/22 12:08 12/27/22 12:30 Temperature Pulse Rate 69 63 Pulse Rate [Orthostatic Lying] Pulse Rate [Orthostatic Sitting] Pulse Rate [Orthostatic Standing] Respiratory Rate 10 L 12 Blood Pressure 179/74 H Blood Pressure [Orthostatic Lying] Blood Pressure [Orthostatic Sitting] Blood Pressure [Orthostatic Standing] Pulse Oximetry 99 99 Oxygen Delivery Method 12/27/22 13:00 12/27/22 13:01 12/27/22 13:01 Temperature Pulse Rate 64 64 Pulse Rate [Orthostatic Lying] Pulse Rate [Orthostatic Sitting] Pulse Rate [Orthostatic Standing] Respiratory Rate 19 12 Blood Pressure 152/79 H Blood Pressure [Orthostatic Lying] Blood Pressure [Orthostatic Sitting] Blood Pressure [Orthostatic Standing] Pulse Oximetry 99 100 Oxygen Delivery Method 12/27/22 13:30 12/27/22 13:30 12/27/22 14:00 Temperature Pulse Rate 64 Pulse Rate [Orthostatic Lying] Pulse Rate [Orthostatic Sitting] Pulse Rate [Orthostatic Standing] Respiratory Rate 6 L Blood Pressure 162/70 H 160/70 H Blood Pressure [Orthostatic Lying] Blood Pressure [Orthostatic Sitting] Blood Pressure [Orthostatic Standing] Pulse Oximetry 99 Oxygen Delivery Method 12/27/22 14:00 12/27/22 14:30 12/27/22 14:31 Temperature Pulse Rate 64 66 Pulse Rate [Orthostatic Lying] Pulse Rate [Orthostatic Sitting] Pulse Rate [Orthostatic Standing] Respiratory Rate 14 0 L Blood Pressure 174/75 H Blood Pressure [Orthostatic Lying] Blood Pressure [Orthostatic Sitting] Blood Pressure [Orthostatic Standing] Pulse Oximetry 100 96 Oxygen Delivery Method 12/27/22 14:31 12/27/22 14:45 12/27/22 14:45 Temperature Pulse Rate 66 69 Pulse Rate [Orthostatic Lying] Pulse Rate [Orthostatic Sitting] Pulse Rate [Orthostatic Standing] Respiratory Rate 2 L 14 Blood Pressure 158/69 H Blood Pressure [Orthostatic Lying] Blood Pressure [Orthostatic Sitting] Blood Pressure [Orthostatic Standing] Pulse Oximetry 97 100 Oxygen Delivery Method 12/27/22 14:46 12/27/22 14:46 12/27/22 14:48 Temperature Pulse Rate 71 74 Pulse Rate [Orthostatic Lying] Pulse Rate [Orthostatic Sitting] Pulse Rate [Orthostatic Standing] Respiratory Rate 14 17 Blood Pressure 136/63 Blood Pressure [Orthostatic Lying] Blood Pressure [Orthostatic Sitting] Blood Pressure [Orthostatic Standing] Pulse Oximetry 100 99 Oxygen Delivery Method 12/27/22 14:48 12/27/22 15:00 12/27/22 15:00 Temperature Pulse Rate 66 Pulse Rate [Orthostatic Lying] Pulse Rate [Orthostatic Sitting] Pulse Rate [Orthostatic Standing] Respiratory Rate 13 Blood Pressure 130/61 162/70 H Blood Pressure [Orthostatic Lying] Blood Pressure [Orthostatic Sitting] Blood Pressure [Orthostatic Standing] Pulse Oximetry 88 L Oxygen Delivery Method MDM - Syncope Lab Data 12/27/22 11:23 12/27/22 11:23 Labs: Lab Results 12/27/22 12/27/22 12/27/22 Range/Units 11:23 11:23 11:23 WBC 7.3 (4.5-11.0) X10^3/uL RBC 4.90 (4.0-5.2) X10^6/uL Hgb 15.0 (12.0-16.0) g/dL Hct 44.4 (36-46) % MCV 90.6 (80-100) fL MCH 30.6 (26-34) PG MCHC 33.8 (30-36) % RDW 13.1 (11.6-14.8) % Plt Count 317 (150-400) X10^3/uL Neut % (Auto) 68.5 (50-75) % Lymph % (Auto) 20.9 L (25-40) % [place] % (Auto) 6.4 (3-14) % Eos % (Auto) 3.4 (2-4) % Baso % (Auto) 0.8 (0-2) % Neut # (Auto) 5000 (5983-8281) /uL Lymph # (Auto) 1500 (9400-3288) /uL [place] # (Auto) 500 (0-900) /uL Eos # (Auto) 200 (0-450) /uL Baso # (Auto) 100 (0-100) /uL PT 12.0 (10.1-12.7) SECONDS INR 1.0 (0.9-1.3) APTT 31 (26-36) SECONDS Sodium 140 (137-145) mmol/L Potassium 3.8 (3.4-5.1) mmol/L Chloride 99 (98-107) mmol/L Carbon Dioxide 31 (22-32) mmol/L BUN 12 (7-17) mg/dL Creatinine 1.27 H (0.52-1.04) mg/dL Estimated GFR 47 L (>60) mL/min BUN/Creatinine Ratio 9.4 (6-22) Glucose 110 (80-110) mg/dL Calcium 8.8 (8.4-10.2) mg/dL Magnesium 2.0 (1.6-2.3) mg/dL Total Bilirubin 0.5 (0.2-1.3) mg/dL AST 44 H (14-36) IU/L ALT 28 (<35) IU/L Alkaline Phosphatase 101 (38-126) U/L Total Creatine Kinase 81 (30-135) U/L CK-MB (CK-2) TNP CK-MB (CK-2) Rel Index TNP Troponin I < 0.012 (0.01-0.034) ng/mL NT-Pro-B Natriuret Pep (<125) pg/mL Total Protein 8.0 (6.3-8.2) g/dL Albumin 4.1 (3.5-5.0) g/dL Globulin 3.9 (1.7-4.1) g/dL Albumin/Globulin Ratio 1.1 (1.0-2.8) Lipase 22 L (23-300) U/L SARS-CoV-2 (PCR) (Negative) 12/27/22 12/27/22 12/27/22 Range/Units 11:23 13:28 13:47 WBC (4.5-11.0) X10^3/uL RBC (4.0-5.2) X10^6/uL Hgb (12.0-16.0) g/dL Hct (36-46) % MCV (80-100) fL MCH (26-34) PG MCHC (30-36) % RDW (11.6-14.8) % Plt Count (150-400) X10^3/uL Neut % (Auto) (50-75) % Lymph % (Auto) (25-40) % [place] % (Auto) (3-14) % Eos % (Auto) (2-4) % Baso % (Auto) (0-2) % Neut # (Auto) (0211-5572) /uL Lymph # (Auto) (7965-2678) /uL [place] # (Auto) (0-900) /uL Eos # (Auto) (0-450) /uL Baso # (Auto) (0-100) /uL PT (10.1-12.7) SECONDS INR (0.9-1.3) APTT (26-36) SECONDS Sodium (137-145) mmol/L Potassium (3.4-5.1) mmol/L Chloride (98-107) mmol/L Carbon Dioxide (22-32) mmol/L BUN (7-17) mg/dL Creatinine (0.52-1.04) mg/dL Estimated GFR (>60) mL/min BUN/Creatinine Ratio (6-22) Glucose (80-110) mg/dL Calcium (8.4-10.2) mg/dL Magnesium (1.6-2.3) mg/dL Total Bilirubin (0.2-1.3) mg/dL AST (14-36) IU/L ALT (<35) IU/L Alkaline Phosphatase (38-126) U/L Total Creatine Kinase (30-135) U/L CK-MB (CK-2) CK-MB (CK-2) Rel Index Troponin I < 0.012 (0.01-0.034) ng/mL NT-Pro-B Natriuret Pep 104 (<125) pg/mL Total Protein (6.3-8.2) g/dL Albumin (3.5-5.0) g/dL Globulin (1.7-4.1) g/dL Albumin/Globulin Ratio (1.0-2.8) Lipase (23-300) U/L SARS-CoV-2 (PCR) Positive H (Negative) Imaging Data CTA - brain/neck: Radiologist's Impression: Maribell Banerjee??67??F??1955 ? Allergy/Adv: hydrocodone, morphine, codeine, meperidine, [oxycodone] (More??) Close Head/Neck CTA (Signed) Guille Tyler - 12/27/[address] (Signed) Guille Tyler - 12/27/22 Chest X-Ray (Signed) Maria E Al - 12/27/22 Carotid Doppler Study (Signed) Bernardino Irving - 09/02/22 Ankle X-Ray (Signed) Joni Rutledge - 08/31/22 Telemetry Strips 08/30/22 Chest X-Ray (Signed) Jack Farrar - 08/30/[address] (Signed) Guille Tyler - 08/30/[address] (Signed) Joni Rutledge - 08/30/22 Ankle X-Ray (Signed) Bernardino Irving - 08/30/22 Ankle X-Ray (Signed) Bernardino Irving - 08/30/22 Mammogram Screening (Signed) Alfonso Echeverria - 11/05/21 Ribs X-Ray (Signed) Bernardino Irving - 04/07/[address] (Signed) Bernardino Irving - 04/07/21 Abdomen/Pelvis CT (Signed) Bernardino Irving - 01/14/21 Vascular Ultrasound (Signed) Dima Briones - 06/29/[address] (Signed) Bernardino Irving - 04/09/20 Hand X-Ray (Signed) Bernardino Irving - 04/09/[address] (Signed) Bernardino Irving - 04/09/20 Launch?[address] [address] [address] Scan Report Signed Patient: Maribell Banerjee MR#: [id number] : 1955 Acct:[id number] Age/Sex: 67 / F Date of Service: 12/27/22 Loc: ED Accession Number: [id number] ?? Procedure: CT angio head and neck Ordering Provider: Milla Oliveira D.O. PROCEDURE:? CT ANGIO HEAD AND NECK ? INDICATIONS:? vision loss eye, intermittent syncope ? TECHNIQUE:? Pre-contrast 4.5 mm thick sections acquired from the foramen magnum to the vertex.? After the administration of intravenous contrast, 1 mm thick sections acquired from the aortic arch through the [place] of [place].? Post-contrast 4.5 mm thick sections then re- acquired from the foramen magnum to the vertex.? 3-dimensional maximum-intensity- projection (MIP) and/or volume rendering reformats were acquired of the central intracranial vasculature and neck separately. For radiation dose reduction, the following was used:? automated exposure control, adjustment of mA and/or kV according to patient size.? ? COMPARISON:? None. ? FINDINGS:? Image quality:? Excellent.? ? BRAIN:? CSF spaces:? Ventricles are normal in size and shape.? Basal cisterns are patent.? No extra-axial fluid collections.? ? Brain:? No midline shift.? No intracranial bleeds or masses.? [place]-white matter interface appears intact.? ? Skull and face:? Calvarium and facial bones appear intact, without suspicious lesions.? Orbits appear normal.? ? Sinuses:? Mild diffuse paranasal sinus mucosal thickening. ? HEAD CT ANGIOGRAPHY:? Anterior circulation:? Intracranial internal carotid arteries are normal in size and flow.? The flow within the paired anterior cerebral arteries is normal and symmetric.? The flow within the middle cerebral arteries is normal and symmetric.? The anterior communicating artery is seen.? No aneurysms are seen.? Atherosclerotic calcifications noted at the carotid siphons. ? Posterior circulation:? Visualized portions of the vertebral arteries demonstrate normal caliber, and join to form a normal appearing basilar artery.? Flow within the posterior cerebral arteries is normal and symmetric.? No aneurysms are seen.? ? NECK CT ANGIOGRAPHY:? Carotid system:? The aortic arch and bilateral common carotid arteries are widely patent. ?Both carotid bifurcations are widely patent with only minimal atherosclerotic plaque present.? Extracranial internal carotid arteries appear widely patent. ? Posterior circulation:? The origins of the vertebral arteries both appear widely patent.? The more superior extracranial portions of both vertebral arteries also demonstrate normal courses and calibers.? They join to form a normal appearing basilar artery.? ? Soft tissues:? Visualized neck soft tissues demonstrate no suspicious abnormalities.? ? Bones:? No suspicious bony lesions.? Visualized cervical spine appears normally aligned.? IMPRESSION:? No hemodynamically significant stenosis or occlusion of the major intracranial or cervical arterial vasculature.? Bilateral of the [place] neck arteries and carotid termini are widely patent. ? Any quantitative measurements of stenosis were performed using NASCET criteria.? ? ? Dictated by: Guille Tyler M.D. on 12/27/2022 at 12:35 ? ? Approved by: Guille Tyler M.D. on 12/27/2022 at 12:39?? Chest x-ray: Radiologist's Impression: Maribell Banerjee??67??F??1955 ? Allergy/Adv: hydrocodone, morphine, codeine, meperidine, [oxycodone] (More??) Close Head/Neck CTA 12/27/[address] 12/27/22 Chest X-Ray (Signed) Maria E Al - 12/27/22 Carotid Doppler Study (Signed) Bernardino Irving - 09/02/22 Ankle X-Ray (Signed) Joni Rutledge - 08/31/22 Telemetry Strips 08/30/22 Chest X-Ray (Signed) Jack Farrar - 08/30/[address] (Signed) Guille Tyler - 08/30/[address] (Signed) Joni Rutledge - 08/30/22 Ankle X-Ray (Signed) Bernardino Irving - 08/30/22 Ankle X-Ray (Signed) Bernardino Irving - 08/30/22 Mammogram Screening (Signed) Alfonso Echeverria - 11/05/21 Ribs X-Ray (Signed) Bernardino Irving - 04/07/[address] (Signed) Bernardino Irving - 04/07/21 Abdomen/Pelvis CT (Signed) Bernardino Irving - 01/14/21 Vascular Ultrasound (Signed) Jose Brionesdiah - 06/29/[address] (Signed) AristidesBernardino - 04/09/20 Hand X-Ray (Signed) Aristides,Bernardino - 04/09/[address] (Signed) Aristides,Bernardino - 04/09/20 Launch?Image [address] [address] XRay Report Signed Patient: Maribell Banerjee MR#: [id number] : 1955 Acct:[id number] Age/Sex: 67 / F Date of Service: 12/27/22 Loc: ED Accession Number: [id number] ?? Procedure: XR chest 1V Ordering Provider: Milla Oliveira D.O. PROCEDURE:? XR CHEST 1V ? INDICATIONS:? chest pain ? TECHNIQUE:? One view of the chest was acquired.? ? COMPARISON:[facility], , XR CHEST 1V, 08/30/2022, 12:32. ? FINDINGS:? ? Surgical changes and devices:? None.? ? Lungs and pleura:? Lungs are clear.? No pleural effusions or pneumothorax.? ? Mediastinum:? Mediastinal contours appear normal.? Heart size is normal.? ? Bones and chest wall:? No suspicious bony lesions.? Overlying soft tissues appear unremarkable.? ? IMPRESSION:? No acute cardiopulmonary findings. ? ? Dictated by: Maria E Al M.D. on 12/27/2022 at 11:58 ? ? Approved by: Maria E Al M.D. on 12/27/2022 at 11:58 CT scan - head: Radiologist's Impression: Maribell Banerjee??67??F??1955 ? Allergy/Adv: hydrocodone, morphine, codeine, meperidine, [oxycodone] (More??) Close Head/Neck CTA (Signed) JaysonGuille - 12/27/[address] (Signed) Guille Tyler - 12/27/22 Chest X-Ray (Signed) AngelManju mejiasah - 12/27/22 Carotid Doppler Study (Signed) Bernardino Irving - 09/02/22 Ankle X-Ray (Signed) Joni Rutledge - 08/31/22 Telemetry Strips 08/30/22 Chest X-Ray (Signed) Jack Farrar - 08/30/[address] (Signed) Guille Tyler - 08/30/[address] (Signed) Joni Rutledge - 08/30/22 Ankle X-Ray (Signed) Bernardino Irving - 08/30/22 Ankle X-Ray (Signed) Chanda Irvinge - 08/30/22 Mammogram Screening (Signed) Alfonso Echeverria - 11/05/21 Ribs X-Ray (Signed) Chanda Irvinge - 04/07/[address] (Signed) Khanh Irvingsse - 04/07/21 Abdomen/Pelvis CT (Signed) Aristides,Bernardino - 01/14/21 Vascular Ultrasound (Signed) Dima Briones - 06/29/[address] (Signed) Chanda Irvinge - 04/09/20 Hand X-Ray (Signed) Aristides,Bernardino - 04/09/[address] (Signed) Chanda Irvinge - 04/09/20 Launch?[place] [address] CT Scan Report Signed Patient: Maribell Banerjee MR#: [id number] : 1955 Acct:[id number] Age/Sex: 67 / F Date of Service: 12/27/22 Loc: ED Accession Number: [id number] ?? Procedure: CT head/brain wo con Ordering Provider: Milla Oliveira D.O. PROCEDURE:? CT HEAD/BRAIN WO CON ? INDICATIONS:? syncope, vision loss. ? TECHNIQUE:? Noncontrast 4.5 mm thick angled axial sections acquired from the foramen magnum to the vertex, with coronal and sagittal reformats.? For radiation dose reduction, the following was used:? automated exposure control, adjustment of mA and/or kV according to patient size.? ? COMPARISON:? [facility], CT, CT HEAD/BRAIN WO CON, 08/30/2022, 12:56. ? FINDINGS:? Image quality:? Excellent.? ? CSF spaces:? Basal cisterns are patent.? No extra-axial fluid collections.? The ventricles are symmetric in size and shape.? ? Brain:? No intracranial bleeds or masses.? There is mild cerebral volume loss for age, with resultant ventricular and sulcal prominence.? There are moderate periventricular and deep white matter chronic small vessel ischemic changes.? There is intracranial internal carotid artery atherosclerosis.? ? Skull and face:? Calvarium and visualized facial bones appear intact, without suspicious lesions.? ? Sinuses:? Visualized sinuses and mastoids are clear.? ? IMPRESSION:? No acute intracranial finding. ? ? Dictated by: Guille Tyler M.D. on 12/27/2022 at 12:34 ? ? Approved by: Guille Tyler M.D. on 12/27/2022 at 12:34?? ECG Data Attestation: I personally reviewed and interpreted this ECG as follows: Prior ECG tracings: available for review Interpretation: Sinus rhythm rate of 66 TN 142 QRS is 70 QTC [address]. No acute ST changes appreciated. Patient has prior from 08/30/2022 it appears similar. EKG 2. Sinus rhythm, rate of 64, TN 156 QRS is [address]TC [address]. No acute ST elevation or depression. MDM Narrative Medical decision making narrative: This is a 67-year-old female who has sounds like recurrent syncopal episodes likely related orthostatics she is on a beta-milagros daily but has also had vision changes that is not always consistently associated so had stroke workup as well head CT and CT angio were negative, CBC is negative, coags are negative with a creatinine 1.27 which is close to patient's baseline., AST is 44. Patient has repeat troponin and EKG are negative with no acute changes. NIH is negative. Orthostatics were obtained and are negative although patient felt dizzy, sitting to standing. Discussed with patient would like to keep for stroke workup and syncope, for MR, echo, monitoring with telemetry. I suspect patient is having some orthostatic hypotension causing her syncopal episodes but we discussed that her vision changes do not seem to be associated with that and I would like to keep her for further evaluation. Patient discussed she is COVID positive today. This is likely exacerbating her symptoms but not the cause of her problem. Patient states she does not wish to stay she understands risks versus benefits. Discussed that she needs some follow-up we discussed trying to decrease your metoprolol so she still has coverage in terms of your heart arrhythmia but see if this improves your symptoms. Discharge Plan Departure Patient Disposition: Home Clinical Impression: Syncope, Changes in vision, COVID-19 virus infection Instructions: DI for Orthostatic Hypotension Activity Restrictions/Additional Instructions: Please follow-up with your physician as you have elected not to stay for observation. Talk with your physician about getting an echo, Holter monitor and MRI to more fully evaluate your symptoms. I suspect your recent COVID infection is exacerbating your current symptoms. I would recommend decreasing your metoprolol from 100 mg daily(1 tablet) to 50 mg daily (1/2 tablet) to see if this improves your symptoms. I would recommend continuing to monitor your blood pressure as it may increase over time. Please return for worsening symptoms, new headaches, vision changes, recurrent passing out, dizziness, chest pain, shortness of breath, new swelling in her extremities, loss of bowel or bladder control, new numbness tingling or weakness, difficulty with speech or droop or other new or concerning changes. Prescriptions: No Action bupropion HCl 150 mg tablet sustained-release 12 hr 150 mg PO DAILY gabapentin 600 mg tablet 600 mg PO DAILY metoprolol succinate 100 mg tablet extended release 24 hr 100 mg PO DAILY clopidogrel 75 mg tablet 75 mg PO DAILY lisinopril 10 mg tablet 10 mg PO DAILY insulin lispro [Humalog U-100 Insulin] 100 unit/mL solution 55 unit SUBCUT DAILY MDD 55 PRN (Reason: Hyperglycemia) Label Comments: INJECT UP TO 55 UNITS PER DAY VIA INSULIN PUMP rosuvastatin 20 mg tablet 20 mg PO DAILY duloxetine 60 mg capsule,delayed release(DR/EC) 60 mg PO DAILY acetaminophen 325 mg Tablet 975 mg PO Q8H PRN (Reason: Pain, Mild (1-3)) Qty: 30 0RF polyethylene glycol 3350 [Miralax] 17 gram powder in packet 17 g PO DAILY PRN (Reason: constipation) Qty: 14 0RF senna 8.6 mg capsule 8.6 mg PO DAILY PRN (Reason: constipation) Qty: 30 0RF Referrals: Cinthya Zheng PA-C [Primary Care Provider] - Stand Alone Forms: Patient Portal/API
[2022-12-27 13:40] LABS: NT-proBNP (BNP-Adult 18+) 104 pg/mL (<125)
[2022-12-27 13:58] LABS: Troponin I < 0.012 ng/mL (0.01-0.034)
[2022-12-27 14:05] LABS: COVID19 -Nasal RAPID POSITIVE (Negative)
== END 2022-12-27 15:07 | disposition home or self-care (01) ==
PROVIDERS: Emergency Provider Emergency Medicine; PCP Physician Assistant
DX: U07.1 COVID-19 (principal); H53.9 Unspecified visual disturbance; R55 Syncope and collapse; R07.9 Chest pain, unspecified; M54.2 Cervicalgia
CPT/HCPCS: 36415; 70450; 70496; 70498; 71045; 80053; 82550; 83690; 83735; 83880; 84484; 85025; 85610; 85730; 87635; 93005; 99283; 99284; C9803; Q9967